=== PATIENT | female | born 1950 | race Caucasian/White ===

== ENCOUNTER 2019-06-14 06:00 | Outpatient (RCR) | payer MEDICARE, OTHER, SELFPAY | END 2019-06-29 23:00 | disposition home or self-care (01) | LOC: SPT 06:00 | PROVIDERS: Family Provider Nurse Practitioner Family; Visit Provider Orthopaedic Surgery | DX: Z47.89 Encounter for other orthopedic aftercare (principal); M75.102 Unspecified rotator cuff tear or rupture of left shoulder, not specified as traumatic; M25.612 Stiffness of left shoulder, not elsewhere classified; M25.512 Pain in left shoulder; R53.1 Weakness | CPT/HCPCS: 97110 ×4 ==

== ENCOUNTER 2019-07-21 13:37 | Outpatient (RCR) | payer MEDICARE, OTHER, SELFPAY | END 2019-08-14 23:59 | disposition home or self-care (01) | LOC: PULRHB 13:37 | PROVIDERS: Family Provider Nurse Practitioner Family; PCP Nurse Practitioner Family; Visit Provider Internal Medicine Pulmonary Disease | DX: J44.9 Chronic obstructive pulmonary disease, unspecified (principal) ==

== ENCOUNTER → 2019-08-13 08:12 | Outpatient (BNVA) | payer MEDICARE, OTHER, SELFPAY | PROVIDERS: Family Provider Nurse Practitioner Family; PCP Nurse Practitioner Family; Visit Provider Specialist | DX: G43.711 Chronic migraine without aura, intractable, with status migrainosus (principal); I67.1 Cerebral aneurysm, nonruptured | CPT/HCPCS: 64615; 99212; J0585 ==

== ENCOUNTER 2019-08-17 08:00 | Outpatient (RCR) | payer MEDICARE, OTHER, SELFPAY ==
[2019-08-17 08:40] VITALS: BMI 25.5
[2019-08-17 08:42] VITALS: BP 110/69; PULSE 94; RESP 16; TEMP 36.4; O2SAT 96
[2019-08-24 08:01] VITALS: BP 123/73; PULSE 107; RESP 16; TEMP 36.2; O2SAT 98
[2019-08-24 08:02] VITALS: BMI 24.3
== END 2019-09-12 23:59 | disposition home or self-care (01) ==
LOC: GILAB 08:00
PROVIDERS: Family Provider Nurse Practitioner Family; PCP Family Medicine; Visit Provider Nurse Practitioner Family
DX: N18.3 Chronic kidney disease, stage 3 (moderate) (principal); D50.9 Iron deficiency anemia, unspecified
CPT/HCPCS: 96365; J1439

== ENCOUNTER → 2019-11-12 09:14 | Outpatient (BNVA) | payer MEDICARE, OTHER, SELFPAY | PROVIDERS: Family Provider Nurse Practitioner Family; PCP Family Medicine; Visit Provider Specialist | DX: G43.711 Chronic migraine without aura, intractable, with status migrainosus (principal) | CPT/HCPCS: 64615; J0585 ==

== ENCOUNTER 2019-12-14 06:00 | Outpatient (RCR) | payer MEDICARE, OTHER, SELFPAY | END 2020-01-12 23:59 | disposition home or self-care (01) | LOC: PULRHB 06:00 | PROVIDERS: PCP Family Medicine; Visit Provider Internal Medicine Pulmonary Disease | DX: J44.9 Chronic obstructive pulmonary disease, unspecified (principal) | CPT/HCPCS: G0424 ==

== ENCOUNTER 2019-12-31 11:00 | Outpatient (CLI) | payer MEDICARE, OTHER, SELFPAY | END 2019-12-31 11:01 | disposition home or self-care (01) | LOC: SLEEP 01-01 10:47 | PROVIDERS: PCP Family Medicine; Visit Provider Internal Medicine Critical Care Medicine | DX: J44.9 Chronic obstructive pulmonary disease, unspecified (principal) | CPT/HCPCS: 94762 ==

== ENCOUNTER 2020-01-06 12:01 | Outpatient (CLI) | payer MEDICARE, OTHER, SELFPAY ==
[2020-01-06 13:30] VITALS: O2SAT 93
--- NOTE | 2020-01-06 13:30 | USCV_ITS ---
Sunitha Hawkins Age: 69 Gender: F : 1950 Exam Date: 01/06/2020 12:41 Ordering Phys: Bruno Hernandez MD Technologist: Julianna Anderson [place] [facility] [place]: SOB MURMUR BP: / HR: 78 Rhythm: Sinus Technical Quality: Adequate MEASUREMENTS (Male / Female) Normal Values 2D ECHO LV Diastolic Diameter PLAX 4.0 cm 4.2 - 5.9 / 3.9 - 5.3 cm LV Systolic Diameter PLAX 2.5 cm LV Chamber Size 2.6 cm IVS Diastolic Thickness 1.5 cm 0.6 - 1.0 / 0.6 - 0.9 cm IVS Systolic Thickness 1.7 cm LVPW Diastolic Thickness 1.1 cm 0.6 - 1.0 / 0.6 - 0.9 cm LVPW Systolic Thickness 1.3 cm RV Chamber Size 3.7 cm LVOT Diameter 2.0 cm LV Ejection Fraction 2D Teich 67.7 % LV Ejection Fraction MOD 2C 61.8 % LV Ejection Fraction 2C AL 61.8 % LA Diameter 2.9 cm LA Width 3.0 cm LA Height 3.5 cm RA Width 3.7 cm RA Height 4.1 cm Aorta at Sinotubular Diameter 2.8 cm M-MODE LV Diastolic Diameter MM 4.3 cm 4.2 - 5.9 / 3.9 - 5.3 cm LV Systolic Diameter MM 2.8 cm LV Ejection Fraction MM Teich 65.4 % IVS Diastolic Thickness MM 1.3 cm 0.6 - 1.0 / 0.6 - 0.9 cm IVS Systolic Thickness MM 1.5 cm LVPW Diastolic Thickness MM 1.1 cm 0.6 - 1.0 / 0.6 - 0.9 cm LVPW Systolic Thickness MM 1.3 cm RV Diastolic Diameter MM 1.2 cm Aortic Annulus Diameter 3.9 cm LA Ao Ratio MM 0.7 MV E Point Septal Separation 0.2 cm DOPPLER AV Peak Velocity 137.0 cm/s LVOT Peak Velocity 113.0 cm/s AV Area Cont Eq vti 2.7 cm squared AV Area Cont Eq pk 2.7 cm squared MV Area PHT 4.8 cm squared Mitral E to A Ratio 1.0 MV E' Velocity 14.0 cm/s Mitral E to MV E' Ratio 5.5 Mitral E to LV E' Lateral Ratio 4.5 Mitral E to LV E' Septal Ratio 7.1 TR Peak Velocity 212.7 cm/s TR Peak Gradient 18.1 mmHg TR Mean Velocity 168.7 cm/s TR Mean Gradient 12.4 mmHg TR Velocity Time Integral 46.4 cm TV Peak E Velocity 56.0 cm/s PV Peak Velocity 75.0 cm/s QpQs Shunt Ratio 1.5 RV Acceleration Time 0.2 s RV Ejection Time 0.4 s RV AcT/ET 0.4 FINDINGS Left Ventricle Normal left ventricular cavity size. Normal left ventricular systolic function.left ventricular ejection fraction is estimated at 60 %. No regional wall motion abnormalities. Grade I/IV diastolic dysfunction (abnormal relaxation filling pattern), normal to mildly elevated filling pressures. Right Ventricle The right ventricle is normal in size and function. RVSP could not be calculated due to incomplete tricuspid regurgitation velocity profile. Right Atrium The right atrium is normal in size. Left Atrium The left atrium is normal in size. Mitral Valve Structurally normal mitral valve without significant stenosis or prolapse. There is no mitral regurgitation. Aortic Valve Moderate aortic valve calcification. No aortic valve stenosis. Trace aortic valve regurgitation. Tricuspid Valve Structurally normal tricuspid valve without significant stenosis or regurgitation. Pulmonic Valve Structurally normal pulmonic valve without significant stenosis. There is no pulmonic regurgitation. Pericardium Normal pericardium without effusion. Aorta Normal ascending aorta dimension. CONCLUSIONS 1-Normal left ventricular cavity size. Normal left ventricular systolic function.left ventricular ejection fraction is estimated at 60 %. No regional wall motion abnormalities. Grade I/IV diastolic dysfunction (abnormal relaxation filling pattern), normal to mildly elevated filling pressures. 2-The right ventricle is normal in size and function. RVSP could not be calculated due to incomplete tricuspid regurgitation velocity profile. 3-Moderate aortic valve calcification. No aortic valve stenosis. Trace aortic valve regurgitation. 4-Moderate aortic valve calcification. No aortic valve stenosis. Trace aortic valve regurgitation. 5-There is no pericardial effusion. 6-Right atrial pressure is around 5 mm of mercury. 7-No significant change since the prior echocardiogram study of 04/05/2015. Erica Leija MD (Electronically Signed) Final Date: 06 January 2020 18:27 S
== END 2020-01-06 12:02 | disposition home or self-care (01) ==
LOC: RAD 12:06
PROVIDERS: PCP Family Medicine; Visit Provider Internal Medicine Critical Care Medicine
DX: J44.9 Chronic obstructive pulmonary disease, unspecified (principal); R06.02 Shortness of breath; R01.1 Cardiac murmur, unspecified; I70.0 Atherosclerosis of aorta
CPT/HCPCS: 93306

== ENCOUNTER 2020-01-13 06:00 | Outpatient (RCR) | payer MEDICARE, OTHER, SELFPAY | END 2020-02-12 23:59 | disposition home or self-care (01) | LOC: PULRHB 06:00 | PROVIDERS: PCP Family Medicine; Visit Provider Internal Medicine Pulmonary Disease | DX: J44.9 Chronic obstructive pulmonary disease, unspecified (principal) | CPT/HCPCS: 94010; G0424 ==

== ENCOUNTER 2020-03-17 14:45 | Outpatient (CLI) | payer MEDICARE, OTHER, SELFPAY ==
--- NOTE | 2020-03-17 15:15 | CT_ITS ---
WS: [id number] CT CHEST TECHNIQUE: Noncontrast CT of the chest with coronal and sagittal reformatted images. CLINICAL INFORMATION: Pulmonary nodule COMPARISON: CT and 2018 DLP: 804.[address] scans at [facility] use at least one of these dose optimization techniques: automat ed exposure control; mA and/or kV adjustment per patient size (includes targeted exams where dose is matched to clinical indication); or iterative reconstruction. FINDINGS: Stable postoperative changes left upper lobectomy. Moderate chronic emphysematous changes. No acute p ulmonary infiltrates. No focal pneumonia or pleural fluid. 3 mm noncalcified pulmonary nodule left lo wer lobe laterally is stable. Previously described hazy opacity in right lower lobe has resolved in t he interim. Thyroid gland is normal. No mediastinal or hilar lymphadenopathy. Adrenal glands are normal. Cholecys tectomy clips. Fatty atrophy of the pancreas. No axillary lymphadenopathy. Prior postoperative change s left upper lobe. CT/CT chest wo con [id number] IMPRESSION: 1. Moderate chronic emphysematous changes. No acute pulmonary infiltrates. 2. Previously described hazy opacity in the right lower lobe has resolved. 3. Stable postoperative changes left upper lobectomy. 4. No mediastinal or hilar lymphadenopathy. 5. Long-term stability 3 mm noncalcified pulmonary nodule left lower lobe late rally.
== END 2020-03-17 14:46 | disposition home or self-care (01) ==
LOC: RADWPI 14:48
PROVIDERS: PCP Family Medicine; Visit Provider Internal Medicine Critical Care Medicine
DX: R91.1 Solitary pulmonary nodule (principal)
CPT/HCPCS: 71250

== ENCOUNTER → 2020-06-30 12:24 | Outpatient (BNVA) | payer MEDICARE, OTHER, SELFPAY | PROVIDERS: PCP Family Medicine; Visit Provider Specialist | DX: G43.711 Chronic migraine without aura, intractable, with status migrainosus (principal); Z87.891 Personal history of nicotine dependence | CPT/HCPCS: 64615; J0585 ==

== ENCOUNTER 2020-09-15 08:41 | Outpatient (CLI) | payer MEDICARE, OTHER, SELFPAY ==
--- NOTE | 2020-09-15 08:52 | MM_ITS ---
WS: [id number] BILATERAL DIGITAL SCREENING MAMMOGRAPHY WITH CAD CLINICAL INFORMATION: SCREENING COMPARISON: TECHNIQUE: Bilateral CC and MLO views. FINDINGS: Scattered fibroglandular densities bilaterally. No suspicious focal mass, asymmetry, calcifications, or architectural distortion. No evidence of malignancy. Punctate and lucent centered calcifications. Calcified fibroadenoma inner quadrant left breast. MM/[place] [id number] IMPRESSION: BI-RADS: 2-Benign FOLLOW UP: 1 Year Follow-up Recommend return to annual screening mammography.
== END 2020-09-15 08:42 | disposition home or self-care (01) ==
LOC: RADSHAW 08:42
PROVIDERS: PCP Family Medicine; Visit Provider Family Medicine
DX: Z12.31 Encounter for screening mammogram for malignant neoplasm of breast (principal)
CPT/HCPCS: 77067

== ENCOUNTER → 2020-09-22 08:09 | Outpatient (BNVA) | payer MEDICARE, OTHER, SELFPAY | PROVIDERS: PCP Family Medicine; Visit Provider Specialist | DX: G43.711 Chronic migraine without aura, intractable, with status migrainosus (principal); Z87.891 Personal history of nicotine dependence | CPT/HCPCS: 64615; J0585 ==

== ENCOUNTER → 2020-10-05 15:47 | Outpatient (BNVA) | payer MEDICARE, OTHER, SELFPAY | PROVIDERS: PCP Family Medicine; Visit Provider Internal Medicine | DX: Z01.812 Encounter for preprocedural laboratory examination (principal); R19.5 Other fecal abnormalities; D50.9 Iron deficiency anemia, unspecified; Z20.822 Contact with and (suspected) exposure to COVID-19 | CPT/HCPCS: 87635 ==

== ENCOUNTER 2020-10-10 08:20 | Day surgery (SDC) | payer MEDICARE, OTHER, SELFPAY ==
[2020-10-07 12:10] VITALS: BMI 25.4
[2020-10-10 08:51] VITALS: BP 143/85; PULSE 94; RESP 16; TEMP 36.3; O2SAT 92
--- NOTE | 2020-10-10 09:14 | W.PM.OPSUD ---
Surgery/Procedure H&P Update DATE OF PROCEDURE: October 10, 2020 DATE H&P PERFORMED: 10/05/20 PREOP DIAGNOSIS: Double PLANNED PROCEDURE: Operation Date: 10/10/20 09:30 Proposed Procedures p EGD/colonoscopy [id number] 67421 19.5(Not Applicable) - Nishant Villagran MD s Colonoscopy(Not Applicable) - Nishant Villagran MD
[2020-10-10] MEDS: sodium chloride 0.9% 1,000 ML 30 ML IV (09:20)
--- NOTE | 2020-10-10 09:37 | ANES.PREANE2 ---
Pre-Anesthetic Assessment Pre-Anesthetic Assessment: Height/Weight: Height 1.78 m Weight 80.286 kg Temp Pulse Resp BP Pulse Ox 97.4 F L 94 16 143/85 92 10/10/20 08:51 10/10/20 08:51 10/10/20 08:51 10/10/20 08:51 10/10/20 08:51 Preop Diagnosis: Occult blood in stool Proposed Procedure: Operation Date: 10/10/20 09:30 Proposed Procedures p EGD/colonoscopy 39401 13365 19.5(Not Applicable) - Nishant Villagran MD s Colonoscopy(Not Applicable) - Nishant Villagran MD Was Beta Jaylen taken within 24 hours: N/A Was Clonidine taken within 24 hours: N/A Last intake: Intake Last Liquid Date 10/09/20 Last Liquid Time 12:00 Last Solid Date 10/08/20 Last Solid Time 18:00 Social: Social History: No alcohol and No tobacco Exam: Pre-Anes Outpt Exam: alert and oriented x 3 Airway: Submandibular: WNL Cervical ROM: WNL MP: 1 Dentition: Full History/ROS: No significant history except as noted Pulmonary: Pulmonary: COPD and SOB (with exercise.) Comments: pulmonary rehab patient left 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 CV/HEM: Comments: patient reports tachycardia with exercise, which does not resolve. : : None reported Hepatic: Hepatic: None reported GI: GI: GERD Metabolic: Metabolic: None reported Musc/skel: Musc/skel: None reported Neuropsych: Neuropsych: None reported Anesthetic Plan: ASA status: 3 Anesthesia: Anesthesia Evaluation and MAC Risk of > 500 ml blood loss (7ml/kg in children): No Meds/Allergies Current Medications: Current Medications Generic Name Dose Route Start Last Admin Trade Name Freq PRN Reason Stop Dose Admin Sodium Chloride 1,000 mls @ 30 ml s/hr 10/10/20 08:30 10/10/20 09:20 Sodium Chloride 0.9% IV 30 mls/hr .Q24H MESSI Administration PFSH Anesthesia PFSH: Medical History (Updated 10/05/20 @ 15:33 by Nishant Villagran MD) COPD (chronic obstructive pulmonary disease) Depression with anxiety Surgical History H/O knee surgery H/O shoulder surgery History of cholecystectomy History of hysterectomy History of lobectomy of lung History of lung surgery Social History Smoking and tobacco status: former smoker Quit status (tobacco): has quit using tobacco Year quit tobacco: 2002 - >0.5 ppd x 15 Year Alcohol intake: never Lives independently: Yes Household members: spouse Marital status: Current occupational status: retired History of recent travel: No Data Anesthesia Cardiac Studies: No Data to Display
[2020-10-10 10:09] VITALS: BP 118/87; PULSE 82; RESP 12; TEMP 36.5; O2SAT 100
[2020-10-10 10:23] VITALS: BP 129/83; PULSE 85; RESP 10; O2SAT 95
--- NOTE | 2020-10-10 10:46 | ANE.PACU2 ---
Inpatient post-anesthesia follow up: Airway intact: Yes Vital signs: Temperature 97.7 F Pulse Rate 85 Respiratory Rate 10 Blood Pressure 129/83 Pulse Oximetry 95 Oxygen Delivery Me thod Room Air Oxygen Flow Rate 2 Fraction of Inspir ed Oxygen Hydration adequate: Yes Mental status: Baseline
[2020-10-11 14:14] LABS: H. Pylori / CLO Test Negative
== END 2020-10-10 11:03 | disposition home or self-care (01) ==
PROVIDERS: PCP Family Medicine; Visit Provider Internal Medicine
PROC: 0DJ08ZZ Inspection of Upper Intestinal Tract, Via Natural or Artificial Opening Endoscopic (ICD-10-PCS; CPT 43235; principal; 2020-10-10 09:30)
PROC: 0DJD8ZZ Inspection of Lower Intestinal Tract, Via Natural or Artificial Opening Endoscopic (ICD-10-PCS; CPT 45378; 2020-10-10 09:30)
DX: D50.9 Iron deficiency anemia, unspecified (principal); K29.71 Gastritis, unspecified, with bleeding; R19.5 Other fecal abnormalities; J44.9 Chronic obstructive pulmonary disease, unspecified; Z87.891 Personal history of nicotine dependence
CPT/HCPCS: 43239; 45378; 87077; 88305; J7030

== ENCOUNTER → 2020-10-26 13:05 | Day surgery (SDC) | payer MEDICARE, OTHER, SELFPAY ==
[2020-10-26] MEDS: ferric carboxy (IVPB) 750 MG in sodium chloride 0.9% (100 ml) 100 ML 345 MG IV (13:30)
[2020-10-26 14:04] VITALS: BP 127/67; PULSE 89; RESP 18; TEMP 36.1; O2SAT 97; BMI 24.5
== END ==
PROVIDERS: PCP Family Medicine; Visit Provider Internal Medicine
DX: D50.9 Iron deficiency anemia, unspecified (principal)
CPT/HCPCS: 96365; J1439

== ENCOUNTER → 2020-11-01 12:33 | Day surgery (SDC) | payer MEDICARE, OTHER, SELFPAY ==
[2020-11-01 12:55] VITALS: BP 127/75; PULSE 98; RESP 18; TEMP 36.5; O2SAT 98; BMI 24.5
[2020-11-01] MEDS: ferric carboxy (IVPB) 750 MG in sodium chloride 0.9% (100 ml) 100 ML 300 MG IV (13:28)
== END ==
PROVIDERS: PCP Family Medicine; Visit Provider Internal Medicine
DX: D50.9 Iron deficiency anemia, unspecified (principal)
CPT/HCPCS: 96365; J1439

== ENCOUNTER → 2020-11-23 13:00 | Outpatient (BNVA) | payer MEDICARE, OTHER, SELFPAY | PROVIDERS: PCP Family Medicine; Visit Provider Internal Medicine | DX: K90.9 Intestinal malabsorption, unspecified (principal); K29.71 Gastritis, unspecified, with bleeding; R19.5 Other fecal abnormalities; D50.9 Iron deficiency anemia, unspecified | CPT/HCPCS: 83550; 85025 ==

== ENCOUNTER 2021-01-04 16:59 | Outpatient (CLI) | payer MEDICARE, OTHER, SELFPAY ==
--- NOTE | 2021-01-04 17:30 | MR_ITS ---
WS: [id number] MRI LUMBAR SPINE NONCONTRAST HISTORY: Lumbar pain with failed medical therapy. COMPARISON: None available. TECHNIQUE: Sagittal and axial multisequence imaging is submitted. Compression fracture at T7 by 20%. Slight increase in the lumbar lordosis. L4 anterolisthesis by 3 mm. No acute fracture. There is mild marrow edema involving the superior endplate of L5. Mild disc space desiccation throughout. Conus terminates normally at L1. L1-L2: Mild facet joint arthritis. No stenosis. L2-L3: Mild annular disc bulging with ligamentum flavum hypertrophy and facet arthritis. Small amount of fluid in the facet joints. There is very slight encroachment upon the L3 nerve roots in the later al recesses. L3-L4: Diffuse annular disc bulging. Mild ligamentum flavum hypertrophy and a small amount of fluid i n the facet joints. Mild disc encroachment into the lateral recesses contacting the L4 nerve roots. L4-L5: Mild annular disc bulge with a central small disc protrusion. Moderate ligamentum flavum hyper trophy and facet arthritis. Ligamentum flavum hypertrophy encroaches into the thecal sac causing a mo derate central, bilateral subarticular recess and mild foraminal stenosis. L5-S1: Mild disc bulging. No significant stenosis. Small cortical LEFT renal cyst. Abdominal aortic aneurysm measures 3.1 cm in diameter. MR/MR lumbar spine wo con* [id number] IMPRESSION: 1. No acute lumbar spine fracture. 2. Moderate central and bilateral subarticular recess stenosis at L4-5 due to disc disease with a small central protrusion and ligamentum flavum hypertrophy. Only mild foraminal narrowing. 3. Mild encroachment into the lateral recesses at L2-3 and L3-4 with encroachm ent upon the L3 and L4 nerve roots respectively. 4. Age-indeterminate 20% T7 compression fracture.
== END 2021-01-04 17:00 | disposition home or self-care (01) ==
LOC: RADSHAW 17:03
PROVIDERS: PCP Family Medicine; Visit Provider Internal Medicine
DX: M54.5 Low back pain (principal); M48.061 Spinal stenosis, lumbar region without neurogenic claudication; I71.4 Abdominal aortic aneurysm, without rupture; N28.1 Cyst of kidney, acquired; S22.069A Unspecified fracture of T7-T8 vertebra, initial encounter for closed fracture; X58.XXXA Exposure to other specified factors, initial encounter
CPT/HCPCS: 72148

== ENCOUNTER → 2021-01-26 15:46 | Outpatient (BNVA) | payer MEDICARE, OTHER, SELFPAY | PROVIDERS: PCP Family Medicine; Visit Provider Orthopaedic Surgery | DX: M54.5 Low back pain (principal); M81.0 Age-related osteoporosis without current pathological fracture; M47.816 Spondylosis without myelopathy or radiculopathy, lumbar region | CPT/HCPCS: 72110 ==

== ENCOUNTER → 2021-01-30 14:00 | Outpatient (BNVA) | payer MEDICARE, OTHER, SELFPAY | PROVIDERS: PCP Family Medicine; Referring Provider Orthopaedic Surgery; Visit Provider Anesthesiology Pain Medicine | DX: M43.16 Spondylolisthesis, lumbar region (principal); M47.816 Spondylosis without myelopathy or radiculopathy, lumbar region; Z79.891 Long term (current) use of opiate analgesic | CPT/HCPCS: 99205 ==

== ENCOUNTER → 2021-02-23 10:39 | Outpatient (BNVA) | payer MEDICARE, OTHER, SELFPAY | PROVIDERS: PCP Family Medicine; Referring Provider Internal Medicine; Visit Provider Specialist | DX: M75.02 Adhesive capsulitis of left shoulder (principal) | CPT/HCPCS: 73030 ==

== ENCOUNTER 2021-03-07 16:31 | Outpatient (CLI) | payer MEDICARE, OTHER, SELFPAY ==
--- NOTE | 2021-03-07 16:45 | MR_ITS ---
WS: [id number] MRI LEFT SHOULDER NONCONTRAST TECHNIQUE: Sagittal T2, coronal T1, T2 and proton density imaging. Axial gradient PDE imaging. CLINICAL INFORMATION: M75.40 - Impingement syndrome of unspecified shoulder FINDINGS: Moderate degenerative arthritis of the AC joint with mild downsloping acromion. Mild edema. Small shabnam unt of subacromial/subdeltoid fluid. Chronic thinning of the distal supraspinatus with tendinopathy. Tiny intrasubstance tear in the distal supraspinatus. Mild narrowing of the subacromial space. No ful l-thickness rotator cuff tears. Normal infraspinatus. Normal teres minor. Normal subscapularis. Small joint effusion. Degenerative arthritis glenohumeral joint. Normal biceps tendon in the bicipital groove. Glenoid labrum appears grossly normal. Normal bone jocelyn ow signal in the glenoid and humerus. Evidence of presumed interval acromioplasty compared to previou s. MR/MR shoulder LT wo con* [id number] IMPRESSION: 1. Evidence of prior acromioplasty compared to 2019. 2. Tendinopathy with small intrasubstance tear involving the distal supraspina tus near the insertion. No full-thickness rotator cuff tears. 3. Mild chronic thinning of the distal supraspinatus and infraspinatus. 4. Normal biceps tendon in the bicipital groove. 5. Glenoid labrum appears grossly normal.
== END 2021-03-07 16:32 | disposition home or self-care (01) ==
LOC: RADSHAW 16:35
PROVIDERS: PCP Family Medicine; Visit Provider Specialist
DX: M75.42 Impingement syndrome of left shoulder (principal)
CPT/HCPCS: 73221

== ENCOUNTER 2021-03-15 06:00 | Outpatient (RCR) | payer MEDICARE, OTHER, SELFPAY | END 2021-04-13 23:59 | disposition home or self-care (01) | LOC: PULRHB 06:00 | PROVIDERS: PCP Internal Medicine; Visit Provider Internal Medicine Pulmonary Disease | DX: J44.9 Chronic obstructive pulmonary disease, unspecified (principal); M47.816 Spondylosis without myelopathy or radiculopathy, lumbar region; Z79.891 Long term (current) use of opiate analgesic | CPT/HCPCS: 64493; 64494; 64495; J3490 ==

== ENCOUNTER → 2021-03-30 10:27 | Outpatient (BNVA) | payer MEDICARE, OTHER, SELFPAY | PROVIDERS: PCP Internal Medicine; Visit Provider Anesthesiology Pain Medicine | DX: M43.16 Spondylolisthesis, lumbar region (principal); M47.816 Spondylosis without myelopathy or radiculopathy, lumbar region; Z79.891 Long term (current) use of opiate analgesic | CPT/HCPCS: 99214 ==

== ENCOUNTER → 2021-04-11 13:00 | Outpatient (BNVA) | payer MEDICARE, OTHER, SELFPAY | PROVIDERS: PCP Internal Medicine; Visit Provider Anesthesiology Pain Medicine | DX: M47.816 Spondylosis without myelopathy or radiculopathy, lumbar region (principal); Z79.891 Long term (current) use of opiate analgesic | CPT/HCPCS: 64635; 64636 ==

== ENCOUNTER → 2021-04-25 12:48 | Outpatient (BNVA) | payer MEDICARE, OTHER, SELFPAY | PROVIDERS: PCP Internal Medicine; Visit Provider Anesthesiology Pain Medicine | DX: M47.816 Spondylosis without myelopathy or radiculopathy, lumbar region (principal); Z79.891 Long term (current) use of opiate analgesic; Z87.891 Personal history of nicotine dependence | CPT/HCPCS: 64635; 64636; J1030 ==

== ENCOUNTER → 2021-05-01 09:48 | Outpatient (BNVA) | payer MEDICARE, OTHER, SELFPAY | PROVIDERS: PCP Internal Medicine; Visit Provider Nurse Practitioner Family | DX: R30.9 Painful micturition, unspecified (principal); R41.0 Disorientation, unspecified; R46.89 Other symptoms and signs involving appearance and behavior; R53.83 Other fatigue; R41.89 Other symptoms and signs involving cognitive functions and awareness; D50.9 Iron deficiency anemia, unspecified; N30.01 Acute cystitis with hematuria; R41.3 Other amnesia; E78.5 Hyperlipidemia, unspecified; R30.0 Dysuria | CPT/HCPCS: 80053; 81003; 82607; 82728; 83550; 84443; 87077; 87086; 87184 ==

== ENCOUNTER → 2021-05-09 08:59 | Outpatient (BNVA) | payer MEDICARE, OTHER, SELFPAY | PROVIDERS: PCP Internal Medicine; Visit Provider Anesthesiology Pain Medicine | DX: M79.18 Myalgia, other site (principal); M43.16 Spondylolisthesis, lumbar region; M47.816 Spondylosis without myelopathy or radiculopathy, lumbar region; Z87.891 Personal history of nicotine dependence | CPT/HCPCS: 20553; 99213; 99214; J1030; J3490 ==

== ENCOUNTER 2021-05-15 12:58 | Outpatient (CLI) | payer MEDICARE, OTHER, SELFPAY ==
--- NOTE | 2021-05-15 13:15 | CT_ITS ---
WS: [id number] CT HEAD NONCONTRAST HISTORY: Memory loss, Behaviors/Confusion TECHNIQUE: Contiguous axial imaging performed through the brain in 2.5 mm imaging. Bone and soft tiss ue windows. All CT scans at [facility] use at least one of these dose optimization techniques: automated exposure control; mA and/or kV adjustment per patient size (includes targeted exams where dose is matched to clinical indication); or iterative reconstruction. DLP: 992.04 mGycm COMPARISON: 08/27/2016 No acute intracranial hemorrhage, midline shift or mass effect. Very mild atrophy and mild chronic microvascular ischemic type changes. Similar to the prior examinat ion. No prior infarcts. Ventricles: Normal size with no hydrocephalus. Paranasal sinuses: As visualized are clear. Mastoid air cells: Well pneumatized. Calvarium and scalp: Skull is intact with no soft tissue edema or swelling. CT/CT head wo con* [id number] IMPRESSION: 1. No acute intracranial hemorrhage or mass effect. 2. Mild atrophy and chronic ischemic type changes. Very similar to the prior s tudy of 08/27/2016.
== END 2021-05-15 12:59 | disposition home or self-care (01) ==
PROVIDERS: PCP Internal Medicine; Visit Provider Nurse Practitioner Family
DX: R46.89 Other symptoms and signs involving appearance and behavior (principal); G31.9 Degenerative disease of nervous system, unspecified
CPT/HCPCS: 70450

== ENCOUNTER 2021-06-14 06:00 | Outpatient (RCR) | payer MEDICARE, OTHER, SELFPAY | END 2021-07-14 23:59 | disposition home or self-care (01) | LOC: SPT 06:00 | PROVIDERS: PCP Internal Medicine; Referring Provider Orthopaedic Surgery; Visit Provider Orthopaedic Surgery | DX: M43.16 Spondylolisthesis, lumbar region (principal) | CPT/HCPCS: 97110; 97161 ==

== ENCOUNTER → 2021-08-02 09:09 | Outpatient (BNVA) | payer MEDICARE, OTHER, SELFPAY | PROVIDERS: PCP Family Medicine; Visit Provider Anesthesiology Pain Medicine | DX: M43.16 Spondylolisthesis, lumbar region (principal); M47.816 Spondylosis without myelopathy or radiculopathy, lumbar region | CPT/HCPCS: 99214 ==

== ENCOUNTER 2021-10-12 14:04 | Outpatient (CLI) | payer MEDICARE, OTHER, SELFPAY ==
--- NOTE | 2021-10-12 14:18 | MM_ITS ---
WS: [id number] BILATERAL 3D TOMOSYNTHESIS DIGITAL SCREENING MAMMOGRAPHY WITH CAD CLINICAL INFORMATION: SCREENING HISTORY: Screening mammogram. No current complaints. COMPARISON: September 15, 2020 TECHNIQUE: Bilateral CC and MLO views. FINDINGS: Scattered fibroglandular densities bilaterally. Dystrophic calcification LEFT breast. Incidental punc amado calcifications are stable. No suspicious focal mass, asymmetry, calcifications, or architectural distortion. No evidence of malignancy. MM/[place] [id number] IMPRESSION: BI-RADS: 2-Benign FOLLOW UP: 1 Year Follow-up Recommend return to annual screening mammography.
== END 2021-10-12 14:05 | disposition home or self-care (01) ==
LOC: RAD 14:07
PROVIDERS: PCP Family Medicine; Visit Provider Family Medicine
DX: Z12.31 Encounter for screening mammogram for malignant neoplasm of breast (principal)
CPT/HCPCS: 77063; 77067

== ENCOUNTER → 2021-11-23 08:52 | Outpatient (BNVA) | payer MEDICARE, OTHER, SELFPAY | PROVIDERS: PCP Family Medicine; Visit Provider Internal Medicine Critical Care Medicine | DX: J44.9 Chronic obstructive pulmonary disease, unspecified (principal); J96.11 Chronic respiratory failure with hypoxia; R91.1 Solitary pulmonary nodule; A31.0 Pulmonary mycobacterial infection; Z87.891 Personal history of nicotine dependence | CPT/HCPCS: 71046; 99214 ==

== ENCOUNTER 2021-11-26 08:27 | Inpatient (IN) | payer MEDICARE, OTHER, SELFPAY ==
[2021-11-26] VITALS (14 sets, daily range): BP systolic 84–127; BP diastolic 52–61; PULSE 78–110; RESP 12–20; TEMP 36.6–37.3; O2SAT 90–100; BMI 21.6
--- NOTE | 2021-11-26 08:30 | XRR_ITS ---
PROCEDURE INFORMATION: Exam: XR Chest Exam date and time: 11/26/2021 8:46 AM Age: 70 years old Clinical indication: Shortness of breath; Prior surgery; Surgery date: 6+ months; Surgery type: Lt upper lobectomy; Additional info: SOB TECHNIQUE: Imaging protocol: XR of the chest. Views: 1 view. COMPARISON: CR XR chest 2V* [id number] 11/23/2021 9:45 AM FINDINGS: Lungs: Postsurgical changes in the left lung noted. Confluent ground-glass densities along the periphery of the right lung not present on prior exam. Pleural spaces: No pneumothorax. No pleural effusion. Heart/Mediastinum: The cardiomediastinal silhouette is within normal limits. Bones/joints: Unremarkable. XR/XR chest 1V portable [id number] IMPRESSION: Interval development of airspace opacities in the right lung concerning for pneumonia.
--- NOTE | 2021-11-26 08:31 | ECG_ITS ---
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 Measurements Intervals [facility] Rate: 107 P: 69 IL: 139 QRS: 75 QRSD: 90 T: 68 QT: 258 QTc: 345 Interpretive Statements SINUS TACHYCARDIA NONSPECIFIC T-WAVE ABNORMALITY ABNORMAL RHYTHM ECG Compared to ECG 03/31/2018 14:20:07 No significant changes Electronically Signed On 11-26-2021 13:24:19 CDT by Gricelda Winters M.D. [email or web address]
--- NOTE | 2021-11-26 08:43 | W.ED.SOB ---
HPI - SOB/Dyspnea General: Chief Complaint: Shortness of Breath/Dyspnea Stated Complaint: low oxygen/rattle in chest/shakiness/nausea Time Seen by Provider: 11/26/21 08:30 History of Present Illness: HPI Narrative: 70-year-old with history of COPD presents shortness of breath. States this started last night. Denies any fevers or chills. Does report rattling when she breathes and nausea but denies any abdominal pain chest pain vomiting diarrhea or constipation. Denies any lower extremity pain or swelling. She is normally on 2 L of oxygen with activity but now requires 4 L at rest. She was saturating at 86% at home on 2 L at rest. Review of Systems Narrative: - CONSTITUTIONAL: Denies weight loss, fever and chills. - HEENT: Denies changes in vision and hearing. - RESPIRATORY: As above - CV: Denies palpitations and CP. - GI: Denies abdominal pain, nausea, vomiting and diarrhea. - : Denies dysuria and urinary frequency. - MSK: Denies myalgia and joint pain. - SKIN: Denies rash and pruritus. - NEUROLOGICAL: Denies headache, weakness, numbness and syncope. - PSYCHIATRIC: Denies suicidal ideation PFSH ED PFSH: Medical History COPD (chronic obstructive pulmonary disease) Depression with anxiety Surgical History H/O knee surgery H/O shoulder surgery History of cholecystectomy History of hysterectomy History of lobectomy of lung History of lung surgery Family History Mother Stroke Denies family history of Anesthesia complication Bleeding disorder Social History Smoking and tobacco status: former smoker Quit status (tobacco): has quit using tobacco Year quit tobacco: 2002 - >0.5 ppd x 15 Year Alcohol intake: never Lives independently: Yes Household members: spouse Marital status: Current occupational status: retired History of recent travel: No Physical Exam Narrative: EXAM NARRATIVE: - GENERAL: Alert and oriented x 3. No acute distress. Well-nourished. - EYES: EOMI. Anicteric. - HENT: Atraumatic, no C-spine tenderness. Moist mucous membranes. No scleral icterus. No cervical lymphadenopathy. - LUNGS: On nasal cannula, bilateral wheezing, equal lung sounds bilaterally. No respiratory distress. - CARDIOVASCULAR: Regular rate and rhythm. No murmur. No JVD. - ABDOMEN: Soft, non-tender and non-distended. Negative CVA tenderness bilaterally, no rebound or guarding, negative Cabrera sign. No palpable masses. - EXTREMITIES: No edema. Non-tender. - SKIN: No rashes or lesions. Warm. - NEUROLOGIC: No meningismus or focal neurological deficits. CN II-XII grossly intact. - PSYCHIATRIC: Cooperative. Appropriate mood and affect. Course Vital Signs: Vital signs: Vital Signs Temperature 99.1 F 11/26/21 08:33 Pulse Rate 105 H 11/26/21 09:19 Respiratory Rate 18 11/26/21 09:07 Blood Pressure 89/61 11/26/21 09:07 Pulse Oximetry 99 11/26/21 09:07 MDM - SOB/Dyspnea Medical Decision Making 70-year-old presents shortness of breath. Does have increased oxygen need to 4 L by nasal cannula from baseline of 2. Physical exam also reveals wheezing concerning for COPD exacerbation. Improved albuterol and steroids. However x-ray concerning for pneumonia. Does have white count elevation. Sepsis order set initiated. Patient is hemodynamically stable afebrile nontoxic-appearing. D-dimer is elevated but CT scan does not reveal any sign of PE. EKG and troponin do not reveal any sign of acute ischemia or acute abnormality. Remainder of lab work and imaging reviewed. Discussed with hospitalist and they agreed patient would benefit from admission. Patient admitted in stable condition. Further evaluation management per hospitalist team. Lab Data : 11/26/21 09:03 11/26/21 09:03 Labs/Radiology: Radiology Impressions Chest X-Ray 11/26/21 08:30 IMPRESSION: Interval development of airspace opacities in the right lung concerning for pneumonia. Chest CTA 11/26/21 09:36 IMPRESSION: 1. No pulmonary embolism identified. No signs of right heart strain. 2. Airspace opacities in the lungs concerning for pneumonia most predominant in the right lower lobe. 3. Mild enlargement of the main pulmonary artery which may be seen in patients with pulmonary hypertension. 4. Emphysematous disease. Laboratory Results WBC 13.2 10^3/uL (4.0-10.0) H 11/26/21 09:03 RBC 4.11 10^6/uL (4.1-5.3) 11/26/21 09:03 Hgb 10.6 g/dL (11.5-15.3) L 11/26/21 09:03 Hct 36.1 % (37.0-47.0) L 11/26/21 09:03 MCV 87.8 fl (81-99) 11/26/21 09:03 MCH 25.8 pg (28.0-34.0) L 11/26/21 09:03 MCHC 29.4 g/dL (30.0-36.0) L 11/26/21 09:03 RDW 14.8 % (12.1-15.1) 11/26/21 09:03 Plt Count 369 10^3/cmm (130-400) 11/26/21 09:03 MPV 9.1 fL (7.4-10.4) 11/26/21 09:03 Neut % (Auto) 86.2 % 11/26/21 09:03 Lymph % (Auto) 7.8 % 11/26/21 09:03 [place] % (Auto) 4.9 % 11/26/21 09:03 Eos % (Auto) 0.6 % 11/26/21 09:03 Baso % (Auto) 0.2 % 11/26/21 09:03 Neut # (Auto) 11.37 10^3/uL (1.8-7.7) H 11/26/21 09:03 Lymph # (Auto) 1.0 10^3/uL (0.8-4.8) 11/26/21 09:03 [place] # (Auto) 0.7 10^3/uL (0.2-0.9) 11/26/21 09:03 Eos # (Auto) 0.1 10^3/uL (0.0-0.8) 11/26/21 09:03 Baso # (Auto) 0.0 10^3/uL (0.0-0.1) 11/26/21 09:03 Nucleated RBC % (auto) 0 % 11/26/21 09:03 Nucleated RBCs # 0.0 /100WBC 11/26/21 09:03 D-Dimer 1.13 ug/mIFEU (0-0.59) H 11/26/21 09:03 Specimen Type Arterial 11/26/21 09: Sample Site Brachial, right 11/26/21 09:01 ABG pH 7.27 (7.35-7.45) L 11/26/21 09:01 ABG pCO2 48.5 mmHg (35-45) H 11/26/21 09:01 ABG pO2 82.9 mmHg (80.0-100.0) 11/26/21 09: ABG HCO3 22.2 mmol/L (22-26) 11/26/21 09: ABG O2 Saturation 95.8 11/26/21 09: ABG Base Excess -4.7 mmol/L (-2.0-2.0) L 11/26/21 09: Bhaskar Test Pos 11/26/21 09: A-a O2 Gradient 16.6 mmHg (5-10) H 11/26/21 09: Hematocrit 31.4 % (37-47) L 11/26/21 09:01 Hgb O2 Saturation 94.6 % (95-100) L 11/26/21 09:01 Carboxyhemoglobin 0.9 %THgb (0.4-20.1) 11/26/21 09: Methemoglobin 0.5 % (0.4-1.5) 11/26/21 09: Total Hemoglobin 10.2 g/dL (12-16) L 11/26/21 09:01 Sodium 144.0 mmol/L (131-143) H 11/26/21 09:01 Potassium 3.7 mmol/L (3.5-5.0) 11/26/21 09:01 Glucose 156.0 mg/dL (70-115) H 11/26/21 09:01 Ionized Calcium 1.2 mmol/L (1.1-1.4) 11/26/21 09: O2 Delivery Device Nc 11/26/21 09: O2 Liters/Min 4.5 % 11/26/21 09:01 FiO2 38.0 % 11/26/21 09:01 Telesales Specialist ID [place]ro 11/26/21 09: Sodium 142 mmol/L (136-145) 11/26/21 09:03 Potassium 3.7 mmol/L (3.5-5.1) 11/26/21 09:03 Chloride 106 mmol/L (98-107) 11/26/21 09:03 Carbon Dioxide 22 mmol/L (22-29) 11/26/21 09:03 Anion Gap 17.7 (5-19) 11/26/21 09:03 BUN 14 mg/dL (8-23) 11/26/21 09:03 Creatinine 1.2 mg/dL (0.5-0.9) H 11/26/21 09:03 GFR Calculation 44.7 mL/min (90-130) L 11/26/21 09:03 Glucose 157 mg/dL (65-115) H 11/26/21 09:03 Calculated Osmolality 298 mOsm/kg (285-295) H 11/26/21 09:03 Lactate 1.6 mmol/L (0.5-2.2) 11/26/21 09:30 Calcium 9.1 mg/dL (8.5-10.5) 11/26/21 09:03 Total Bilirubin 0.2 mg/dL (0.15-1.2) 11/26/21 09:03 AST 28 U/L (0-32) 11/26/21 09:03 ALT 16 U/L (0-33) 11/26/21 09:03 Alkaline Phosphatase 106 IU/L (35-105) H 11/26/21 09:03 Troponin T Baseline 11 ng/L (0-10) H 11/26/21 09:03 NT-Pro-B Natriuret Pep 46 pg/mL (0-125) 11/26/21 09:03 Total Protein 6.6 g/dL (6.6-8.7) 11/26/21 09:03 Albumin 4.4 g/dL (3.5-5.2) 11/26/21 09:03 Globulin 2.2 g/dL (1.3-4.6) 11/26/21 09:03 SARS-CoV-2 Ag (Rapid) Negative (Negative) 11/26/21 09:30 EKG Data EKG 1: Other EKG Comments: Sinus tachycardia, rate of 107, no sign of acute ischemia or other acute abnormality. Discharge Plan Discharge Condition: Stable Prescriptions: No Action magnesium 250 mg tablet 250 mg PO QDAY 0RF (DME) oxygen-air delivery systems Device See Rx Instructions .ROUTE .MEDSUPPLY Qty: 1 0RF Rx Instructions: As directed omeprazole 40 mg capsule,delayed release(DR/EC) 40 mg PO DAILY 0RF Anoro Ellipta 62.5-25 mcg/actuation blister with device 1 inh inhalation DAILY 0RF diltiazem HCl [Cardizem] 60 mg tablet 60 mg PO BID 0RF ynlzewchws-znswxnbqzkaax-jjcc 50-325-40 mg tablet 1 tab PO Q6H PRN (Reason: pain) Qty: 30 0RF topiramate 50 mg tablet 50 mg PO BEDTIME Qty: 90 1RF trazodone 50 mg Tablet 50 mg PO DAILY 0RF nortriptyline 50 mg capsule 10 mg PO DAILY 0RF Referrals: Nilson Bradshaw MD [Primary Care Provider] - Coding Level of Care Code ED Sack Sorter for Martha Dickerson
[2021-11-26] MEDS: ondansetron 2 mg/ML SDV 2 mL 4 MG IVP (08:56)
[2021-11-26] MEDS: ipratropium-albuterol 3 mL Neb INHALATION ×2 (09:00→14:59)
[2021-11-26 09:13] LABS: ABG PCO2 48.5 mmHg (35-45); ABG PH Result 7.27 (7.35-7.45); Alveolar-Arterial Oxygen Gradi 16.6 mmHg (5-10); Arterial Blood Gas Hematocrit 31.4 % (37-47); Base Excess ABG -4.7 mmol/L (-2.0-2.0); Blood Gas Allen Test Pos; Blood Gas LPM 4.5 %; Blood Gas Operator Identificat MONRO; Blood Gas Sample Site Brachial, right; Blood Gas Sample Type Arterial; Carboxyhemoglobin 0.9 %THgb (0.4-20.1); HCO3 ABG 22.2 mmol/L (22-26); HGB O2 Sat 94.6 % (95-100); Ionized Calcium Level - ABG 1.2 mmol/L (1.1-1.4); Methemoglobin 0.5 % (0.4-1.5); Oxygen Device NC; Oxygen Saturation ABG 95.8; PO2 ABG 82.9 mmHg (80.0-100.0); Potassium Level - ABG 3.7 mmol/L (3.5-5.0); Total Hemoglobin 10.2 g/dL (12-16)
[2021-11-26 09:23] LABS: Basophils % 0.2 %; Eosinophils # 0.1 10^3/uL (0.0-0.8); Eosinophils % 0.6 %; Hematocrit 36.1 % (37.0-47.0); Hemoglobin 10.6 g/dL (11.5-15.3); Lymphocytes % 7.8 %; Mean Corpuscular HGB Conc 29.4 g/dL (30.0-36.0); Mean Corpuscular Hemoglobin 25.8 pg (28.0-34.0); Mean Corpuscular Volume 87.8 fl (81-99); Mean Platelet Volume 9.1 fL (7.4-10.4); Monocytes # 0.7 10^3/uL (0.2-0.9); Monocytes % 4.9 %; Neutrophils # 11.37 10^3/uL (1.8-7.7); Neutrophils % 86.2 %; Nucleated Red Blood Cells % 0 %; Platelet Count 369 10^3/cmm (130-400); Red Blood Count 4.11 10^6/uL (4.1-5.3); Red Cell Distribution Width 14.8 % (12.1-15.1); White Blood Count 13.2 10^3/uL (4.0-10.0)
[2021-11-26 09:35] LABS: D Dimer 1.13 ug/mIFEU (0-0.59)
--- NOTE | 2021-11-26 09:36 | CTR_ITS ---
PROCEDURE INFORMATION: Exam: CTA Chest With Contrast Exam date and time: 11/26/2021 10:39 AM Age: 70 years old Clinical indication: Shortness of breath; Prior surgery; Surgery date: 6+ months; Surgery type: Alexandr lobectoby; Additional info: Pe TECHNIQUE: Imaging protocol: Computed tomographic angiography of the chest with contrast. 3D rendering (Not supervised by radiologist): MIP and/or 3D reconstructed images were created by the technologist. Radiation optimization: All CT scans at this facility use at least one of these dose optimization techniques: automated exposure control; mA and/or kV adjustment per patient size (includes targeted exams where dose is matched to clinical indication); or iterative reconstruction. Contrast material: VISIPAQUE 320; Contrast volume: 65 ml; Contrast route: INTRAVENOUS (IV); COMPARISON: CTA Chest-Pulmonary Emb [id number] 04/05/2015 8:50 AM RADIATION DOSE METRICS: Total DLP (mGy-cm): 600.03 FINDINGS: Pulmonary arteries: Pulmonary artery is mildly enlarged measuring up to 3.3 cm in diameter. Aorta: Partially visualized abdominal aorta measures up to approximately 2.7 cm in diameter and demonstrates mild prominent atherosclerotic disease. Lungs: Postsurgical changes in the left upper lung. Emphysematous disease. Dense opacities in the right upper, middle, and lower lobes, most predominant in the posterior and lateral basal segments of the right lower lobe. Pleural spaces: No pneumothorax. No pleural effusion. Heart: The heart is within normal limits for size. No pericardial effusion is seen. No signs of right heart strain. Lymph nodes: The visualized supraclavicular region appears normal. No mediastinal or hilar adenopathy is identified. Gallbladder and bile ducts: The gallbladder is surgically absent. Spleen: Stable rim calcification in the spleen again noted unchanged from prior exam in 2014. Bones/joints: Mildly exaggerated kyphotic curvature in the thoracic spine. Mild multilevel degenerative changes in the thoracic spine. Soft tissues: Unremarkable. CT/CT angio chest PE protcl [id number] IMPRESSION: 1. No pulmonary embolism identified. No signs of right heart strain. 2. Airspace opacities in the lungs concerning for pneumonia most predominant in the right lower lobe. 3. Mild enlargement of the main pulmonary artery which may be seen in patients with pulmonary hypertension. 4. Emphysematous disease.
[2021-11-26 09:38] LABS: Troponin(5th) Baseline 11 ng/L (0-10)
[2021-11-26 09:45] LABS: Alanine Aminotransferase 16 U/L (0-33); Albumin Level 4.4 g/dL (3.5-5.2); Alkaline Phosphatase 106 IU/L (35-105); Anion Gap 17.7 (5-19); Aspartate Amino Transferase 28 U/L (0-32); Blood Urea Nitrogen 14 mg/dL (8-23); Calcium 9.1 mg/dL (8.5-10.5); Carbon Dioxide 22 mmol/L (22-29); Chloride 106 mmol/L (98-107); Globulin 2.2 g/dL (1.3-4.6); Glomerular Filtration Rate 44.7 mL/min (90-130); Glucose 157 mg/dL (65-115); NT Pro B Type Natriuretic Pept 46 pg/mL (0-125); Osmolality Calculated 298 mOsm/kg (285-295); Potassium 3.7 mmol/L (3.5-5.1); Sodium 142 mmol/L (136-145); Total Bilirubin 0.2 mg/dL (0.15-1.2); Total Protein 6.6 g/dL (6.6-8.7)
[2021-11-26] MEDS: levofloxacin-dextrose 5 % 750 MG/150 ML PREMIX 100 MG IV (09:55)
[2021-11-26 10:09] LABS: Lactate (Lactic Acid level) 1.6 mmol/L (0.5-2.2)
[2021-11-26 10:27] LABS: SARS Covid-2 Antigen Negative (Negative)
--- NOTE | 2021-11-26 10:31 | ECG_ITS ---
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 Measurements Intervals [place] Rate: 86 P: 9 MS: 154 QRS: -14 QRSD: 92 T: -18 QT: 319 QTc: 384 Interpretive Statements SINUS RHYTHM NONSPECIFIC T-WAVE ABNORMALITY Compared to ECG 11/26/2021 09:27:48 Sinus tachycardia no longer present T-wave abnormality still present Electronically Signed On 11-26-2021 13:27:32 CDT by Gricelda Winters M.D. [id number]
[2021-11-26] MEDS: iodixanol 320 mg/mL 100mL Btl IV (10:50)
[2021-11-26] MEDS: sodium chloride 0.9% 1,000 ML 999 ML IV (11:30)
--- NOTE | 2021-11-26 11:39 | PC.NURSE ---
PT placed on continuous NIBP, SpO2, and CM
[2021-11-26 12:00] LABS: Troponin 5 2HR 9.28 ng/L (0-10)
[2021-11-26 12:15] LABS: Troponin 5 2HR Delta -1.72 ABS# (0-10)
--- NOTE | 2021-11-26 13:33 | PM.HP ---
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 Denies significant cough. No phlegm production. No chest pain or pressure. No orthopnea/LE edema. In ER requiring 4 L nasal cannula supplementation initially saturating 86% on usual oxygen rate. Afebrile, but temp 99.1, with leukocytosis 13.2, with sinus tachycardia in low 100s, ABG 7.27/48.5/82.9 on 4.5 L nasal cannula. On chemistry creatinine noted 1.2, previously 1 in April 2021. Minimal alk phos elevation 106. Troponin so far unremarkable, 11-9.28. NT proBNP 46. Rapid COVID-19 negative, PCR pending. EKG w S tach. D-dimer abnormal 1.13. Chest x-ray interval development of airspace opacities in right lung concerning for pneumonia. CTA chest no PE, airspace opacities in the lungs concerning for pneumonia most predominant in right lower lobe. Mild enlargement of main pulmonary artery which may be seen in patients with pulmonary hypertension. Emphysematous disease. Received breathing treatment, steroid IV, Levaquin, fluid bolus. Review of Systems Const: Denies: fever(s), chills, body aches or malaise Eyes: Denies: change in vision, eye discomfort or eye redness ENMT: Denies: throat pain, oral sores or ear or mastoid pain Card: Denies: chest pain, edema, pre-syncope or dyspnea on exertion Resp: Reports: dyspnea; Denies: productive cough, change in phlegm color or hemoptysis GI: Reports: diarrhea (chronic); Denies: abdominal pain, nausea, vomiting, constipation, hematochezia or melena : Denies: flank pain, urinary frequency or hematuria Musc: Denies: back pain, joint swelling or joint redness Skin/Breast: Denies: rash or new lesions Neuro: Denies: headache(s), numbness in extremities, weakness in extremities, dizziness, confusion or seizure-like activity Endo: Denies: polyuria or polydipsia Mk/Lymph: Denies: easy bleeding or tender lymph nodes All/Imm: Denies: urticaria or tongue swelling Medications/Allergies Home Medications Medication Instructions Recorded Confirmed Last Taken Type magnesium 250 mg tablet 250 mg PO DAILY 08/13/19 11/26/21 11/25/21 History oxygen-air delivery systems #1 08/13/19 11/26/21 Unknown History diltiazem HCl 60 mg tablet 60 mg PO BID 11/12/19 11/26/21 11/25/21 History (Cardizem) trazodone 50 mg tablet 50 mg PO BEDTIME 10/07/20 11/26/21 11/25/21 History omeprazole 40 mg capsule,delayed 40 mg PO DAILY 05/26/21 11/26/21 11/26/21 History release umeclidinium 62.5 mcg-vilanterol 1 inh INHALATION DAILY 05/26/21 11/26/21 11/25/21 History 25 mcg/actuation powdr for inhalation (Anoro Ellipta) ovsnppczyi-leaytrjeavkos-jyzcyvqw 1 tab PO Q6H PRN #30 tab 06/22/21 11/26/21 Unknown Rx 50 mg-325 mg-40 mg tablet topiramate 50 mg tablet 50 mg PO BEDTIME #90 tab 08/04/21 11/26/21 11/25/21 Rx nortriptyline 50 mg capsule 10 mg PO BEDTIME cap 11/23/21 11/26/21 11/25/21 History hydrocodone 5 mg-acetaminophen 325 1 tab PO QID PRN 11/26/21 11/26/21 Unknown History mg tablet Allergies Allergy/AdvReac Type Severity Reaction Status Date / Time Penicillins Allergy Severe ALGY-Hives Verified 11/26/21 08:33 iron [From Venofer] AdvReac Severe ADR-Faintin Verified 11/26/21 08:33 g meperidine [From Demerol] AdvReac Severe ADR-Vomitin Verified 11/26/21 08:33 g PFSH Acute PFSH: Medical History Chronic migraine without aura, intractable, with status migrainosus COPD (chronic obstructive pulmonary disease) Depression with anxiety GERD (gastroesophageal reflux disease) Hemorrhagic gastritis Nontuberculous mycobacterial disease of lung Pulmonary nodule Spondylolisthesis at L4-L5 level Surgical History H/O knee surgery H/O shoulder surgery History of cholecystectomy History of hysterectomy History of lobectomy of lung History of lung surgery Family History Mother Stroke Denies family history of Anesthesia complication Bleeding disorder Social History Smoking and tobacco status: former smoker Quit status (tobacco): has quit using tobacco Year quit tobacco: 2002 - >0.5 ppd x 15 Year Alcohol intake: never Lives independently: Yes Household members: spouse Marital status: Current occupational status: retired History of recent travel: No Vitals/I&O/Wt Last Vital Signs Temp 99.1 F 11/26/21 08:33 Pulse 92 11/26/21 12:00 Resp 16 11/26/21 12:00 BP 127/60 11/26/21 12:00 Pulse Ox 100 11/26/21 12:00 Weight last 48 hrs Weight 70.307 kg Physical Exam Const: COMMON NORMALS: alert GENERAL APPEARANCE: cooperative ORIENTATION/CONSCIOUSNESS: Yes awake HENMT: COMMON NORMALS: normocephalic, EAC's normal, Normal external nose present and moist oral mucous membranes HEAD & SCALP: normocephalic NOSE: Normal external nose present EXTERNAL AUDITORY CANAL: EAC's normal Neck/C-Spine: COMMON NORMALS: no meningeal signs Chest: CHEST: Yes Symmetrical chest wall rise Resp: AUSCULTATION: clear to auscultation bilaterally and diminished lung sounds Cardio: COMMON NORMALS: regular rate, regular rhythm and No murmurs present (Cardio) RATE: regular rate RHYTHM: regular rhythm GI: COMMON NORMALS: Normal to inspection, nondistended, normoactive bowel sounds present, Soft to palpation and non-tender PALPATION: Yes Soft to palpation Extremity: COMMON NORMALS: no pedal edema Neuro: COMMON NORMALS: moves all extremities SENSORIUM/ORIENTATION: Yes alert MENINGEAL SIGNS: Yes no meningeal signs Psych: COMMON NORMALS: mental status grossly normal Skin: COMMON NORMALS: no wounds RASHES: no rashes Data : 11/26/21 09:03 11/26/21 09:03 Micro: Microbiology 11/26/21 10:28 Blood Culture - Preliminary Blood SPECIMEN COLLECTED 11/26/21 09:30 Blood Culture - Preliminary Blood SPECIMEN COLLECTED A&P Assessment and plan (1) CAP (community acquired pneumonia): Community-acquired pneumonia, with worse than usual hypoxia requiring 4 L of oxygen by nasal cannula. Possible sepsis with leukocytosis, sinus tachycardia, pulmonary source. Rapid COVID-negative. PCR requested. Blood cultures collected. Received Levaquin. Continue to antibiotic. Collect sputum cultures, urine bacterial antigens. MRSA PCR. With underlying abnormal pulmonary function with COPD, history of lung resection due to MAC NT proBNP is not elevated. Denies any symptoms of aspiration. History of severe/recurrent GERD with hemorrhage gastritis, but denies any reflux symptoms. Continues on PPI. Status: Acute (2) Hypoxia: As above Status: Acute (3) Sepsis: Possible sepsis with endorgan injury, with KAREN creatinine 1.2, secondary to pulmonary source, with leukocytosis 13,000, sinus tachycardia in 100s. Blood cultures collected, additional cultures and antibiotic as above. Status: Acute (4) KAREN (acute kidney injury): Secondary to sepsis. Creatinine 1.2, previously creatinine 1. Will request urine studies, kidney ultrasound. Status: Acute (5) Elevated d-dimer: No PE on CTA. Will assess with lower extremity duplex. COVID PCR. Status: Acute Plan GERD, history of hemorrhagic ascites Pulmonary nodules Spondylolisthesis Chronic migraine Attestations Medical Necessity Statement*: Admission of over 2 midnights is anticipated versus management of pneumonia in a lady with underlying COPD, history of lung resection, with possible sepsis, KAREN. 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
--- NOTE | 2021-11-26 13:45 | USR_ITS ---
PROCEDURE INFORMATION: Exam: US Duplex Lower Extremity Veins, Bilateral Exam date and time: 11/26/2021 3:51 PM Age: 70 years old Clinical indication: Other: Elevated d dimer; Additional info: Elev ddimr, assess for dvt TECHNIQUE: Imaging protocol: Real-time Duplex ultrasound of the bilateral extremities with 2-D reeves scale, color Doppler flow and spectral waveform analysis with image documentation. Complete exam focused on the bilateral lower extremity veins. COMPARISON: No relevant prior studies available. FINDINGS: Right deep veins: Unremarkable. The common femoral, femoral, proximal profunda femoral, popliteal, posterior tibial and peroneal veins are patent without thrombus. Normal Doppler waveforms. Normal compressibility and/or augmentation response. Right superficial veins: Saphenofemoral junction is patent without thrombus. Left deep veins: Unremarkable. The common femoral, femoral, proximal profunda femoral, popliteal, posterior tibial and peroneal veins are patent without thrombus. Normal Doppler waveforms. Normal compressibility and/or augmentation response. Left superficial veins: Saphenofemoral junction is patent without thrombus. Soft tissues: Unremarkable. US/CV venous duplex [facility] [id number] IMPRESSION: No sonographic evidence of deep vein thrombosis.
--- NOTE | 2021-11-26 13:45 | USR_ITS ---
PROCEDURE INFORMATION: Exam: US Retroperitoneal; Complete; Kidneys and Bladder Exam date and time: 11/26/2021 4:13 PM Age: 70 years old Clinical indication: Other: Abnormal lab values; Patient HX: Known stage 3 renal disease; Additional info: Willi TECHNIQUE: Imaging protocol: Real-time ultrasound of the retroperitoneum with image documentation. Complete exam focused on the kidneys and bladder. COMPARISON: [place] [id number] 11/26/2021 3:51 PM FINDINGS: Right kidney: 8.4 cm in length. No stones. No hydronephrosis. Left kidney: 10.7 cm in length. No stones. No hydronephrosis. Urinary bladder: Unremarkable. US/US renal BI with PV bladder IMPRESSION: No acute pathology.
--- NOTE | 2021-11-26 14:31 | ECG_ITS ---
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 Measurements Intervals [place] Rate: 84 P: 57 NV: 155 QRS: 80 QRSD: 88 T: 77 QT: 384 QTc: 455 Interpretive Statements SINUS RHYTHM Compared to ECG 11/26/2021 12:15:16 T-wave abnormality no longer present Electronically Signed On 11-27-2021 17:43:58 CDT by Gricelda Winters M.D. [id number]
[2021-11-26 15:27] LABS: Troponin 5 6HR 9.27 ng/L (0-10)
[2021-11-26 15:40] LABS: Adenovirus Not Detected (NOT DETECT); Chlamydia Pneumoniae Not Detected (NOT DETECT); Coronavirus 229E,HKU1,NL63,OC4 Not Detected (NOT DETECT); Human Metapneumovirus Not Detected (NOT DETECT); Human Rhinovirus/Enterovirus Not Detected (NOT DETECT); Influenza A Not Detected (NOT DETECT); Influenza A H1 Not Detected (NOT DETECT); Influenza A H1-2009 Not Detected (NOT DETECT); Influenza A H3 Not Detected (NOT DETECT); Influenza B Not Detected (NOT DETECT); Mycoplasma Pneumoniae Not Detected (NOT DETECT); Parainfluenza Virus Type 1 Not Detected (NOT DETECT); Parainfluenza Virus Type 2 Not Detected (NOT DETECT); Parainfluenza Virus Type 3 Not Detected (NOT DETECT); Parainfluenza Virus Type 4 Not Detected (NOT DETECT); Respiratory Syncytial Virus A Not Detected (NOT DETECT); Respiratory Syncytial Virus B Not Detected (NOT DETECT); SARS-COV-2 Not Detected (NOT DETECT)
[2021-11-26] MEDS: heparin 5,000 unit/mL INJ 1 mL 5000 UNIT SUBCUT ×2 (15:52→21:30)
[2021-11-26 16:08] LABS: Troponin 5 6HR Delta -1.73 ng/L (0-12)
[2021-11-26 16:17] LABS: Urine Creatinine 85 mg/dL (28-217); Urine Random Sodium 35 mmol/L
[2021-11-26] MEDS: topiramate 25 mg Tablet 50 MG PO (20:24)
[2021-11-26] MEDS: nortriptyline 10 mg Capsule PO (20:24)
[2021-11-26] MEDS: trazodone 50 mg Tablet PO (20:25)
[2021-11-27] VITALS (11 sets, daily range): BP systolic 91–118; BP diastolic 53–69; PULSE 66–98; RESP 16–18; TEMP 36.6–37; O2SAT 90–99
[2021-11-27 04:49] LABS: Basophils % 0.1 %; Hematocrit 29.6 % (37.0-47.0); Hemoglobin 8.7 g/dL (11.5-15.3); Lymphocytes # 0.8 10^3/uL (0.8-4.8); Lymphocytes % 4.9 %; Mean Corpuscular HGB Conc 29.4 g/dL (30.0-36.0); Mean Corpuscular Hemoglobin 25.6 pg (28.0-34.0); Mean Corpuscular Volume 87.1 fl (81-99); Mean Platelet Volume 9.6 fL (7.4-10.4); Monocytes # 0.7 10^3/uL (0.2-0.9); Monocytes % 3.8 %; Neutrophils # 15.37 10^3/uL (1.8-7.7); Neutrophils % 90.6 %; Nucleated Red Blood Cells % 0 %; Platelet Count 314 10^3/cmm (130-400); Red Cell Distribution Width 14.7 % (12.1-15.1)
--- NOTE | 2021-11-27 04:57 | PC.NURSE ---
Pt notified another RN stating I know it is cutting off the circulation. That nurse told me it wasn't but I know it is . DANA Mcdonald assessed pt right ankle and confirmed findings of toes pink and warm with good cap refill. Tamara re-educated pt and assisted with repositioning of leg.
[2021-11-27 05:09] LABS: Alanine Aminotransferase 25 U/L (0-33); Albumin Level 3.6 g/dL (3.5-5.2); Alkaline Phosphatase 82 IU/L (35-105); Anion Gap 13.3 (5-19); Aspartate Amino Transferase 30 U/L (0-32); Blood Urea Nitrogen 14 mg/dL (8-23); Calcium 9.1 mg/dL (8.5-10.5); Carbon Dioxide 24 mmol/L (22-29); Chloride 108 mmol/L (98-107); Globulin 2.6 g/dL (1.3-4.6); Glomerular Filtration Rate 55.1 mL/min (90-130); Glucose 152 mg/dL (65-115); Osmolality Calculated 295 mOsm/kg (285-295); Potassium 4.3 mmol/L (3.5-5.1); Sodium 141 mmol/L (136-145); Total Bilirubin 0.2 mg/dL (0.15-1.2); Total Protein 6.2 g/dL (6.6-8.7)
[2021-11-27] MEDS: heparin 5,000 unit/mL INJ 1 mL 5000 UNIT SUBCUT (05:28)
[2021-11-27] MEDS: ipratropium-albuterol 3 mL Neb INHALATION ×4 (07:37→19:18)
[2021-11-27] MEDS: pantoprazole DR 40 mg Tablet PO (08:00)
[2021-11-27] MEDS: magnesium oxide 400 mg tablet 200 MG PO (08:00)
[2021-11-27] MEDS: cefepime 2,000 MG in sodium chloride 0.9% (plus) 50 ML 100 MG IV ×2 (09:25→21:31)
[2021-11-27 09:56] LABS: Procalcitonin 0.85 ng/mL (0-0.5)
[2021-11-27 10:07] LABS: C Reactive Protein 68.7 mg/L (0.0-4.9); Ferritin 13 ng/mL (15-150); Iron 15 ug/dL (37-145); Percent Saturation 4.5 % (20-50); Total Iron Binding Capacity 328 mcg/dl; Unsaturated Iron Binding 313 ug/dL (112-347)
[2021-11-27] MEDS: acetaminophen 325 mg Tablet 650 MG PO (10:15)
--- NOTE | 2021-11-27 10:40 | PC.CHAP ---
Pastoral Care Encounter/Spiritual Assessment Type of Contact [] Declined store specialist visit [] Patient/Family/Request visit [] Outpatient visit [] Follow-up visit [] Physician referral [] Code/Alert [x] Routine visit [] Staff referral [] Actively dying [] Patient sleeping [] Family support [] [] Out of room [] Palliative care [] [] Receiving care in room [] Pre-surgical visit [] Trauma [] Long length of stay [] ICU visit [] Other: Relational/Emotional Strength [x] Patient feels connected with others/family/visitors/staff [] Distress [] Loneliness/isolation [] Abandonment Spirituality of Patient [x] Person of Kathryn [] Attends Confucianist of their Kathryn [x] Believes in Prayer [] Reads Bible or Alevism materials [] There are Spiritual issues to be addressed Supervisor Sewing Department Interventions []x Prayer [x] Active listening [x] Non-anxious presence [x] Spiritual/emotional support [] Crisis/trauma care [] Spiritual counseling [] Bereavement support [] Provided bereavement packet [] Provided Bible/devotional materials [] Provided toy/stuffed animal, coloring book to patient or family member [] Provided Communion [] Anointing/[place] [] Salvation [x] Completed spiritual assessment [] Other: Impact on Illness or Injury [] Angry [] Fearful [] Anxious [] Often cries [] Exhaustion [] Unable to work [] Unable to attend scientologist [] Unable to walk/stand [] Unable to read [] Unable to drive [] Unable to eat/drink [] Unable to sleep [] Unable to be with family [] Patient intubated [] Other: Summary Time spent with patient 10 min
--- NOTE | 2021-11-27 12:12 | USCV_ITS ---
Ross Sunitha Age: 70 Gender: F : 1950 Exam Date: 11/27/2021 14:39 Ordering Phys: John Ram MD Technologist: Julianna Anderson Exam Location: [facility] [place] Indication: Syncope BP: / HR: 72 Rhythm: Sinus Technical Quality: Adequate MEASUREMENTS (Male / Female) Normal Values 2D ECHO LV Diastolic Diameter PLAX 4.8 cm 4.2 - 5.9 / 3.9 - 5.3 cm LV Systolic Diameter PLAX 3.4 cm LV Chamber Size 3.8 cm IVS Diastolic Thickness 1.1 cm 0.6 - 1.0 / 0.6 - 0.9 cm IVS Systolic Thickness 1.8 cm LVPW Diastolic Thickness 1.3 cm 0.6 - 1.0 / 0.6 - 0.9 cm LVPW Systolic Thickness 1.9 cm RV Chamber Size 3.4 cm LVOT Diameter 2.1 cm LV Ejection Fraction 2D Teich 56.5 % LV Ejection Fraction MOD 2C 62.4 % LV Ejection Fraction 2C AL 63.5 % LA Diameter 3.6 cm LA Width 2.0 cm LA Height 3.8 cm RA Width 3.0 cm RA Height 4.4 cm Aorta at Sinotubular Diameter 2.8 cm IVC Diameter 2.0 cm M-MODE Aortic Annulus Diameter 4.0 cm LA Ao Ratio MM 1.0 MV E Point Septal Separation 0.2 cm DOPPLER AV Peak Velocity 146.0 cm/s LVOT Peak Velocity 98.0 cm/s AV Area Cont Eq vti 2.6 cm squared AV Area Cont Eq pk 2.2 cm squared MV Area PHT 3.1 cm squared Mitral E to A Ratio 1.9 MV E' Velocity 62.0 cm/s Mitral E to MV E' Ratio 7.3 Mitral E to LV E' Lateral Ratio 6.6 Mitral E to LV E' Septal Ratio 8.3 TR Peak Velocity 303.9 cm/s TR Peak Gradient 36.9 mmHg TR Mean Velocity 224.3 cm/s TR Mean Gradient 22.6 mmHg TR Velocity Time Integral 81.2 cm TV Peak E Velocity 66.0 cm/s Right Atrial Pressure 3.0 mmHg Pulmonary Artery Systolic Pressu 39.9 mmHg PV Peak Velocity 81.0 cm/s RV Acceleration Time 0.1 s RV Ejection Time 0.4 s RV AcT/ET 0.3 FINDINGS Left Ventricle Normal left ventricular size. LV systolic function is normal with EF of 55-60%. No regional wall motion abnormalities. Right Ventricle The right ventricle is normal in size and function. Right Atrium The right atrium is normal in size. Left Atrium The left atrium is normal in size. Mitral Valve Structurally normal mitral valve without significant stenosis or prolapse. There is trace mitral regurgitation. Aortic Valve Structurally normal aortic valve without significant sclerosis or stenosis. There is no aortic regurgitation. Tricuspid Valve Structurally normal tricuspid valve without significant stenosis. Trace tricuspid regurgitation. Insufficient TR jet to calculate RVSP Pulmonic Valve Structurally normal pulmonic valve without significant stenosis. There is mild pulmonic regurgitation. Pericardium Small pericardial effusion Aorta Normal ascending aorta dimension. IVC CONCLUSIONS LV systolic function is normal with EF of 55 to 60%. Trace mitral regurgitation Small pericardial effusion. Trace tricuspid regurgitation. Mild pulmonic regurgitation. Compared to prior echocardiogram from 01/06/2020, patient has a small pericardial effusion Damien Goldberg MD (Electronically Signed) Final Date: 27 Nov 2021 22:17 S
--- NOTE | 2021-11-27 12:12 | USCV_ITS ---
Sunitha Hawkins Age: 70 Gender: F : 1950 Exam Date: 11/27/2021 15:14 Ordering Phys: John Ram MD Technologist: Julianna Anderson Exam Location: [facility] [place] Indication: Syncope episode Risk Factors: Unknown Previous Vascular Surgery: None Right Brachial BP: / Left Brachial BP: / Right Left Velocity (cm/s) Spectral Plaque Velocity (cm/s) Spectral Plaque Syst/Diast Broadening Syst/Diast Broadening 102.50/18.70 Prox CCA 15.80 / 65.70 71.70/ 27.60 Mid CCA 72.30 / 18.40 66.20/ 18.70 Distal CCA 67.00 / 14.50 87.10/ 28.70 Prox ICA 82.80 / 32.90 87.10/ 28.70 Mid ICA 97.30 / 19.70 188.90/46.80 Distal ICA 96.00 / 3.90 102.50 ECA 98.60 2.64 ICA/CCA 1.35 Antegrade Vertebral Antegrade 41.90/ 16.20 cm/s 57.80/ 18.40 cm/s Tri Subclavian Bi 199.7 142.0 0 0 CONCLUSIONS Right ICA stenosis <50%. Mild atheromatous plaque right carotid bulb/ICA. Left ICA stenosis <50%. Mild atheromatous plaque left carotid bulb/ICA. Normal antegrade Doppler flow noted in the right vertebral artery. Normal antegrade Doppler flow noted in the left vertebral artery. Reid Simeon MD (Electronically Signed) Final Date: 27 Nov 2021 16:26 S
--- NOTE | 2021-11-27 13:53 | P.PN_ITS ---
Subjective Subjective: Patient was seen this morning, at bedside, she tells me that she feels a lot better on 2 L, she tells me that she has had 2 syncopal episodes in the last few weeks, she tells me that one of the reason that brought her in was a syncopal episode, she was just sitting at a tractor pole, when she just passed out, she does have a history of sleep apnea Vitals/I&O/Wt Last Vital Signs Temp 98.6 F 11/27/21 11:11 Pulse 98 11/27/21 11:26 Resp 16 11/27/21 11:21 BP 91/57 11/27/21 11:11 Pulse Ox 99 11/27/21 11:21 11/26/21 11/27/21 11/27/21 22:59 06:59 14:59 Intake Total 1740 / 1740 50 / 50 Balance 1740 / 1740 50 / 50 Weight last 48 hrs Weight 70.307 kg Weight 70.307 kg Physical Exam Const: COMMON NORMALS: no acute distress and patient oriented x3 Resp: COMMON NORMALS: normal respiratory effort, No retractions, No use of accessory muscles and clear to auscultation bilaterally AUSCULTATION: clear to auscultation bilaterally Cardio: COMMON NORMALS: regular rate, regular rhythm, S1 normal heart sound present and S2 normal heart sound present RATE: regular rate RHYTHM: regular rhythm HEART SOUNDS: S1 normal heart sound present and S2 normal heart sound present GI: COMMON NORMALS: Normal to inspection, nondistended, normoactive bowel sounds present, Soft to palpation and non-tender PALPATION: Yes Soft to palpation Extremity: COMMON NORMALS: no pedal edema Neuro: COMMON NORMALS: patient oriented x3 Psych: COMMON NORMALS: mental status grossly normal Data : 11/27/21 04:15 11/27/21 04:15 Micro: Microbiology 11/26/21 10:28 Blood Culture - Preliminary Blood NEGATIVE TO DATE 11/26/21 19:10 MRSA Culture - Final Nose 11/26/21 09:30 Blood Culture - Preliminary Blood NEGATIVE TO DATE 11/26/21 15:23 Legionella Urinary Antigen - Final Urine,Voided 11/26/21 15:23 Bacterial Antigens - Final Urine,Voided A&P Assessment and plan (1) CAP (community acquired pneumonia): Community-acquired pneumonia, with worse than usual hypoxia requiring 4 L of oxygen by nasal cannula, now on 2 L Possible sepsis with leukocytosis, sinus tachycardia, CT angiogram of the chest showing right lower lobe infiltrates Rapid COVID-negative. PCR requested. Blood cultures collected. Received Levaquin. Broaden antibiotic coverage to cefepime 2 g every 12 hours. Collect sputum cultures, urine bacterial antigens. MRSA PCR. With underlying abnormal pulmonary function with COPD, history of lung resection due to MAC NT proBNP is not elevated. Denies any symptoms of aspiration. History of severe/recurrent GERD with hemorrhage gastritis, but denies any reflux symptoms. Continues on PPI. Blood pressures are soft, start normal saline at 75 cc an hour Status: Acute (2) Hypoxia: As above Status: Acute (3) Sepsis: Possible sepsis with endorgan injury, with KAREN creatinine 1.0, secondary to pulmonary source, with leukocytosis, sinus tachycardia in 100s. Blood cultures collected, additional cultures and antibiotic as above. Status: Acute (4) KAREN (acute kidney injury): Secondary to sepsis. Creatinine 1.2, previously creatinine 1. Will request urine studies, kidney ultrasound. Status: Acute (5) Elevated d-dimer: No PE on CTA. Lower extremity duplex negative for DVT. COVID PCR. 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
[2021-11-27 14:58] LABS: Basophils % 0.1 %; Hematocrit 28.6 % (37.0-47.0); Hemoglobin 8.6 g/dL (11.5-15.3); Lymphocytes % 5.6 %; Mean Corpuscular HGB Conc 30.1 g/dL (30.0-36.0); Mean Corpuscular Hemoglobin 26.1 pg (28.0-34.0); Mean Corpuscular Volume 86.9 fl (81-99); Mean Platelet Volume 9.5 fL (7.4-10.4); Monocytes # 1.4 10^3/uL (0.2-0.9); Monocytes % 7.7 %; Neutrophils # 15.61 10^3/uL (1.8-7.7); Nucleated Red Blood Cells % 0 %; Platelet Count 328 10^3/cmm (130-400); Red Blood Count 3.29 10^6/uL (4.1-5.3); Red Cell Distribution Width 15.1 % (12.1-15.1); White Blood Count 18.1 10^3/uL (4.0-10.0)
[2021-11-27] MEDS: sodium chloride 0.9% 1,000 ML 75 ML IV (15:07)
[2021-11-27] MEDS: pantoprazole 40 mg SDV IVP (15:10)
[2021-11-27 15:50] LABS: ABG PCO2 37.5 mmHg (35-45); Arterial Blood Gas Hematocrit 26.3 % (37-47); Base Excess ABG -1.7 mmol/L (-2.0-2.0); Blood Gas Sample Site Brachial, right; Blood Gas Sample Type Arterial; Oxygen Device NC; PO2 ABG 72.8 mmHg (80.0-100.0)
[2021-11-27] MEDS: sucralfate 1 gm Tablet PO ×2 (18:55→20:53)
[2021-11-27] MEDS: HYDROcodone-acetaminophen 5-325 mg Tablet 1 TAB PO (19:31)
[2021-11-27] MEDS: trazodone 50 mg Tablet PO (20:53)
[2021-11-27] MEDS: topiramate 25 mg Tablet 50 MG PO (20:53)
[2021-11-27] MEDS: nortriptyline 10 mg Capsule PO (20:53)
[2021-11-28] VITALS (10 sets, daily range): BP systolic 119–137; BP diastolic 65–78; PULSE 71–89; RESP 18; TEMP 36.8–37; O2SAT 88–97
[2021-11-28] MEDS: pantoprazole 40 mg SDV IVP (01:33)
[2021-11-28] MEDS: sodium chloride 0.9% 1,000 ML 75 ML IV (04:11)
[2021-11-28 05:19] LABS: Basophils % 0.2 %; Eosinophils % 0.3 %; Hematocrit 28.8 % (37.0-47.0); Hemoglobin 8.3 g/dL (11.5-15.3); Lymphocytes # 1.3 10^3/uL (0.8-4.8); Mean Corpuscular HGB Conc 28.8 g/dL (30.0-36.0); Mean Corpuscular Hemoglobin 25.3 pg (28.0-34.0); Mean Corpuscular Volume 87.8 fl (81-99); Mean Platelet Volume 9.5 fL (7.4-10.4); Monocytes # 0.7 10^3/uL (0.2-0.9); Neutrophils # 8.38 10^3/uL (1.8-7.7); Neutrophils % 80.1 %; Nucleated Red Blood Cells % 0 %; Platelet Count 317 10^3/cmm (130-400); Red Blood Count 3.28 10^6/uL (4.1-5.3); Red Cell Distribution Width 15.5 % (12.1-15.1); White Blood Count 10.5 10^3/uL (4.0-10.0)
[2021-11-28 05:50] LABS: NT Pro B Type Natriuretic Pept 1247 pg/mL (0-125); Procalcitonin 0.44 ng/mL (0-0.5)
[2021-11-28 06:01] LABS: C Reactive Protein 34.5 mg/L (0.0-4.9); Phosphorus 2.6 mg/dL (2.5-4.5)
[2021-11-28] MEDS: sucralfate 1 gm Tablet PO ×2 (06:05→10:58)
[2021-11-28 06:07] LABS: Alanine Aminotransferase 21 U/L (0-33); Albumin Level 3.7 g/dL (3.5-5.2); Alkaline Phosphatase 71 IU/L (35-105); Anion Gap 14.3 (5-19); Aspartate Amino Transferase 18 U/L (0-32); Blood Urea Nitrogen 14 mg/dL (8-23); Calcium 7.8 mg/dL (8.5-10.5); Carbon Dioxide 23 mmol/L (22-29); Chloride 110 mmol/L (98-107); Globulin 1.6 g/dL (1.3-4.6); Glomerular Filtration Rate 62.3 mL/min (90-130); Glucose 102 mg/dL (65-115); Osmolality Calculated 297 mOsm/kg (285-295); Potassium 4.3 mmol/L (3.5-5.1); Sodium 143 mmol/L (136-145); Total Bilirubin 0.2 mg/dL (0.15-1.2); Total Protein 5.3 g/dL (6.6-8.7)
[2021-11-28] MEDS: ipratropium-albuterol 3 mL Neb INHALATION ×2 (07:55→12:49)
[2021-11-28] MEDS: magnesium oxide 400 mg tablet 200 MG PO (09:34)
[2021-11-28] MEDS: cefepime 2,000 MG in sodium chloride 0.9% (plus) 50 ML 100 MG IV (09:35)
--- NOTE | 2021-11-28 11:45 | PC.NURSE ---
THIS NURSE CALLED INHALER INTO [facility].
--- NOTE | 2021-11-28 12:14 | PC.NURSE ---
The rest of the patient's prescriptions were called into [facility].
--- NOTE | 2021-11-28 12:30 | PM.DCS ---
Discharge Providers Date of Admission: 11/26/21 11:14 Date of Discharge: November 28, 2021 Attending Provider at Admission: Sanjeev Ferguson Attending Provider at Discharge: John Ram MD Primary Care Provider: Nilson Bradshaw MD Diagnoses at Discharge Discharge Diagnosis (1) CAP (community acquired pneumonia): Status: Acute (2) Hypoxia: Status: Acute (3) Sepsis: Status: Acute (4) KAREN (acute kidney injury): Status: Acute (5) Elevated d-dimer: Status: Acute (6) Syncope: Status: Acute Reason for Visit Reason for Visit: low oxygen/rattle in chest/shakiness/nausea Hospital Course Hospital Course this is a 70-year-old lady with 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 Patient was admitted to [facility] for community-acquired pneumonia, received broad-spectrum antibiotic therapy, oxygen therapy, CT angiogram showed right lower lobe infiltrates, patient clinically improved, down to 2 L. Discharged on 5 remaining days of cefdinir, oxygen therapy, inhaler therapy, follow-up with pulmonary as outpatient Patient also had complaints of lightheadedness and dizziness during her hospitalization, history of syncope, cardiac echocardiogram Right ICA stenosis <50%. Mild atheromatous plaque right carotid ?bulb/ICA. ?Left ICA stenosis <50%. Mild atheromatous plaque left carotid ?bulb/ICA. ?Normal antegrade Doppler flow noted in the right vertebral ?artery. ?Normal antegrade Doppler flow noted in the left vertebral carotid artery ultrasound Cardiac echocardiogram ?LV systolic function is normal with EF of 55 to 60%. ?Trace mitral regurgitation ?Small pericardial effusion. ?Trace tricuspid regurgitation. ?Mild pulmonic regurgitation. ?Compared to prior echocardiogram from 01/06/2020, patient has a ?small pericardial effusion -Patient's blood work revealed anemia, as low as 8.3, has a history of iron deficiency anemia, receives Injectafer as outpatient -She has had EGDs and colonoscopies she tells me, and they found a micro bleeding, she had one roughly a year ago -I will have her follow-up with general surgery oncology as outpatient -Discharge her on Protonix and Carafate -If she were to have bloody or black stools go to emergency room -We do not carry Injectafer here in the hospital, she has a allergy to Venofer here, will have her get Injectafer as outpatient Physical Exam Const: COMMON NORMALS: no acute distress and patient oriented x3 Resp: COMMON NORMALS: normal respiratory effort, No retractions, No use of accessory muscles and clear to auscultation bilaterally AUSCULTATION: clear to auscultation bilaterally Cardio: COMMON NORMALS: regular rate, regular rhythm, S1 normal heart sound present and S2 normal heart sound present RATE: regular rate RHYTHM: regular rhythm HEART SOUNDS: S1 normal heart sound present and S2 normal heart sound present GI: COMMON NORMALS: Normal to inspection, nondistended, normoactive bowel sounds present, Soft to palpation and non-tender PALPATION: Yes Soft to palpation Extremity: COMMON NORMALS: no pedal edema Neuro: COMMON NORMALS: patient oriented x3 Psych: COMMON NORMALS: mental status grossly normal Discharge Data Studies Completed and Pending Completed Studies During Hospitalization Category Date Time Status CT angio chest PE protcl [id number] Stat Cat Scan 11/26/21 09:36 Completed XR chest 1V portable [id number] Stat Exams 11/26/21 08:30 Completed CV carotid duplex BI* [id number] Routine Ultrasound 11/27/21 12:12 [place] [id number] Routine Ultrasound 11/26/21 13:45 Completed CV. echo complete* [id number] Routine Ultrasound 11/27/21 12:12 Completed US renal BI* [id number] Routine Ultrasound 11/26/21 13:45 Completed Pending at discharge Category Date Time Status Blood Culture Stat Lab 11/26/21 10:28 Results C Reactive Protein AM LABS Lab 11/29/21 04:00 Ordered C Reactive Protein AM LABS Lab 11/30/21 04:00 Ordered Complete Blood Count w/Auto AM LABS Lab 11/29/21 04:00 Ordered Comprehensive Metabolic Panel AM LABS Lab 11/29/21 04:00 Ordered Magnesium AM LABS Lab 11/29/21 04:00 Ordered Magnesium AM LABS Lab 11/30/21 04:00 Ordered NT Pro B Type Natriuretic Pept QAM Lab 11/29/21 06:00 Ordered NT Pro B Type Natriuretic Pept QAM Lab 11/30/21 06:00 Ordered Occult Blood Stool [Immunochemical Fecal OCB] Routine Lab 11/27/21 09:05 Uncollected Phosphorus AM LABS Lab 11/29/21 04:00 Ordered Phosphorus AM LABS Lab 11/30/21 04:00 Ordered Procalcitonin AM LABS Lab 11/29/21 04:00 Ordered Procalcitonin AM LABS Lab 11/30/21 04:00 Ordered Sputum Culture and Gram Stain Routine Lab 11/26/21 13:40 Uncollected Radiology Impressions Chest X-Ray 11/26/21 08:30 IMPRESSION: Interval development of airspace opacities in the right lung concerning for pneumonia. Chest CTA 11/26/21 09:36 IMPRESSION: 1. No pulmonary embolism identified. No signs of right heart strain. 2. Airspace opacities in the lungs concerning for pneumonia most predominant in the right lower lobe. 3. Mild enlargement of the main pulmonary artery which may be seen in patients with pulmonary hypertension. 4. Emphysematous disease. Renal Ultrasound 11/26/21 13:45 IMPRESSION: No acute pathology. Venous Duplex 11/26/21 13:45 IMPRESSION: No sonographic evidence of deep vein thrombosis. Laboratory Results WBC 10.5 10^3/uL (4.0-10.0) H 11/28/21 04:45 RBC 3.28 10^6/uL (4.1-5.3) L 11/28/21 04:45 Hgb 8.3 g/dL (11.5-15.3) L 11/28/21 04:45 Hct 28.8 % (37.0-47.0) L 11/28/21 04:45 MCV 87.8 fl (81-99) 11/28/21 04:45 MCH 25.3 pg (28.0-34.0) L 11/28/21 04:45 MCHC 28.8 g/dL (30.0-36.0) L 11/28/21 04:45 RDW 15.5 % (12.1-15.1) H 11/28/21 04:45 Plt Count 317 10^3/cmm (130-400) 11/28/21 04:45 MPV 9.5 fL (7.4-10.4) 11/28/21 04:45 Neut % (Auto) 80.1 % 11/28/21 04:45 Lymph % (Auto) 12.0 % 11/28/21 04:45 Jones % (Auto) 7.0 % 11/28/21 04:45 Eos % (Auto) 0.3 % 11/28/21 04:45 Baso % (Auto) 0.2 % 11/28/21 04:45 Neut # (Auto) 8.38 10^3/uL (1.8-7.7) H 11/28/21 04:45 Lymph # (Auto) 1.3 10^3/uL (0.8-4.8) 11/28/21 04:45 Jones # (Auto) 0.7 10^3/uL (0.2-0.9) 11/28/21 04:45 Eos # (Auto) 0.0 10^3/uL (0.0-0.8) 11/28/21 04:45 Baso # (Auto) 0.0 10^3/uL (0.0-0.1) 11/28/21 04:45 Nucleated RBC % (auto) 0 % 11/28/21 04:45 Nucleated RBCs # 0.0 /100WBC 11/28/21 04:45 D-Dimer 1.13 ug/mIFEU (0-0.59) H 11/26/21 09:03 Specimen Type Arterial 11/27/21 15:45 Sample Site Brachial, right 11/27/21 15:45 ABG pH 7.40 (7.35-7.45) 11/27/21 15:45 ABG pCO2 37.5 mmHg (35-45) 11/27/21 15:45 ABG pO2 72.8 mmHg (80.0-100.0) L 11/27/21 15:45 ABG HCO3 23.0 mmol/L (22-26) 11/27/21 15:45 ABG O2 Saturation 95.8 11/26/21 09:01 ABG Base Excess -1.7 mmol/L (-2.0-2.0) 11/27/21 15:45 Bhaskar Test N/a 11/27/21 15:45 A-a O2 Gradient 16.6 mmHg (5-10) H 11/26/21 09:01 Hematocrit 26.3 % (37-47) L 11/27/21 15:45 Hgb O2 Saturation 94.6 % (95-100) L 11/26/21 09:01 Carboxyhemoglobin 0.9 %THgb (0.4-20.1) 11/26/21 09:01 Methemoglobin 0.5 % (0.4-1.5) 11/26/21 09:01 Total Hemoglobin 10.2 g/dL (12-16) L 11/26/21 09:01 Sodium 144.0 mmol/L (131-143) H 11/26/21 09:01 Potassium 3.7 mmol/L (3.5-5.0) 11/26/21 09:01 Glucose 156.0 mg/dL (70-115) H 11/26/21 09:01 Ionized Calcium 1.2 mmol/L (1.1-1.4) 11/26/21 09:01 O2 Delivery Device Nc 11/27/21 15:45 O2 Liters/Min 1.0 % 11/27/21 15:45 FiO2 38.0 % 11/26/21 09:01 Optical Store Manager ID Hinja 11/27/21 15:45 Sodium 143 mmol/L (136-145) 11/28/21 04:45 Potassium 4.3 mmol/L (3.5-5.1) 11/28/21 04:45 Chloride 110 mmol/L (98-107) H 11/28/21 04:45 Carbon Dioxide 23 mmol/L (22-29) 11/28/21 04:45 Anion Gap 14.3 (5-19) 11/28/21 04:45 BUN 14 mg/dL (8-23) 11/28/21 04:45 Creatinine 0.9 mg/dL (0.5-0.9) 11/28/21 04:45 GFR Calculation 62.3 mL/min (90-130) L 11/28/21 04:45 Glucose 102 mg/dL (65-115) 11/28/21 04:45 Calculated Osmolality 297 mOsm/kg (285-295) H 11/28/21 04:45 Lactate 1.6 mmol/L (0.5-2.2) 11/26/21 09:30 Calcium 7.8 mg/dL (8.5-10.5) L 11/28/21 04:45 Phosphorus 2.6 mg/dL (2.5-4.5) 11/28/21 04:45 Magnesium 2.0 mg/dL (1.7-2.3) 11/28/21 04:45 Iron 15 ug/dL (37-145) L 11/27/21 04:15 TIBC 328 mcg/dl 11/27/21 04:15 % Saturation 4.5 % (20-50) L 11/27/21 04:15 Unsat Iron Binding 313 ug/dL (112-347) 11/27/21 04:15 Ferritin 13 ng/mL (15-150) L 11/27/21 04:15 Total Bilirubin 0.2 mg/dL (0.15-1.2) 11/28/21 04:45 AST 18 U/L (0-32) 11/28/21 04:45 ALT 21 U/L (0-33) 11/28/21 04:45 Alkaline Phosphatase 71 IU/L (35-105) 11/28/21 04:45 Troponin T Baseline 11 ng/L (0-10) H 11/26/21 09:03 Troponin T 120 Minute 9.28 ng/L (0-10) 11/26/21 11:30 Delta Troponin T -1.72 ABS# (0-10) L 11/26/21 11:30 Troponin T Hi Sens 6Hr 9.27 ng/L (0-10) 11/26/21 14:57 Troponin T Hi Sens 6Hr Delta -1.73 ng/L (0-12) L 11/26/21 14:57 C-Reactive Protein 34.5 mg/L (0.0-4.9) H 11/28/21 04:45 NT-Pro-B Natriuret Pep 1247 pg/mL (0-125) H 11/28/21 04:45 Total Protein 5.3 g/dL (6.6-8.7) L 11/28/21 04:45 Albumin 3.7 g/dL (3.5-5.2) 11/28/21 04:45 Globulin 1.6 g/dL (1.3-4.6) 11/28/21 04:45 Procalcitonin 0.44 ng/mL (0-0.5) 11/28/21 04:45 Ur Random Sodium 35 mmol/L 11/26/21 15:23 Urine Creatinine 85 mg/dL (28-217) 11/26/21 15:23 Coronavirus 229E (PCR) Not detected (NOT DETECT) 11/26/21 11:30 SARS-CoV-2 (PCR) Not detected (NOT DETECT) 11/26/21 11:30 SARS-CoV-2 Ag (Rapid) Negative (Negative) 11/26/21 09:30 Vitals Last Vital Signs Temp 98.6 F 11/28/21 11:48 Pulse 71 11/28/21 11:48 Resp 18 11/28/21 11:48 BP 137/69 11/28/21 11:48 Pulse Ox 97 11/28/21 11:48 Discharge Plan Discharge Patient Disposition: Home Condition: Stable Prescriptions: New cefdinir 300 mg capsule 300 mg PO BID 7 Days Qty: 14 0RF albuterol sulfate 90 mcg/actuation HFA aerosol inhaler 1 inh inhalation Q6H PRN (Reason: shortness of breath or wheezing) Qty: 8.5 0RF Protonix 40 mg tablet,delayed release (DR/EC) 40 mg PO BID 30 Days Qty: 60 0RF Carafate 1 gram tablet 1 g PO BID 28 Days Qty: 56 0RF Continued magnesium 250 mg tablet 250 mg PO DAILY 0RF (DME) oxygen-air delivery systems Device See Rx Instructions .ROUTE .MEDSUPPLY Qty: 1 0RF Rx Instructions: As directed Anoro Ellipta 62.5-25 mcg/actuation blister with device 1 inh inhalation DAILY 0RF diltiazem HCl [Cardizem] 60 mg tablet 60 mg PO BID 0RF tdbublzuus-rmejyigbbhzhr-nlbo 50-325-40 mg tablet 1 tab PO Q6H PRN (Reason: pain) Qty: 30 0RF topiramate 50 mg tablet 50 mg PO BEDTIME Qty: 90 1RF trazodone 50 mg Tablet 50 mg PO BEDTIME 0RF nortriptyline 50 mg capsule 10 mg PO BEDTIME 0RF hydrocodone-acetaminophen 5-325 mg tablet 1 tab PO QID PRN (Reason: Pain) 0RF Discontinued omeprazole 40 mg capsule,delayed release(DR/EC) See Rx Instructions .ROUTE .COMPLEX Qty: 90 3RF Dose Instruction: TAKE 1 CAPSULE DAILY Rx Instructions: TAKE 1 CAPSULE DAILY Discharge Orders: Discharge Order (Routine); Ordered 11/28/21 Ordered By: John Leanna Referrals: [facility] [place] Drew Cody MD [Physician] - 1 week ([facility] will call you with an appointment. If you don't hear from them by , please call and ask to be seen by Dr. Cody next week.) Mirza Orr MD [Hospitalist] - 1 month ([facility] will call you to schedule an appointment to be seen for iron defeciency anemia) Nilson Bradshaw MD [Primary Care Provider] - 12/21/21 8:15 am Discharge Diet: Regular Discharge Activity: Resume usual activity Patient Instructions: Sucralfate (By mouth), Albuterol (By breathing), Cefdinir (By mouth), Pantoprazole (By mouth), Syncope (GEN), Opioid Safety Activity Restrictions/Additional Instructions: -follow up with primary care in one week -If you develop bloody or black stools please go to the emergency room -For your anemia please follow-up with primary care, Dr. Orr Discharge Attestations Time Spent in Discharge Care*: less than 30 min Quality Metrics Clinical Quality Measures [ No reported AMI, CVA or VTE this stay] Coding Level of Care Code Acute Chg FW DC note Diagnoses CAP (community acquired pneumonia) J18.9 Hypoxia R09.02 Sepsis A41.9 KAREN (acute kidney injury) N17.9 Elevated d-dimer R79.89 Syncope R55
--- NOTE | 2021-11-28 12:42 | PC.PHAR ---
placed injectafer on hold as patient is to be discharged today. Artem Rayo to follow up with Dr. Sommers to confirm dose can be given as an outpatient.
== END 2021-11-28 14:26 | disposition home or self-care (01) | DRG 871 ==
LOC: ER 08:57 → MEDSURG 12:03
PROVIDERS: Admitting Provider Internal Medicine; Emergency Provider Emergency Medicine; PCP Family Medicine; Visit Provider Family Medicine
DX: A41.9 Sepsis, unspecified organism (principal); J18.9 Pneumonia, unspecified organism; J44.0 Chronic obstructive pulmonary disease with (acute) lower respiratory infection; N17.9 Acute kidney failure, unspecified; Z90.2 Acquired absence of lung [part of]; Z99.81 Dependence on supplemental oxygen; F41.8 Other specified anxiety disorders; K21.9 Gastro-esophageal reflux disease without esophagitis; M43.16 Spondylolisthesis, lumbar region; Z87.891 Personal history of nicotine dependence; G43.711 Chronic migraine without aura, intractable, with status migrainosus; D50.9 Iron deficiency anemia, unspecified; G47.30 Sleep apnea, unspecified; R55 Syncope and collapse; Z79.891 Long term (current) use of opiate analgesic
CPT/HCPCS: 36415; 36600; 71045; 71046; 71275; 76770; 76857; 80051; 80053; 82330; 82570; 82728; 82803; 82805; 83540; 83550; 83605; 83735; 83880; 84100; 84145; 84300; 84484; 85025; 85378; 86140; 86403; 87040; 87426; 87449; 87635; 87641; 93005; 93306; 93880; 93970; 94640; 96365; 96372; 96375; 99214; 99285; C9113; J0692; J1644; J1956; J2405; J2930; J7030; Q9967

== ENCOUNTER → 2021-11-30 10:05 | Day surgery (SDC) | payer MEDICARE, OTHER, SELFPAY ==
[2021-11-30 10:00] VITALS: BP 121/73; PULSE 61; RESP 18; TEMP 36.6; O2SAT 98
[2021-11-30] MEDS: ferric carboxy (IVPB) 750 MG in sodium chloride 0.9% (100 ml) 100 ML 345 MG IV (10:30)
== END ==
PROVIDERS: PCP Family Medicine; Visit Provider Family Medicine
DX: D50.9 Iron deficiency anemia, unspecified (principal)
CPT/HCPCS: 96365; J1439

== ENCOUNTER → 2021-12-07 10:01 | Day surgery (SDC) | payer MEDICARE, OTHER, SELFPAY ==
[2021-12-07] MEDS: ferric carboxy (IVPB) 750 MG in sodium chloride 0.9% (100 ml) 100 ML 345 MG IV (10:21)
[2021-12-07 10:58] VITALS: BP 124/78; PULSE 86; RESP 18; TEMP 36.3; O2SAT 98; BMI 24.7
== END ==
PROVIDERS: PCP Family Medicine; Visit Provider Family Medicine
DX: D64.9 Anemia, unspecified (principal); K29.71 Gastritis, unspecified, with bleeding
CPT/HCPCS: 96365; 99203; J0330; J1100; J1439; J2250; J2405; J2704; J2710; J3010; J3490

== ENCOUNTER → 2021-12-12 09:31 | Outpatient (BNVA) | payer MEDICARE, OTHER, SELFPAY | PROVIDERS: PCP Family Medicine; Visit Provider Orthopaedic Surgery | DX: M43.16 Spondylolisthesis, lumbar region (principal) | CPT/HCPCS: 99214 ==

== ENCOUNTER 2021-12-14 11:59 | Outpatient (CLI) | payer MEDICARE, OTHER, SELFPAY ==
--- NOTE | 2021-12-14 12:09 | CTR_ITS ---
PROCEDURE INFORMATION: Exam: CT Abdomen And Pelvis Without And With Contrast Exam date and time: 12/14/2021 2:32 PM Age: 71 years old Clinical indication: Other: Weight loss, unintentional; Prior surgery; Surgery type: --pyloric stenosis, gb TECHNIQUE: Imaging protocol: Computed tomography of the abdomen and pelvis without and with contrast. The patient was administered oral contrast. Sagittal and coronal reformatted images were created and reviewed. Radiation optimization: All CT scans at this facility use at least one of these dose optimization techniques: automated exposure control; mA and/or kV adjustment per patient size (includes targeted exams where dose is matched to clinical indication); or iterative reconstruction. Contrast material: VISI 320; Contrast volume: 50 ml; Contrast route: INTRAVENOUS (IV); COMPARISON: US renal BI with PV bladder 11/26/2021 4:13 PM RADIATION DOSE METRICS: Total DLP (mGy-cm): 1889.58 FINDINGS: Lungs: Visualized lungs are clear. Pleural spaces: No pleural effusion. Heart: Visualized portions of the heart are mildly enlarged. Liver: The liver is unremarkable. Gallbladder and bile ducts: Patient has had a previous cholecystectomy. Dilatation of the biliary ducts, not unexpected in a patient who has had a prior cholecystectomy. Pancreas: The pancreas is unremarkable. No pancreatic ductal dilatation. Spleen: Irregular contour of the spleen. Amorphous calcification along the superior surface of the spleen, findings likely represent sequela of remote trauma. Adrenal glands: The right and left adrenal glands are unremarkable. Kidneys and ureters: Focal cortical scarring in the right and left kidneys. Nonobstructing stone in the right kidney measuring 4.0 mm. Simple cyst in the left kidney measuring 1.2 cm. The right and left ureters are unremarkable. Stomach and bowel: No acute abnormality in the stomach. No acute abnormality in the small bowel. Scattered diverticula in the sigmoid colon. No evidence for diverticulitis. Appendix: The appendix is visualized and is unremarkable. No findings to suggest acute appendicitis. Intraperitoneal space: No free intraperitoneal air. No ascites. No loculated fluid collections to suggest an abscess. Vasculature: Moderate atherosclerotic changes in the visualized arteries. Aneurysm of the infrarenal abdominal aorta, measuring up to 3.0 x 3.2 cm (series 5, image 32. The aneurysm does not involve the iliac arteries. No evidence for aneurysm rupture. No evidence for aortic dissection. Hepatic veins, portal veins, splenic vein, and SMV are patent. Lymph nodes: No lymphadenopathy. Urinary bladder: Unremarkable as visualized. Reproductive: Patient has had a previous hysterectomy. Calcification in the right ovary, possibly due to sequela from a prior involuting cyst. Dominant follicle in the right ovary measuring 1.3 x 1.7 cm (series 5, image 62). The left ovary is unremarkable. Bones/joints: Multilevel degenerative changes of varying severity in the visualized spine. Mild degenerative changes at both the right and left hips. Soft tissues: The extra-abdominal soft tissues are unremarkable. CT/CT abdomen wo/w con [id number] IMPRESSION: 1. No acute abnormality in the abdomen or pelvis. 2. Nonobstructing right renal stone. 3. Dominant follicle in the right ovary. 4. Scattered diverticula in the sigmoid colon. No evidence for diverticulitis. 5. Small infrarenal abdominal aortic aneurysm. 6. No lymphadenopathy or intra-abdominal mass. 7. Incidental/nonacute findings are listed in the report. COMMENTS: Consistent with the [employer]'s Incidental Findings Committee white paper (J Am Rzo Radiol 2018): Any incidental renal lesion less than 1 cm or classified as too small to characterize, or any incidental cystic renal lesion characterized as simple-appearing, is likely benign. No follow-up imaging is recommended for these lesions per consensus recommendations based on imaging criteria.
[2021-12-14] MEDS: iodixanol 320 mg/mL 100mL Btl IV (14:50)
== END 2021-12-14 12:00 | disposition home or self-care (01) ==
PROVIDERS: PCP Family Medicine; Visit Provider Family Medicine
DX: R63.4 Abnormal weight loss (principal); K57.30 Diverticulosis of large intestine without perforation or abscess without bleeding; I71.4 Abdominal aortic aneurysm, without rupture
CPT/HCPCS: 74170

== ENCOUNTER 2021-12-29 09:37 | Day surgery (SDC) | payer MEDICARE, OTHER, SELFPAY ==
[2021-12-28 10:34] VITALS: BMI 21.3
--- NOTE | 2021-12-28 10:54 | ANES.PREANE2 ---
Pre-Anesthetic Assessment Height/Weight: Height 1.8 m Weight 69.4 kg Preop Diagnosis: Occult blood in stool Operation Date: 12/29/21 11:15 Proposed Procedures p L4/5 decompression 98922,M43.16 will stand on the left(Bilateral) - Vicente Tello DO Familial anesthetic complications: None Social No alcohol and No tobacco Exam alert, oriented x 3, clear to auscultation bilaterally and regular rate & rhythm Airway Mallampati: Class II Dentition: false Pulmonary Chronic Obstructive Pulmonary Disease L upper lobe resected d/t MAC, oxygen 2 L NC prn w/ activity CV/HEM None reported UTI - finished her antibiotics told her to inform her surgeon Hepatic None reported GI None reported Metabolic None reported Musc/skel None reported Neuropsych None reported Anesthetic Plan ASA status: 2 Anesthesia: General Risk of > 500 ml blood loss (7ml/kg in children): No Medications/Allergies Home Medications Medication Instructions Recorded Confirmed Last Taken Type magnesium 250 mg tablet 250 mg PO DAILY 08/13/19 12/28/21 11/30/21 History oxygen-air delivery systems #1 08/13/19 12/12/21 11/30/21 History diltiazem HCl 60 mg tablet 60 mg PO BID 11/12/19 12/28/21 11/30/21 History (Cardizem) trazodone 50 mg tablet 50 mg PO BEDTIME 10/07/20 12/28/21 11/30/21 History vjtskrdtpq-ryxjmkxvzmdzh-nsxerjea 1 tab PO Q6H PRN #30 tab 06/22/21 12/28/21 11/30/21 Rx 50 mg-325 mg-40 mg tablet hydrocodone 5 mg-acetaminophen 325 1 tab PO QID PRN 11/26/21 12/28/21 11/30/21 History mg tablet albuterol sulfate 90 mcg/actuation 1 inh INHALATION Q6H PRN #8.5 g 11/28/21 12/28/21 11/30/21 Rx aerosol inhaler ferric carboxymaltose (Injectafer) 750 mg (15 mL) IV Q7D #15 ml 11/28/21 12/28/21 11/30/21 Rx umeclidinium 62.5 mcg-vilanterol 1 inh INHALATION DAILY #60 ea 12/15/21 12/28/21 Unknown Rx 25 mcg/actuation powdr for inhalation (Anoro Ellipta) venlafaxine 75 mg tablet 75 mg PO DAILY 12/28/21 12/28/21 Unknown History Allergies Allergy/AdvReac Type Severity Reaction Status Date / Time Penicillins Allergy Severe ALGY-Hives Verified 12/12/21 10:07 iron [From Venofer] Allergy ADR-Hyperte Verified 12/12/21 10:07 nsion meperidine [From Demerol] AdvReac Severe ADR-Vomitin Verified 12/12/21 10:07 g PFSH Anesthesia Medical History Anemia Chronic migraine without aura, intractable, with status migrainosus COPD (chronic obstructive pulmonary disease) Depression with anxiety GERD (gastroesophageal reflux disease) Hemorrhagic gastritis Nontuberculous mycobacterial disease of lung Pulmonary nodule Spondylolisthesis at L4-L5 level Surgical History H/O knee surgery H/O shoulder surgery History of cholecystectomy History of hysterectomy History of lobectomy of lung History of lung surgery Family History Mother Stroke Denies family history of Anesthesia complication Bleeding disorder Social History Smoking and tobacco status: former smoker Quit status (tobacco): has quit using tobacco Year quit tobacco: 2002 - >0.5 ppd x 15 Year Alcohol intake: never Lives independently: Yes Household members: spouse Marital status: Current occupational status: retired History of recent travel: No Data Anesthesia Cardiac Studies: Echocardiogram 11/27/21 Echocardiogram Ultrasound 01/06/20
[2021-12-29] VITALS (8 sets, daily range): BP systolic 106–132; BP diastolic 58–84; PULSE 72–105; RESP 18; TEMP 36.3–36.6; O2SAT 95–100
--- NOTE | 2021-12-29 | SCC_ITS ---
Procedure done: 1. Bilateral L4/5 laminectomy with partial facetectomies 13.2 seconds of fluoroscopic guidance, for a cumulative dose of 3.56 mGy, was provided to Dr. Tello by the radiology department. C-arm images of the lumbar spine were saved for the patient's permanent record. [facility]
[2021-12-29] MEDS: sodium chloride 0.9% 1,000 ML 30 ML IV (10:20)
--- NOTE | 2021-12-29 11:52 | P.ANESUD_ITS ---
Pre-Anesthetic Update Pre-Anesthetic Assessment: Date of Surgery/Procedure: 12/29/21 Preop Elma gnosis: Lumbar stenosis w Neurogenic Claudication Proposed Procedure: Operation Date: 12/29/21 11:15 Proposed Procedures p L4/5 decompression 08382,M43.16 will stand on the left(Bilateral) - Vicente Tello, DO Any changes to Pre-Anesthetic Assessment?: No Last Intake: Intake Last Liquid Date 12/28/21 Last Liquid Time 21:00 Last Solid Date 12/28/21 Last Solid Time 19:00 Vitals: Temperature 97.8 F 12/29/21 09:56 Temperature Source Temporal Artery S can 12/29/21 09:56 Pulse Rate 74 12/29/21 09:56 Respiratory Rate 18 12/29/21 09:56 Blood Pressure 114/69 12/29/21 09:56 Blood Pressure Marielle n 84 12/29/21 09:56 Pulse Oximetry 96 12/29/21 09:56 Oxygen Delivery Me thod 12/29/21 10:08 Exam: Pre-Anes Outpt Exam: alert, oriented x 3, clear to auscultation bilaterally and regular rate & rhythm Cardiac Studies: Echocardiogram 11/27/21 Echocardiogram Ultrasound 01/06/20
--- NOTE | 2021-12-29 12:43 | W.PM.OPSUD ---
Surgery/Procedure H&P Update DATE OF PROCEDURE: December 29, 2021 DATE H&P PERFORMED: 12/12/21 H&P UPDATE INFORMATION: I have reviewed H&P completed within last 30 days, I have examined patient prior to procedure and No changes to prior documentation PREOP DIAGNOSIS: Lumbar stenosis w Neurogenic Claudication PLANNED PROCEDURE: Operation Date: 12/29/21 11:15 Proposed Procedures p L4/5 decompression 28606,M43.16 will stand on the left(Bilateral) - Vicente Tello DO
[2021-12-29] MEDS: clindamycin 900 MG/50 ML PREMIX 100 MG IV (12:50)
--- NOTE | 2021-12-29 13:31 | XR_ITS ---
WS: [id number] Lumbar spine, C-arm fluoroscopy, 12/29/2021 Clinical Data: OR PICS Comparison: None. Findings: Dr. Tello performed a lumbar decompression. XR/XR lumbar spine 1V port [id number] Impression: Lumbar decompression.
--- NOTE | 2021-12-29 13:57 | PM.OP ---
Operative Report Date of procedure: December 29, 2021 Pre-op diagnosis: Preop Diagnosis Lumbar stenosis w Neurogenic Claudication Post-op diagnosis: same Procedure done: 1. Bilateral L4/5 laminectomy with partial facetectomies Surgeon: Vicente Tello Estimated blood loss (mL): 5 Procedure: 1. Bilateral L4/5 laminectomy with partial facetectomies Patient is brought to the operative suite. After undergoing anesthesia they are placed in the prone position. All areas of impingement are well padded. Patient is then prepped and draped in the normal sterile fashion. A skin incision is made over the L4-5 level. This is confirmed under c-arm guidance. A series of dilators are passed and the tubular retractor is docked on the L4 lamina. A bovie is used to clear the soft tissue off the lamina and the L 4/5 facet joint. A high speed valdemar is then used to perform the laminectomy and take down the medial aspect of the L 4/5 facet joint. A kerrison rongeure was then used to take down the remaining lamina and smooth the edged of the laminectomy up to the point where the ligamentum flavum attaches. Attention was then brought to the medial aspect of the facet joint. The remaining medial aspect of the superior and inferior aspect of the facet joint were taken down with the kerrison from the pedicle of L4 to L 5. The facet joint had significant hypertrophy. Attention was then brought to the Ligamentum Flavum. The ligament was taken down from the lamina of L4 to L5 and out medially to the remaining facet joint. The ligament was thick. The dura was then exposed. The dura was in good repair. The L4 nerve was then traced with a curette out the L4/5 foramen and found to be adequately decompressed. The L5 nerve was traced with a curette around the L5 pedicle. The lateral recess was opened with a kerrison helping to further decompress the L5 nerve. The tubular retractor was then tilted to the contralateral side. The bovie was used to take down the soft tissue on the spinous process. The high speed valdemar was used to take down the spinous process and then the contralateral lamina of L4. The kerrison rongeur was used to take down the remaining lamina to the point where the ligamentum flavum attached and the ligamentum flavum was taken down from L4 to L5. The kerrison rongeur was then used to reach across and take down the medial aspect of the contralateral L4/5 facet joint.The currete was used to trace the contralateral L4 nerve out the L4/5 foramen to make sure it was decompressed adequatesly and the L5 was traced around the L5 pedicle. The lateral recess was opened further with the kerrison to ensure the L5 is adequately decompressed. Wound is then irrigated copiously with saline and surgiflo is used to stop any bleeding. The tubular retractor is removed and the wound is closed with vicryl and monocryl suture. Glue is then used to protect the wound. A sterile dressing is then placed. Patient was then placed in the supine position and transferred to the PACU in stable condition.
--- NOTE | 2021-12-29 14:21 | ANE.PACU2 ---
Inpatient post-anesthesia follow up: Airway intact: Yes Vital signs: Temperature 97.3 F Pulse Rate 82 Respiratory Rate 18 Blood Pressure 121/63 Pulse Oximetry 95 Oxygen Delivery Me thod Room Air Oxygen Flow Rate 5 Fraction of Inspir ed Oxygen Hydration adequate: Yes Nausea and vomiting: No Pain level: 2 Mental status: Baseline
[2021-12-29] MEDS: HYDROcodone-acetaminophen 10-325 mg Tablet 1 TAB PO (14:27)
== END 2021-12-29 15:00 | disposition home or self-care (01) ==
PROVIDERS: PCP Family Medicine; Visit Provider Orthopaedic Surgery
PROC: (CPT 63005; principal; 2021-12-29 11:15)
DX: M48.062 Spinal stenosis, lumbar region with neurogenic claudication (principal); J44.9 Chronic obstructive pulmonary disease, unspecified; F32.9 Major depressive disorder, single episode, unspecified; F41.9 Anxiety disorder, unspecified; Z87.891 Personal history of nicotine dependence
CPT/HCPCS: 63047; 72020; 76000; J3490; J7030

== ENCOUNTER → 2022-01-11 10:14 | Outpatient (BNVA) | payer MEDICARE, OTHER, SELFPAY | PROVIDERS: PCP Family Medicine; Visit Provider Orthopaedic Surgery | DX: Z47.89 Encounter for other orthopedic aftercare (principal); Z98.890 Other specified postprocedural states | CPT/HCPCS: 99024 ==

== ENCOUNTER 2022-01-16 09:50 | Oncology outpatient (recurring) (ONCR) | payer MEDICARE, OTHER, SELFPAY ==
[2022-01-16 12:07] LABS: Basophils % 0.2 %; Eosinophils # 0.1 10^3/uL (0.0-0.8); Eosinophils % 0.8 %; Hematocrit 41.5 % (37.0-47.0); Lymphocytes % 15.5 %; Mean Corpuscular HGB Conc 31.3 g/dL (30.0-36.0); Mean Corpuscular Hemoglobin 28.7 pg (28.0-34.0); Mean Corpuscular Volume 91.6 fl (81-99); Mean Platelet Volume 9.1 fL (7.4-10.4); Monocytes # 0.5 10^3/uL (0.2-0.9); Monocytes % 7.2 %; Neutrophils # 4.97 10^3/uL (1.8-7.7); Nucleated Red Blood Cells % 0 %; Platelet Count 253 10^3/cmm (130-400); Red Blood Count 4.53 10^6/uL (4.1-5.3); Red Cell Distribution Width 20.6 % (12.1-15.1); White Blood Count 6.5 10^3/uL (4.0-10.0)
[2022-01-16 12:31] LABS: Alanine Aminotransferase 15 U/L (0-33); Albumin Level 4.3 g/dL (3.5-5.2); Alkaline Phosphatase 116 IU/L (35-105); Anion Gap 13.3 (5-19); Aspartate Amino Transferase 17 U/L (0-32); Blood Urea Nitrogen 14 mg/dL (8-23); Calcium 9.1 mg/dL (8.5-10.5); Carbon Dioxide 27 mmol/L (22-29); Chloride 106 mmol/L (98-107); Ferritin 264 ng/mL (15-150); Globulin 2.4 g/dL (1.3-4.6); Glomerular Filtration Rate 62.1 mL/min (90-130); Glucose 95 mg/dL (65-115); Iron 75 ug/dL (37-145); Osmolality Calculated 294 mOsm/kg (285-295); Percent Saturation 30.6 % (20-50); Potassium 4.3 mmol/L (3.5-5.1); Sodium 142 mmol/L (136-145); Total Bilirubin 0.2 mg/dL (0.15-1.2); Total Iron Binding Capacity 245 mcg/dl; Total Protein 6.7 g/dL (6.6-8.7); Unsaturated Iron Binding 170 ug/dL (112-347)
== END 2022-01-16 23:59 | disposition home or self-care (01) ==
PROVIDERS: PCP Family Medicine; Visit Provider Internal Medicine Medical Oncology
DX: K90.9 Intestinal malabsorption, unspecified (principal); D50.8 Other iron deficiency anemias
CPT/HCPCS: 36415; 80053; 82728; 83540; 83550; 85025; 99204

== ENCOUNTER 2022-01-18 14:39 | Outpatient (CLI) | payer MEDICARE, OTHER, SELFPAY ==
--- NOTE | 2022-01-18 14:55 | US_ITS ---
WS: [id number] RENAL ULTRASOUND HISTORY: URINARY SYMPTOM COMPARISON: 11/26/2021 TECHNIQUE: 2-D and color Doppler imaging of the kidney submitted. Right kidney: 9.3 cm x 3.4 cm x 4.1 cm. Low normal size kidney. No hydronephrosis or mass. Left kidney: 10.5 cm x 5.3 cm x 3.2 cm. Normal echogenicity with no hydronephrosis or mass. Aorta: Mild ectasia and atherosclerosis aorta. Maximum transverse diameter 3.1 cm. Urinary Bladder: Normal distention. US/US renal BI* [id number] IMPRESSION: 1. Low normal size RIGHT kidney. 2. No hydronephrosis or solid mass. 3. Mild atherosclerosis aorta and ectasia with a 3.1 cm aneurysm.
== END 2022-01-18 14:40 | disposition home or self-care (01) ==
LOC: RAD 14:41
PROVIDERS: PCP Family Medicine; Visit Provider Family Medicine
DX: R39.9 Unspecified symptoms and signs involving the genitourinary system (principal); I70.0 Atherosclerosis of aorta; I71.9 Aortic aneurysm of unspecified site, without rupture
CPT/HCPCS: 76770

== ENCOUNTER 2022-01-25 09:06 | Outpatient (RCR) | payer MEDICARE, OTHER, SELFPAY | END 2022-02-11 23:59 | disposition home or self-care (01) | LOC: PULRHB 09:06 | PROVIDERS: PCP Family Medicine; Visit Provider Internal Medicine Critical Care Medicine | DX: J44.9 Chronic obstructive pulmonary disease, unspecified (principal) | CPT/HCPCS: G0237; G0238 ==

== ENCOUNTER 2022-01-26 06:30 | Day surgery (SDC) | payer MEDICARE, OTHER, SELFPAY ==
[2022-01-26 07:03] VITALS: BP 111/63; PULSE 70; RESP 18; TEMP 36.2; O2SAT 95
[2022-01-26] MEDS: sodium chloride 0.9% 1,000 ML 30 ML IV (07:10)
--- NOTE | 2022-01-26 07:34 | P.HP_ITS ---
Providers/Chief Complaint Primary Care Provider: Svetlana Yeung APRN Chief Complaint: Anemia History of Present Illness Sunitha Hawkins is a 71 year old female who presents for EGD to evaluate anemia. Review of Systems General: Reports: 10 or more systems reviewed and unremarkable except in HPI and below Medications/Allergies Home Medications Medication Instructions Recorded Confirmed Last Taken Type oxygen-air delivery systems #1 08/13/19 01/25/22 01/25/22 History diltiazem HCl 60 mg tablet 60 mg PO BID 11/12/19 01/25/22 01/26/22 05:45 History (Cardizem) albuterol sulfate 90 mcg/actuation 1 inh INHALATION Q6H PRN #8.5 g 11/28/21 01/25/22 01/25/22 Rx aerosol inhaler umeclidinium 62.5 mcg-vilanterol 1 inh INHALATION DAILY #60 ea 12/15/21 01/25/22 01/25/22 Rx 25 mcg/actuation powdr for inhalation (Anoro Ellipta) venlafaxine 75 mg tablet 75 mg PO DAILY 12/28/21 01/25/22 01/25/22 History ascorbic acid (vitamin C) 1,000 mg 1 g PO DAILY tab 01/16/22 01/25/22 01/25/22 History tablet cholecalciferol (vitamin D3) 25 25 mcg PO DAILY 01/16/22 01/25/22 01/25/22 History mcg (1,000 unit) chewable tablet (Vitamin D3) magnesium 200 mg tablet 400 mg PO DAILY tab 01/16/22 01/25/22 01/25/22 History rizatriptan 5 mg tablet 5 mg PO Q2H PRN 01/16/22 01/25/22 01/25/22 History trazodone 50 mg tablet 150 mg PO BEDTIME tab 01/16/22 01/25/22 01/25/22 History Allergies Allergy/AdvReac Type Severity Reaction Status Date / Time Penicillins Allergy Severe ALGY-Hives Verified 01/25/22 10:33 iron [From Venofer] Allergy ADR-Hyperte Verified 01/25/22 10:33 nsion milk Allergy ADR-Vomitin Verified 01/25/22 10:33 g meperidine [From Demerol] AdvReac Severe ADR-Vomitin Verified 01/25/22 10:33 g PFSH Acute PFSH: Medical History Chronic insomnia Chronic migraine without aura, intractable, with status migrainosus COPD (chronic obstructive pulmonary disease) Depression with anxiety GERD (gastroesophageal reflux disease) Hemorrhagic gastritis Iron deficiency anemia Nontuberculous mycobacterial disease of lung Spondylolisthesis at L4-L5 level Surgical History H/O hysterectomy with unilateral oophorectomy (1988) H/O shoulder surgery History of back surgery (12/29/21) Bilateral L4/5 laminectomy with partial facetectomies History of cataract surgery (12/2021) Bilateral cataract excisions History of cholecystectomy (1982) History of esophagogastroduodenoscopy (10/10/20) History of lobectomy of lung (2003) Left upper lobectomy for MAC History of pyloric stenosis as a child Surgery at age 3 months Hx of colonoscopy (10/10/20) S/P arthroscopic surgery of right knee (2014) Family History Mother Stroke Dementia Father CAD (coronary artery disease) Hypertension Denies family history of Diabetes Clotting disorder Hyperlipidemia Psychiatric illness Chronic kidney disease (CKD) Suicide Anesthesia complication Bleeding disorder Lung disease Cancer Social History Smoking and tobacco status: former smoker Quit status (tobacco): has quit using tobacco Year quit tobacco: 2002 - >0.5 ppd x 15 Year Alcohol intake: never Lives independently: Yes Household members: spouse Marital status: Current occupational status: retired History of recent travel: No Vitals/I&O/Wt Last Vital Signs Temp 97.1 F L 01/26/22 07:03 Pulse 70 01/26/22 07:03 Resp 18 01/26/22 07:03 BP 111/63 01/26/22 07:03 Pulse Ox 95 01/26/22 07:03 Weight last 48 hrs Weight 154 lb Physical Exam Narrative: General : Patient is well developed , no acute distress, oriented x3 Head : Normal cephalic, a-traumatic. Ears : Pinnae and external canal are normal. Hearing is normal. Eyes : PERRLA, Sclera and injection are normal. No conjunctival discharge. Nose : Mucous membranes are without erythema. Throat : buccal mucosa is normal, gums are without significant recession or hypertrophy. Lungs : Equal chest rise bilaterally, no use of accessory muscles, trachea is midline. Cor : Rate and rhythm are normal. Abdomen : Soft, ND, NT, no g/r/m Extremities : No edema, no cyanosis or clubbing, dorsalis pedis pulses are present bilaterally, non-tender to palpation of calves. Upper extremities are normal bilaterally. Back : non-tender to palpation, no CVA tenderness. Neuro : CN II - XII intact, Upper and lower extremities have equal and full [facility] A&P Assessment and plan (1) Anemia: Status: Acute Plan EGD The risks and benefits of the procedure, including bleeding, infection, intestinal perforation requiring surgery, missed lesion, or explained to the patient. He is understanding of the risks and wishes to proceed. Attestations Medical Necessity Statement*: Patient will be discharged home Coding Level of Care Code Acute Diversional Therapist for [facility] Fwd Diagnoses Anemia D64.9
--- NOTE | 2022-01-26 08:07 | ANES.PREANE2 ---
Pre-Anesthetic Assessment Height/Weight: Height 1.8 m Weight 69.853 kg Temp Pulse Resp BP Pulse Ox 97.1 F L 70 18 111/63 95 01/26/22 07:03 01/26/22 07:03 01/26/22 07:03 01/26/22 07:03 01/26/22 07:03 Preop Diagnosis: anemia Operation Date: 01/26/22 08:00 Proposed Procedures p EGD 31815,K29.71(Not Applicable) - Aayush Hoffman DO Familial anesthetic complications: none Was Beta Jaylen taken within 24 hours: N/A Was Clonidine taken within 24 hours: N/A Last intake: Intake Last Liquid Date 01/25/22 Last Liquid Time 22:00 Last Solid Date 01/25/22 Last Solid Time 18:00 Social No alcohol and No tobacco Exam alert, oriented x 3, clear to auscultation bilaterally and regular rate & rhythm Airway Submandibular: within normal limits Cervical ROM: within normal limits Mallampati: Class I Dentition: false Pulmonary Chronic Obstructive Pulmonary Disease Only on O2 when doing s/p lung resection left upper lobe for MAC CV/HEM Anemia GI Gastroesophageal Reflux Disease Neuropsych Anxiety, Depression and Headache Cerebral artery aneurysm Anesthetic Plan ASA status: 3 Anesthesia: Anesthesia Evaluation, General and MAC Other: I discussed with the patient risks, goals, and benefits of MAC and general anesthesia. We discussed spectrum of MAC anesthesia including conversion to general as well as possibility of recall of intraoperative stimuli including discomfort/pain. Patient agrees to proceed with MAC. Risk of > 500 ml blood loss (7ml/kg in children): No Medications/Allergies Home Medications Medication Instructions Recorded Confirmed Last Taken Type oxygen-air delivery systems #1 08/13/19 01/25/22 01/25/22 History diltiazem HCl 60 mg tablet 60 mg PO BID 11/12/19 01/25/22 01/26/22 05:45 History (Cardizem) albuterol sulfate 90 mcg/actuation 1 inh INHALATION Q6H PRN #8.5 g 11/28/21 01/25/22 01/25/22 Rx aerosol inhaler umeclidinium 62.5 mcg-vilanterol 1 inh INHALATION DAILY #60 ea 12/15/21 01/25/22 01/25/22 Rx 25 mcg/actuation powdr for inhalation (Anoro Ellipta) venlafaxine 75 mg tablet 75 mg PO DAILY 12/28/21 01/25/22 01/25/22 History ascorbic acid (vitamin C) 1,000 mg 1 g PO DAILY tab 01/16/22 01/25/22 01/25/22 History tablet cholecalciferol (vitamin D3) 25 25 mcg PO DAILY 01/16/22 01/25/22 01/25/22 History mcg (1,000 unit) chewable tablet (Vitamin D3) magnesium 200 mg tablet 400 mg PO DAILY tab 01/16/22 01/25/22 01/25/22 History rizatriptan 5 mg tablet 5 mg PO Q2H PRN 01/16/22 01/25/22 01/25/22 History trazodone 50 mg tablet 150 mg PO BEDTIME tab 01/16/22 01/25/22 01/25/22 History Allergies Allergy/AdvReac Type Severity Reaction Status Date / Time Penicillins Allergy Severe ALGY-Hives Verified 01/25/22 10:33 iron [From Venofer] Allergy ADR-Hyperte Verified 01/25/22 10:33 nsion milk Allergy ADR-Vomitin Verified 01/25/22 10:33 g meperidine [From Demerol] AdvReac Severe ADR-Vomitin Verified 01/25/22 10:33 g Current Medications Generic Name Dose Route Start Last Admin Trade Name Freq PRN Reason Stop Dose Admin Sodium Chloride 1,000 mls @ 30 mls/hr 01/26/22 07:00 01/26/22 07:10 Sodium Chloride 0.9% IV 01/27/22 06:59 30 mls/hr .Q24H MESSI Administration PFSH Anesthesia Medical History Chronic insomnia Chronic migraine without aura, intractable, with status migrainosus COPD (chronic obstructive pulmonary disease) Depression with anxiety GERD (gastroesophageal reflux disease) Hemorrhagic gastritis Iron deficiency anemia Nontuberculous mycobacterial disease of lung Spondylolisthesis at L4-L5 level Surgical History H/O hysterectomy with unilateral oophorectomy (1988) H/O shoulder surgery History of back surgery (12/29/21) Bilateral L4/5 laminectomy with partial facetectomies History of cataract surgery (12/2021) Bilateral cataract excisions History of cholecystectomy (1982) History of esophagogastroduodenoscopy (10/10/20) History of lobectomy of lung (2003) Left upper lobectomy for MAC History of pyloric stenosis as a child Surgery at age 3 months Hx of colonoscopy (10/10/20) S/P arthroscopic surgery of right knee (2014) Family History Mother Stroke Dementia Father CAD (coronary artery disease) Hypertension Denies family history of Diabetes Clotting disorder Hyperlipidemia Psychiatric illness Chronic kidney disease (CKD) Suicide Anesthesia complication Bleeding disorder Lung disease Cancer Social History Smoking and tobacco status: former smoker Quit status (tobacco): has quit using tobacco Year quit tobacco: 2002 - >0.5 ppd x 15 Year Alcohol intake: never Lives independently: Yes Household members: spouse Marital status: Current occupational status: retired History of recent travel: No Data Anesthesia Cardiac Studies: Echocardiogram 11/27/21 Echocardiogram Ultrasound 01/06/20
[2022-01-26 08:36] VITALS: BP 111/56; PULSE 57; RESP 18; TEMP 36.1; O2SAT 99
[2022-01-26 08:46] VITALS: BP 118/79; PULSE 56; RESP 18; O2SAT 96
--- NOTE | 2022-01-26 14:02 | ANE.PACU2 ---
Inpatient post-anesthesia follow up: Airway intact: Yes Vital signs: Temperature 97.0 F Pulse Rate 56 Respiratory Rate 18 Blood Pressure 118/79 Pulse Oximetry 96 Oxygen Delivery Me thod Room Air Oxygen Flow Rate 3 Fraction of Inspir ed Oxygen Hydration adequate: Yes Nausea and vomiting: No Pain level: 1 Mental status: Baseline
== END 2022-01-26 09:00 | disposition home or self-care (01) ==
PROVIDERS: PCP Nurse Practitioner Adult Health; Visit Provider Surgery
PROC: 0DJ08ZZ Inspection of Upper Intestinal Tract, Via Natural or Artificial Opening Endoscopic (ICD-10-PCS; CPT 43235; principal; 2022-01-26 08:00)
DX: D64.9 Anemia, unspecified (principal); J44.9 Chronic obstructive pulmonary disease, unspecified; Z99.81 Dependence on supplemental oxygen; Z90.2 Acquired absence of lung [part of]; K21.9 Gastro-esophageal reflux disease without esophagitis; Z87.891 Personal history of nicotine dependence
CPT/HCPCS: 43239; 88305; J7030

== ENCOUNTER → 2022-02-08 09:08 | Outpatient (BNVA) | payer MEDICARE, OTHER, SELFPAY | PROVIDERS: PCP Nurse Practitioner Adult Health; Visit Provider Orthopaedic Surgery | DX: Z98.890 Other specified postprocedural states (principal); Z47.89 Encounter for other orthopedic aftercare | CPT/HCPCS: 99024 ==

== ENCOUNTER 2022-02-12 06:00 | Outpatient (RCR) | payer MEDICARE, OTHER, SELFPAY | END 2022-03-14 23:59 | disposition home or self-care (01) | LOC: PULRHB 06:00 | PROVIDERS: PCP Nurse Practitioner Adult Health; Visit Provider Internal Medicine Critical Care Medicine | DX: J44.9 Chronic obstructive pulmonary disease, unspecified (principal) | CPT/HCPCS: G0237; G0238; G0239 ==

== ENCOUNTER → 2022-02-13 14:35 | Outpatient (BNVA) | payer MEDICARE, OTHER, SELFPAY | PROVIDERS: PCP Nurse Practitioner Adult Health; Visit Provider Surgery | DX: Z09 Encounter for follow-up examination after completed treatment for conditions other than malignant neoplasm (principal) | CPT/HCPCS: 99212 ==

== ENCOUNTER 2022-03-15 06:00 | Outpatient (RCR) | payer MEDICARE, OTHER, SELFPAY | END 2022-04-13 23:59 | disposition home or self-care (01) | LOC: PULRHB 06:00 | PROVIDERS: PCP Family Medicine; Visit Provider Internal Medicine Critical Care Medicine | DX: J44.9 Chronic obstructive pulmonary disease, unspecified (principal) | CPT/HCPCS: G0239 ==

== ENCOUNTER → 2022-03-22 07:56 | Outpatient (BNVA) | payer MEDICARE, OTHER, SELFPAY | PROVIDERS: PCP Family Medicine; Visit Provider Orthopaedic Surgery | DX: Z98.890 Other specified postprocedural states (principal) | CPT/HCPCS: 99024 ==

== ENCOUNTER 2022-04-16 06:00 | Outpatient (RCR) | payer MEDICARE, OTHER, SELFPAY | END 2022-05-14 23:59 | disposition home or self-care (01) | LOC: SPT 06:00 | PROVIDERS: PCP Family Medicine; Visit Provider Orthopaedic Surgery | DX: J96.11 Chronic respiratory failure with hypoxia (principal) | CPT/HCPCS: 97110; 97161 ==

== ENCOUNTER 2022-04-23 12:11 | Emergency (ER) | payer MEDICARE, OTHER, SELFPAY ==
[2022-04-23 12:19] VITALS: BP 126/86; PULSE 105; RESP 16; TEMP 36.9; O2SAT 96; BMI 22.6
--- NOTE | 2022-04-23 12:48 | CT_ITS ---
WS: [id number] CT HEAD NONCONTRAST HISTORY: headache TECHNIQUE: Contiguous axial imaging performed through the brain in 2.5 mm imaging. Bone and soft tiss ue windows. Sagittal and coronal reformats reviewed. All CT scans at [facility] use at least one of these dose optimization techniques: automated exposure control; mA and/or kV adjustment per pa tient size (includes targeted exams where dose is matched to clinical indication); or iterative recon struction. DLP: 1153.68 mGy.cm COMPARISON: 05/15/2021 No acute intracranial hemorrhage, midline shift or mass effect. Mild atrophy with moderate small vessel ischemic changes which is mildly progressed. No new area of s ulcal effacement. Ventricles: Ventricles are mildly prominent due to atrophy. No inferior displacement of cerebellar tonsils. Paranasal sinuses: As visualized are clear. Mastoid air cells: Well pneumatized. Calvarium and scalp: Skull is intact with no soft tissue edema or swelling. CT/CT head wo con* [id number] IMPRESSION: 1. No acute intracranial hemorrhage or edema. 2. Mild cerebral atrophy with moderate small vessel ischemic disease. Mild pro gression of microvascular disease since 05/15/2021.
--- NOTE | 2022-04-23 12:49 | ED_ITS ---
HPI - Headache General: Chief Complaint: Headache Stated Complaint: Sent by baylee Dickey Time Seen by Provider: 04/23/22 12:41 History of Present Illness: 71-year-old female presents with headache. She reports that its been going on for a couple days. That is the worst headache of her life patient has a history of migraines but reports that this pain is different and worse than normal. She reports that on Saturday she went to the urgent care where they gave her a shot of some Toradol Benadryl and Zofran with minimal relief. That she went Dr. Dickey today who noticed that looks like she may have a left lobe pneumonia and started on doxycycline. However sent her to the ER for further evaluation due to a history of a aneurysm. Patient reports that in December she had an MRI and her aneurysm is unchanged from a longstanding aneurysm. However with the difference in the headache and having some vomiting throughout the last couple days they were concerned and wanted it further evaluated. Patient is not vomiting at this time has not vomited since this morning. Associated symptoms: Reports nausea and vomiting; Deny chest pain, fever(s) or rash Review of Systems Const: Reports: body aches and fatigue; Denies: fever(s) or chills Eyes: Reports: photophobia ENMT: Denies: throat pain or ear or mastoid pain Card: Denies: chest pain or palpitations Resp: Denies: dyspnea or wheezing GI: Reports: nausea and vomiting; Denies: abdominal pain or diarrhea : Denies: flank pain or difficulty voiding Musc: Denies: neck pain or back pain Skin/Breast: Denies: rash or erythema Psych: Denies: anxiety or depression PFS ED PFSH: Medical History Chronic insomnia Chronic migraine without aura, intractable, with status migrainosus COPD (chronic obstructive pulmonary disease) Depression with anxiety GERD (gastroesophageal reflux disease) Hemorrhagic gastritis Iron deficiency anemia Nontuberculous mycobacterial disease of lung Spondylolisthesis at L4-L5 level Surgical History H/O hysterectomy with unilateral oophorectomy (1988) H/O shoulder surgery History of back surgery (12/29/21) Bilateral L4/5 laminectomy with partial facetectomies History of cataract surgery (12/2021) Bilateral cataract excisions History of cholecystectomy (1982) History of esophagogastroduodenoscopy (10/10/20) History of lobectomy of lung (2003) Left upper lobectomy for MAC History of pyloric stenosis as a child Surgery at age 3 months Hx of colonoscopy (10/10/20) S/P arthroscopic surgery of right knee (2014) Family History Mother Stroke Dementia Father CAD (coronary artery disease) Hypertension Denies family history of Diabetes Clotting disorder Hyperlipidemia Psychiatric illness Chronic kidney disease (CKD) Suicide Anesthesia complication Bleeding disorder Lung disease Cancer Social History Smoking and tobacco status: never smoked Quit status (tobacco): has quit using tobacco Year quit tobacco: 2002 - >0.5 ppd x 15 Year Alcohol intake: never Lives independently: Yes Household members: spouse Marital status: Current occupational status: retired History of recent travel: No Female Reproductive History: Spontaneous abortions: No Physical Exam Const: COMMON NORMALS: no acute distress, patient oriented x3, no limitations and alert HENMT: COMMON NORMALS: normocephalic, hearing grossly normal bilaterally and moist oral mucous membranes HEAD & SCALP: normocephalic Resp: COMMON NORMALS: normal respiratory effort, No retractions, No use of accessory muscles and clear to auscultation bilaterally EFFORT & INSPECTION: Yes able to speak in complete sentences AUSCULTATION: clear to auscultation bilaterally Cardio: COMMON NORMALS: regular rate and regular rhythm RATE: regular rate RHYTHM: regular rhythm GI: COMMON NORMALS: Soft to palpation and non-tender PALPATION: Yes Soft to palpation Extremity: COMMON NORMALS: full ROM and capillary refill normal Neuro: COMMON NORMALS: patient oriented x3, CN's II-XII intact bilaterally, moves all extremities and no focal motor deficits SENSORIUM/ORIENTATION: Yes alert Psych: COMMON NORMALS: mental status grossly normal, Normal thought process present and normal affect THOUGHT PROCESS: Normal thought process present Skin: COMMON NORMALS: no rashes or lesions noted GENERAL SKIN EXAM: no rashes or lesions noted Course Vital Signs: Vital signs: Vital Signs Temperature 98.4 F 04/23/22 12:19 Pulse Rate 105 H 04/23/22 12:19 Respiratory Rate 16 04/23/22 12:19 Blood Pressure 126/86 04/23/22 12:19 Pulse Oximetry 96 04/23/22 12:19 Oxygen Delivery Me thod 04/23/22 12:19 Oxygen Flow Rate 1 04/23/22 12:19 MDM - Headache Medical Decision Making Patient CT shows no acute intracranial findings. Patient's symptoms likely her migraine with a infection causing worsening exacerbation. She feels s ignificantly better following treatment here in the ER. Patient reports that she is ready to be discharged home. Patient was stable upon discharge. Lab Data Radiology Impressions Head CT 04/23/22 12:48 IMPRESSION: 1. No acute intracranial hemorrhage or edema. 2. Mild cerebral atrophy with moderate small vessel ischemic disease. Mild progression of microvascular disease since 05/15/2021. Discharge Plan Discharge Condition: Stable Prescriptions: No Action (DME) oxygen-air delivery systems Device See Rx Instructions .ROUTE .MEDSUPPLY Qty: 1 Rx Instructions: As directed diltiazem HCl [Cardizem] 60 mg tablet 60 mg PO BID ascorbic acid (vitamin C) 1,000 mg tablet 1 g PO QAM cholecalciferol (vitamin D3) [Vitamin D3] 25 mcg (1,000 unit) tablet,chewable 25 mcg PO QAM magnesium 200 mg tablet 400 mg PO QAM diphenoxylate-atropine 2.5-0.025 mg tablet 1 tab PO QID PRN (Reason: Diarrhea) doxycycline calcium 50 mg/5 mL syrup 10 ml PO BID 10 Days Qty: 200 0RF Anoro Ellipta 62.5-25 mcg/actuation blister with device 1 inh inhalation DAILY Qty: 60 3RF ondansetron 8 mg tablet,disintegrating 8 mg PO TID PRN (Reason: Nausea And Vomiting) trazodone 150 mg tablet 150 mg PO BEDTIME hydrocodone-acetaminophen 5-325 mg tablet 1 tab PO Q6H PRN (Reason: Pain) venlafaxine 150 mg capsule,extended release 24hr 150 mg PO QAM ketoconazole 2 % cream 1 applic topical DAILY PRN (Reason: unknown) albuterol sulfate 90 mcg/actuation HFA aerosol inhaler 1 inh inhalation Q6H PRN (Reason: shortness of breath or wheezing) Qty: 8.5 0RF Referrals: Escobar Rodriguez DO [Primary Care Provider] - Coding Level of Care Code 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
[2022-04-23] MEDS: sodium chloride 0.9% 1,000 ML 999 ML IV (13:04)
[2022-04-23] MEDS: metoclopramide 5 mg/mL SDV 2 mL 10 MG IVP (13:04)
[2022-04-23] MEDS: diphenhydrAMINE 50 mg/mL SDV 1mL IVP (13:04)
[2022-04-23] MEDS: acetaminophen 325 mg Tablet 650 MG PO (13:04)
[2022-04-23 14:27] VITALS: BP 111/64; PULSE 94; RESP 16; O2SAT 100
== END 2022-04-23 14:30 | disposition home or self-care (01) ==
PROVIDERS: Emergency Provider Student in an Organized Health Care Education/Training Program; PCP Family Medicine
DX: G43.909 Migraine, unspecified, not intractable, without status migrainosus (principal)
CPT/HCPCS: 70450; 96361; 96374; 96375; 99285; J1200; J2765; J7030

== ENCOUNTER 2022-05-03 12:04 | Oncology outpatient (recurring) (ONCR) | payer MEDICARE, OTHER, SELFPAY ==
[2022-05-03 12:44] LABS: Basophils % 0.3 %; Eosinophils # 0.1 10^3/uL (0.0-0.8); Hematocrit 41.1 % (37.0-47.0); Lymphocytes # 1.3 10^3/uL (0.8-4.8); Lymphocytes % 21.9 %; Mean Corpuscular HGB Conc 31.6 g/dL (30.0-36.0); Mean Corpuscular Hemoglobin 31.3 pg (28.0-34.0); Mean Platelet Volume 8.4 fL (7.4-10.4); Monocytes # 0.5 10^3/uL (0.2-0.9); Monocytes % 8.5 %; Neutrophils # 4.14 10^3/uL (1.8-7.7); Neutrophils % 67.8 %; Nucleated Red Blood Cells % 0 %; Platelet Count 440 10^3/cmm (130-400); Red Blood Count 4.15 10^6/uL (4.1-5.3); Red Cell Distribution Width 13.1 % (12.1-15.1); White Blood Count 6.1 10^3/uL (4.0-10.0)
[2022-05-03 13:06] LABS: Ferritin 58 ng/mL (15-150); Iron 45 ug/dL (37-145); Percent Saturation 15.7 % (20-50); Total Iron Binding Capacity 285 mcg/dl; Unsaturated Iron Binding 240 ug/dL (112-347)
--- NOTE | 2022-05-03 15:33 | XRR_ITS ---
PROCEDURE INFORMATION: Exam: XR Chest Exam date and time: 05/03/2022 3:37 PM Age: 71 years old Clinical indication: Prior surgery; Surgery type: Left upper lobe; Patient HX: Cough 3 weeks; Additional info: Persistent cough TECHNIQUE: Imaging protocol: Radiologic exam of the chest. Views: 2 views. COMPARISON: CR (CHEST, ) 11/26/2021 8:46 AM FINDINGS: Lungs: No consolidation. Pleural spaces: No pleural effusion. No pneumothorax. Heart/Mediastinum: No cardiomegaly. Bones/joints: Visualized osseous structures are intact. XR/XR chest 2V* [id number] IMPRESSION: No acute findings.
== END 2022-05-14 23:59 | disposition home or self-care (01) ==
PROVIDERS: PCP Family Medicine; Visit Provider Internal Medicine Medical Oncology
DX: D50.8 Other iron deficiency anemias (principal); R05.8 Other specified cough
CPT/HCPCS: 36415; 71046; 82728; 83540; 83550; 85025; 99214

== ENCOUNTER → 2022-05-10 09:12 | Outpatient (BNVA) | payer MEDICARE, OTHER, SELFPAY | PROVIDERS: PCP Family Medicine; Visit Provider Orthopaedic Surgery | DX: Z47.89 Encounter for other orthopedic aftercare (principal) | CPT/HCPCS: 99213 ==

== ENCOUNTER → 2022-05-28 09:26 | Outpatient (BNVA) | payer MEDICARE, OTHER, SELFPAY | PROVIDERS: PCP Family Medicine; Visit Provider Internal Medicine Pulmonary Disease | DX: R91.1 Solitary pulmonary nodule (principal); J44.9 Chronic obstructive pulmonary disease, unspecified; J96.11 Chronic respiratory failure with hypoxia; A31.0 Pulmonary mycobacterial infection; Z87.891 Personal history of nicotine dependence; Z99.81 Dependence on supplemental oxygen; Z90.2 Acquired absence of lung [part of] | CPT/HCPCS: 99214 ==

== ENCOUNTER → 2022-06-28 09:25 | Outpatient (BNVA) | payer MEDICARE, OTHER, SELFPAY | PROVIDERS: PCP Family Medicine; Visit Provider Family Medicine | DX: D50.8 Other iron deficiency anemias (principal); R51.9 Headache, unspecified; G89.29 Other chronic pain | CPT/HCPCS: 85025; 85651; 86140 ==

== ENCOUNTER 2022-07-21 10:40 | Emergency (ER) | payer MEDICARE, OTHER, SELFPAY ==
[2022-07-21 10:43] VITALS: BP 117/75; PULSE 116; RESP 20; TEMP 38.2; O2SAT 93; BMI 22.9
--- NOTE | 2022-07-21 11:02 | XRR_ITS ---
PROCEDURE INFORMATION: Exam: XR Chest Exam date and time: 07/21/2022 11:10 AM Age: 71 years old Clinical indication: Fever TECHNIQUE: Imaging protocol: Radiologic exam of the chest. Views: 1 view. COMPARISON: CR XR chest 2V* [id number] 05/03/2022 3:37 PM FINDINGS: Lungs: There is new hazy airspace opacities about the lateral aspect of the left mid to lower lung, concerning for pneumonia. Unchanged chronic blunting of the left costophrenic angle and elevation of the left hemidiaphragm. Surgical clips are again seen along the medial aspect of the left lung. Pleural spaces: See Lungs finding. Heart/Mediastinum: Stable cardiomediastinal silhouette. Bones/joints: Degenerative changes of the spine seen. XR/XR chest 1V portable [id number] IMPRESSION: Chronic volume loss in the left lung, with new airspace opacities, concerning for pneumonia. Clinical correlation is recommended.
--- NOTE | 2022-07-21 11:03 | ECG_ITS ---
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 Measurements Intervals [place] Rate: 107 P: 90 [place]: 134 QRS: 93 QRSD: 96 T: 81 QT: 300 QTc: 401 Interpretive Statements SINUS TACHYCARDIA POSSIBLE LEFT ATRIAL ENLARGEMENT [-0.1mV P-WAVE IN V1/V2] BORDERLINE RIGHT AXIS DEVIATION [QRS AXIS > 90] ABNORMAL RHYTHM ECG INTERPRETATION BASED ON A DEFAULT AGE OF 40 YEARS Compared to ECG 11/26/2021 15:07:18 Sinus rhythm no longer present Electronically Signed On 07-22-2022 19:51:25 SNOW REMOVAL/PLOWING by Mildred John M.D. [email or web address]
--- NOTE | 2022-07-21 11:37 | ED_ITS ---
HPI - General Adult General: Chief complaint: General Medical Stated complaint: fall, back injury Time Seen by Provider: 07/21/22 10:42 Source: patient Mode of arrival: ambulatory History of Present Illness: 71-year-old female presents emergency room complaining of back pain. She fell at home yesterday. She stumbled backwards l anded on a scale and said glass type scale evidently she reports it broke. She has some pain in the posterior left ribs where she landed. She had been coughing and short of breath she chronically is on 2 L of oxygen. She is reporting coughing up green mucus generally not feeling well has a low-grade fever on presentation here. Denies any hemoptysis. No chest pain prior to the fall Onset (ago): hour(s) Location: chest Radiation: other (Posterior chest wall laterally) Severity: moderate Quality: sharp Pain Consistency: constant Relieving factors: none Exacerbating factors: none Associated symptoms: Reports chest pain, cough, decreased appetite, dyspnea, fevers/chills, malaise, nausea, short of breath and weakness; Deny confusion, diaphoresis, headache(s), rash, palpitations, seizures, syncope or vomiting Review of Systems Const: Reports: malaise; Denies: fever(s), chills or diaphoresis ENMT: Denies: throat pain, ear or mastoid pain, nasal discharge or nasal congestion Card: Reports: chest pain; Denies: palpitations or syncope Resp: Reports: dyspnea GI: Reports: nausea; Denies: abdominal pain or vomiting : Denies: flank pain, difficulty voiding, dysuria, urinary frequency or urinary urgency Skin/Breast: Denies: rash Neuro: Denies: headache(s) or confusion PFSH ED PFSH: Medical History Chronic insomnia Chronic migraine without aura, intractable, with status migrainosus COPD (chronic obstructive pulmonary disease) Depression with anxiety GERD (gastroesophageal reflux disease) Hemorrhagic gastritis Iron deficiency anemia Nontuberculous mycobacterial disease of lung Spondylolisthesis at L4-L5 level Surgical History H/O hysterectomy with unilateral oophorectomy (1988) H/O shoulder surgery History of back surgery (12/29/21) Bilateral L4/5 laminectomy with partial facetectomies History of cataract surgery (12/2021) Bilateral cataract excisions History of cholecystectomy (1982) History of esophagogastroduodenoscopy (10/10/20) History of lobectomy of lung (2003) Left upper lobectomy for MAC History of pyloric stenosis as a child Surgery at age 3 months Hx of colonoscopy (10/10/20) S/P arthroscopic surgery of right knee (2014) Family History Mother Stroke Dementia Father CAD (coronary artery disease) Hypertension Denies family history of Diabetes Clotting disorder Hyperlipidemia Psychiatric illness Chronic kidney disease (CKD) Suicide Anesthesia complication Bleeding disorder Lung disease Cancer Social History Smoking and tobacco status: former smoker Quit status (tobacco): has quit using tobacco Year quit tobacco: 2002 - >0.5 ppd x 15 Year Alcohol intake: never Lives independently: Yes Household members: spouse Marital status: Current occupational status: retired History of recent travel: No Female Reproductive History: Spontaneous abortions: No Physical Exam Const: GENERAL APPEARANCE: cooperative and comfortable ORIENT ATION/CONSCIOUSNESS: Yes awake, Yes oriented to person, Yes oriented to place and Yes oriented to time HENMT: COMMON NORMALS: normocephalic, atraumatic and hearing grossly normal bilaterally HEAD & SCALP: normocephalic and atraumatic Eye: COMMON NORMALS: Equal, round and reactive pupils present, EOMs intact bilaterally, conjunctivae normal and no scleral icterus CONJUNCTIVA: Yes conjunctivae normal PUPIL: Yes Equal, round and reactive pupils present Neck/C-Spine: COMMON NORMALS: full ROM, no lymphadenopathy, supple and no JVD Lymph: LYMPHATIC: no lymphadenopathy noted and no lymphedema noted Resp: COMMON NORMALS: normal respiratory effort, No retractions and No use of accessory muscles AUSCULTATION: rhonchi and wheezes Cardio: COMMON NORMALS: no JVD, regular rate, regular rhythm and No murmurs present (Cardio) RATE: regular rate RHYTHM: regular rhythm GI: COMMON NORMALS: No hepatosplenomegaly present AUSCULTATION: Yes normoactive bowel sounds PALPATION: No Tenderness to palpation present (GI), No Guarding due to palpation present (GI) and Yes No hepatosplenomegaly present Extremity: COMMON NORMALS: normal to inspection, capillary refill normal, no clubbing, cyanosis or edema, no calf tenderness and no pedal edema Neuro: SENSORIUM/ORIENTATION: Yes oriented to person, Yes oriented to place and Yes oriented to time Skin: COMMON NORMALS: no rashes or lesions noted GENERAL SKIN EXAM: no rashes or lesions noted Course Vital Signs: Vital signs: Vital Signs Temperature 100.7 F H 07/21/22 10:43 Pulse Rate 101 H 07/21/22 15:00 Respiratory Rate 16 07/21/22 15:00 Blood Pressure 124/82 07/21/22 15:00 Pulse Oximetry 94 07/21/22 15:00 Oxygen Delivery Me thod 07/21/22 15:00 Oxygen Flow Rate 2 07/21/22 10:43 [facility] - General Adult Medical Decision Making Findings of mild pneumonia on chest x-ray. She also has mild exacerbation of COPD we will start her on oral steroids and oral antibiotics she would prefer to go home at this time aggressive use of nebulizers. Medical Records I reviewed the patient's medical records. Lab Data I reviewed the patient's lab results. 07/21/22 12:00 07/21/22 12:00 Radiology Impressions Chest X-Ray 07/21/22 11:02 IMPRESSION: Chronic volume loss in the left lung, with new airspace opacities, concerning for pneumonia. Clinical correlation is recommended. Laboratory Results WBC 11.7 10^3/uL (4.0-10.0) H 07/21/22 12:00 RBC 3.96 10^6/uL (4.1-5.3) L 07/21/22 12:00 Hgb 11.6 g/dL (11.5-15.3) 07/21/22 12:00 Hct 36.8 % (37.0-47.0) L 07/21/22 12:00 MCV 92.9 fl (81-99) 07/21/22 12:00 MCH 29.3 pg (28.0-34.0) 07/21/22 12:00 MCHC 31.5 g/dL (30.0-36.0) 07/21/22 12:00 RDW 12.9 % (12.1-15.1) 07/21/22 12:00 Plt Count 354 10^3/cmm (130-400) 07/21/22 12:00 MPV 9.1 fL (7.4-10.4) 07/21/22 12:00 Neut % (Auto) 79.7 % 07/21/22 12:00 Lymph % (Auto) 6.1 % 07/21/22 12:00 [place] % (Auto) 13.1 % 07/21/22 12:00 Eos % (Auto) 0.3 % 07/21/22 12:00 Baso % (Auto) 0.3 % 07/21/22 12:00 Neut # (Auto) 9.34 10^3/uL (1.8-7.7) H 07/21/22 12:00 Lymph # (Auto) 0.7 10^3/uL (0.8-4.8) L 07/21/22 12:00 [place] # (Auto) 1.5 10^3/uL (0.2-0.9) H 07/21/22 12:00 Eos # (Auto) 0.0 10^3/uL (0.0-0.8) 07/21/22 12:00 Baso # (Auto) 0.0 10^3/uL (0.0-0.1) 07/21/22 12:00 Nucleated RBC % (auto) 0 % 07/21/22 12:00 Nucleated RBCs # 0.0 /100WBC 07/21/22 12:00 Sodium 132 mmol/L (136-145) L 07/21/22 12:00 Potassium 4.4 mmol/L (3.5-5.1) 07/21/22 12:00 Chloride 94 mmol/L (98-107) L 07/21/22 12:00 Carbon Dioxide 27 mmol/L (22-29) 07/21/22 12:00 Anion Gap 15.4 (5-19) 07/21/22 12:00 BUN 11 mg/dL (8-23) 07/21/22 12:00 Creatinine 0.9 mg/dL (0.5-0.9) 07/21/22 12:00 GFR Calculation 62.1 mL/min (90-130) L 07/21/22 12:00 Glucose 120 mg/dL (65-115) H 07/21/22 12:00 Calculated Osmolality 275 mOsm/kg (285-295) L 07/21/22 12:00 Lactate 0.8 mmol/L (0.5-2.2) 07/21/22 12:00 Calcium 9.1 mg/dL (8.5-10.5) 07/21/22 12:00 Total Bilirubin 0.4 mg/dL (0.15-1.2) 07/21/22 12:00 AST 27 U/L (0-32) 07/21/22 12:00 ALT 23 U/L (0-33) 07/21/22 12:00 Alkaline Phosphatase 212 U/L (35-105) H 07/21/22 12:00 Total Protein 7.4 g/dL (6.6-8.7) 07/21/22 12:00 Albumin 4.1 g/dL (3.5-5.2) 07/21/22 12:00 Globulin 3.3 g/dL (1.3-4.6) 07/21/22 12:00 Urine Color Yellow (Yellow) 07/21/22 13:15 Urine Appearance Clear (CLEAR) 07/21/22 13:15 Urine pH 5 (5-7) 07/21/22 13:15 Ur Specific [place] 1.010 (1.005-1.030) 07/21/22 13:15 Urine Protein Neg (Negative) 07/21/22 13:15 Urine Glucose (UA) Norm (Normal) 07/21/22 13:15 Urine Ketones Negative (Negative) 07/21/22 13:15 Urine Blood 2+ (Negative) H 07/21/22 13:15 Urine Nitrate Negative (Negative) 07/21/22 13:15 Urine Bilirubin Neg (Negative) 07/21/22 13:15 Urine Urobilinogen Norm mg/dL (Negative) 07/21/22 13:15 Ur Leukocyte Esterase Negative (Negative) 07/21/22 13:15 Urine RBC Rare /hpf (0-2) 07/21/22 13:15 Urine WBC Rare /hpf (0-5) 07/21/22 13:15 Ur Squamous Epith Cells None /hpf (0-5) 07/21/22 13:15 Amorphous Sediment Not Reportable 07/21/22 13:15 Urine Bacteria Trace /hpf (NONE) 07/21/22 13:15 Coronavirus 229E (PCR) Not detected (NOT DETECT) 07/21/22 12:00 Influenza Type A Ag negative (Negative) 07/21/22 12:00 Influenza Type B Ag negative (Negative) 07/21/22 12:00 SARS-CoV-2 (PCR) Not detected (NOT DETECT) 07/21/22 12:00 Discharge Plan Discharge Patient Disposition: Home Clinical Impression: Pneumonia, COPD (chronic obstructive pulmonary disease) Condition: Stable Prescriptions: New levofloxacin 750 mg tablet 750 mg PO DAILY 7 Days Qty: 7 0RF prednisone 20 mg tablet 20 mg PO TID Qty: 15 0RF Rx Instructions: 1 p.o. 3 times daily x3 days, 1 p.o. twice daily x2 days, 1 p.o. daily x2 days No Action (DME) oxygen-air delivery systems Device See Rx Instructions .ROUTE .MEDSUPPLY Qty: 1 Rx Instructions: As directed ascorbic acid (vitamin C) 1,000 mg tablet 1 g PO QAM cholecalciferol (vitamin D3) [Vitamin D3] 25 mcg (1,000 unit) tablet,chewable 25 mcg PO QAM magnesium 200 mg tablet 400 mg PO QAM albuterol sulfate 90 mcg/actuation HFA aerosol inhaler 1 inh inhalation Q6H PRN (Reason: shortness of breath or wheezing) Qty: 8.5 0RF Anoro Ellipta 62.5-25 mcg/actuation blister with device 1 inh inhalation DAILY Qty: 60 3RF benzonatate 200 mg capsule 200 mg PO TID PRN (Reason: cough) Qty: 90 2RF ketoconazole 2 % cream See Rx Instructions .ROUTE .COMPLEX Qty: 30 0RF Dose Instruction: apply topically EVERY DAY Rx Instructions: apply topically EVERY DAY diltiazem HCl [Cardizem] 60 mg tablet 60 mg PO BID Qty: 180 2RF hydrocodone-acetaminophen 5-325 mg tablet 1 tab PO Q6H PRN (Reason: Pain) 30 Days Qty: 90 0RF Rx Instructions: Covering for Dr. Rodriguez clonazepam 1 mg tablet 1 mg PO DAILY Qty: 30 5RF ondansetron 8 mg tablet,disintegrating 8 mg PO TID PRN (Reason: Nausea And Vomiting) trazodone 150 mg tablet 150 mg PO BEDTIME venlafaxine 150 mg capsule,extended release 24hr 150 mg PO QAM Discharge Orders: Discharge ED (Routine); Ordered 07/21/22 Ordered By: Gordo Gaitan Referrals: Escobar Rodriguez, [Primary Care Provider] - Discharge Diet: Usual diet Discharge Activity: Limit activity as instructed Patient Instructions: Opioid Safety, Pain Management Activity Restrictions/Additional Instructions: You were seen today for shortness of breath and cough. You have a mild exacerbation of your COPD and evidence of pneumonia. Recommend you start prednisone taper and oral antibiotics use albuterol every 4 hours while awake. Wear your oxygen continuously at at least 3 L/min for the next week if not improving follow-up with your primary care doctor. Coding Level of Care Code ED Blood Donor Unit Assistant for Chg Fwd Exam Comprehensive
[2022-07-21 12:43] LABS: Basophils % 0.3 %; Eosinophils % 0.3 %; Hematocrit 36.8 % (37.0-47.0); Hemoglobin 11.6 g/dL (11.5-15.3); Lymphocytes # 0.7 10^3/uL (0.8-4.8); Lymphocytes % 6.1 %; Mean Corpuscular HGB Conc 31.5 g/dL (30.0-36.0); Mean Corpuscular Hemoglobin 29.3 pg (28.0-34.0); Mean Corpuscular Volume 92.9 fl (81-99); Mean Platelet Volume 9.1 fL (7.4-10.4); Monocytes # 1.5 10^3/uL (0.2-0.9); Monocytes % 13.1 %; Neutrophils # 9.34 10^3/uL (1.8-7.7); Neutrophils % 79.7 %; Nucleated Red Blood Cells % 0 %; Platelet Count 354 10^3/cmm (130-400); Red Blood Count 3.96 10^6/uL (4.1-5.3); Red Cell Distribution Width 12.9 % (12.1-15.1); White Blood Count 11.7 10^3/uL (4.0-10.0)
[2022-07-21 13:05] LABS: Lactate (Lactic Acid level) 0.8 mmol/L (0.5-2.2)
[2022-07-21 13:11] LABS: Influenza A by IFA negative (Negative); Influenza B by IFA negative (Negative)
[2022-07-21 13:22] LABS: Alanine Aminotransferase 23 U/L (0-33); Albumin Level 4.1 g/dL (3.5-5.2); Alkaline Phosphatase 212 U/L (35-105); Anion Gap 15.4 (5-19); Aspartate Amino Transferase 27 U/L (0-32); Blood Urea Nitrogen 11 mg/dL (8-23); Calcium 9.1 mg/dL (8.5-10.5); Carbon Dioxide 27 mmol/L (22-29); Chloride 94 mmol/L (98-107); Globulin 3.3 g/dL (1.3-4.6); Glomerular Filtration Rate 62.1 mL/min (90-130); Glucose 120 mg/dL (65-115); Osmolality Calculated 275 mOsm/kg (285-295); Potassium 4.4 mmol/L (3.5-5.1); Sodium 132 mmol/L (136-145); Total Bilirubin 0.4 mg/dL (0.15-1.2); Total Protein 7.4 g/dL (6.6-8.7)
[2022-07-21 14:04] LABS: Add Urine Microscopic? YES; Bilirubin Urine Neg (Negative); Blood Urine 2+ (Negative); Glucose Urine UA Norm (Normal); Ketones Urine Negative (Negative); Leukocyte Esterase Urine Negative (Negative); Nitrate Urine Negative (Negative); Protein Urine Neg (Negative); Urine Appearance Clear (CLEAR); Urine Color Yellow (Yellow); Urobilinogen Urine Norm (Negative); pH Urine 5 (5-7)
[2022-07-21 14:05] LABS: Add Urine Culture? No; Bacteria Urine TRACE /hpf; RBC Urine RARE /hpf (0-2); WBC Urine RARE /hpf (0-5)
[2022-07-21] MEDS: acetaminophen 325 mg Tablet 650 MG PO (14:18)
[2022-07-21 14:43] LABS: Adenovirus Not Detected (NOT DETECT); Chlamydia Pneumoniae Not Detected (NOT DETECT); Coronavirus 229E,HKU1,NL63,OC4 Not Detected (NOT DETECT); Human Metapneumovirus Not Detected (NOT DETECT); Human Rhinovirus/Enterovirus Not Detected (NOT DETECT); Influenza A Not Detected (NOT DETECT); Influenza A H1 Not Detected (NOT DETECT); Influenza A H1-2009 Not Detected (NOT DETECT); Influenza A H3 Not Detected (NOT DETECT); Influenza B Not Detected (NOT DETECT); Mycoplasma Pneumoniae Not Detected (NOT DETECT); Parainfluenza Virus Type 1 Not Detected (NOT DETECT); Parainfluenza Virus Type 2 Not Detected (NOT DETECT); Parainfluenza Virus Type 3 Not Detected (NOT DETECT); Parainfluenza Virus Type 4 Not Detected (NOT DETECT); Respiratory Syncytial Virus A Not Detected (NOT DETECT); Respiratory Syncytial Virus B Not Detected (NOT DETECT); SARS-COV-2 Not Detected (NOT DETECT)
[2022-07-21 15:00] VITALS: BP 124/82; PULSE 101; RESP 16; O2SAT 94
== END 2022-07-21 15:00 | disposition home or self-care (01) ==
PROVIDERS: Emergency Medicine; Emergency Provider Family Medicine; PCP Family Medicine
DX: J44.0 Chronic obstructive pulmonary disease with (acute) lower respiratory infection (principal); J18.9 Pneumonia, unspecified organism; Z20.822 Contact with and (suspected) exposure to COVID-19; Z87.891 Personal history of nicotine dependence
CPT/HCPCS: 71045; 80053; 81001; 83605; 85025; 87040; 87635; 87804; 93005; 99285

== ENCOUNTER 2022-09-27 09:10 | Emergency (ER) | payer MEDICARE, OTHER, SELFPAY ==
[2022-09-27] VITALS (7 sets, daily range): BP systolic 112–142; BP diastolic 64–78; PULSE 63–80; RESP 13–22; TEMP 36.4; O2SAT 92–99
--- NOTE | 2022-09-27 09:32 | XR_ITS ---
WS: [id number] XR chest 1V portable [id number] REASON FOR EXAM: dyspnea/cough FINDINGS: Postoperative left hemithorax with decreased volume of the left hemithorax and multiple surgical clip s. Complex some diaphragmatic calcification. Elevation of the left hemidiaphragm. Lung opacities in the left lung seen on 07/21/2022 have completely resolved. No active pulmonary parenc hymal or pleural disease is identified at this time. The heart and mediastinum are within normal limits. XR/XR chest 1V portable [id number] IMPRESSION: Postoperative left chest. No acute chest abnormality.
--- NOTE | 2022-09-27 09:36 | ECG_ITS ---
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
--- NOTE | 2022-09-27 09:40 | ED_ITS ---
HPI - SOB/Dyspnea General: Chief Complaint: Shortness of Breath/Dyspnea Stated Complaint: Irregular labs/vitals Time Seen by Provider: 09/27/22 09:17 Source: patient Mode of arrival: ambulatory History of Present Illness: HPI Narrative: 71-year-old female presents to the emergency room with shortness of breath the last 2 weeks. Patient is chronically on oxygen at 2 L/min. She went to an office visit today was to have blood drawn. At the office they reported she was hypotensive and hypoxic on arrival here she is normotensive and has a sat in the upper 90s with 2 L by nasal cannula which is her normal oxygen supplementation. She denies any chest pain or abdominal pain no active bleeding no bright red blood per rectum no hematemesis or coffee-ground emesis. She has a history of COPD and is on oxygen for her COPD. She also has a history of previous known iron deficiency anemia although her most recent hemoglobin in the chart is 11 6 with an MCV of 92.9 MD elicited complaint: shortness of breath Pertinent past history: COPD Onset (ago): week(s) (2) Timing: now resolved Severity: mild Exacerbating factors: exertion Relieving factors: nothing Known history of: COPD Associated symptoms: Deny abdominal pain, chest congestion, chest pain, cough, diaphoresis, dizziness, extremity pain, fever(s), hemoptysis, lightheadedness, myalgias, nausea, orthopnea, palpitations, paresthesias, polydipsia, polyuria, rash, sense of impending doom, syncope or vomiting Review of Systems Const: Denies: fever(s), chills, fatigue, malaise or diaphoresis ENMT: Denies: throat pain, ear or mastoid pain, nasal discharge or nasal congestion Card: Denies: chest pain, palpitations, lightheadedness, syncope or orthopnea Resp: Reports: dyspnea and non-productive cough; Denies: wheezing, hemoptysis or chest congestion GI: Denies: abdominal pain, nausea or vomiting : Denies: flank pain, difficulty voiding, dysuria, urinary frequency or urinary urgency Musc: Denies: extremity pain Skin/Breast: Denies: rash or pruritus Neuro: Denies: dizziness Endo: Denies: polyuria or polydipsia PFS ED PFSH: Medical History Chronic insomnia Chronic migraine without aura, intractable, with status migrainosus COPD (chronic obstructive pulmonary disease) Depression with anxiety GERD (gastroesophageal reflux disease) Hemorrhagic gastritis Iron deficiency anemia Nontuberculous mycobacterial disease of lung Spondylolisthesis at L4-L5 level Surgical History H/O hysterectomy with unilateral oophorectomy (1988) H/O shoulder surgery History of back surgery (12/29/21) Bilateral L4/5 laminectomy with partial facetectomies History of cataract surgery (12/2021) Bilateral cataract excisions History of cholecystectomy (1982) History of esophagogastroduodenoscopy (10/10/20) History of lobectomy of lung (2003) Left upper lobectomy for MAC History of pyloric stenosis as a child Surgery at age 3 months Hx of colonoscopy (10/10/20) S/P arthroscopic surgery of right knee (2014) Family History Mother Stroke Dementia Father CAD (coronary artery disease) Hypertension Denies family history of Diabetes Clotting disorder Hyperlipidemia Psychiatric illness Chronic kidney disease (CKD) Suicide Anesthesia complication Bleeding disorder Lung disease Cancer Social History Smoking and tobacco status: former smoker Quit status (tobacco): has quit using tobacco Year quit tobacco: 2002 - >0.5 ppd x 15 Year Alcohol intake: never Lives independently: Yes Household members: spouse Marital status: Current occupational status: retired Female Reproductive History: Spontaneous abortions: No Physical Exam Const: GENERAL APPEARANCE: cooperative and comfortable ORIENTATION/CONSCIOU SNESS: Yes awake, Yes oriented to person, Yes oriented to place and Yes oriented to time HENMT: COMMON NORMALS: normocephalic, atraumatic and hearing grossly normal bilaterally HEAD & SCALP: normocephalic and atraumatic Resp: COMMON NORMALS: normal respiratory effort, No retractions, No use of accessory muscles and clear to auscultation bilaterally AUSCULTATION: clear to auscultation bilaterally Cardio: COMMON NORMALS: regular rate, regular rhythm and No murmurs present (Cardio) RATE: regular rate RHYTHM: regular rhythm GI: COMMON NORMALS: Soft to palpation and No hepatosplenomegaly present AUSCULTATION: Yes normoactive bowel sounds PALPATION: Yes Soft to palpation, No Tenderness to palpation present (GI), No Guarding due to palpation present (GI) and Yes No hepatosplenomegaly present Extremity: COMMON NORMALS: normal to inspection, capillary refill normal, no clubbing, cyanosis or edema, no calf tenderness and no pedal edema Neuro: SENSORIUM/ORIENTATION: Yes oriented to person, Yes oriented to place and Yes oriented to time Skin: COMMON NORMALS: no rashes or lesions noted GENERAL SKIN EXAM: no rashes or lesions noted Course Vital Signs: Vital signs: Vital Signs Temperature 97.5 F L 09/27/22 09:20 Pulse Rate 63 09/27/22 11:55 Respiratory Rate 13 09/27/22 11:55 Blood Pressure 118/78 09/27/22 11:55 Pulse Oximetry 96 09/27/22 11:55 Oxygen Delivery Me thod 09/27/22 09:20 Oxygen Flow Rate 2 09/27/22 09:20 MDM - SOB/Dyspnea Medical Decision Making Labs imaging and EKG reviewed as found in the chart. No acute ST changes no acute changes on EKG. Her hemoglobin is lower but not at the point of which she would require transfusion she has no active bleeding her vital signs have been normal and stable the entire time she is here on her normal oxygen supplementation discharge her home on her usual oxygen at 2 L/min have her follow-up with her primary care doctor. Medical Records I reviewed the patient's medical records. Lab Data I reviewed the patient's lab results. 09/27/22 10:00 09/27/22 10:00 Labs/Radiology: Radiology Impressions Chest X-Ray 09/27/22 09:32 IMPRESSION: Postoperative left chest. No acute chest abnormality. Laboratory Results WBC 5.2 10^3/uL (4.0-10.0) 09/27/22 10:00 RBC 4.21 10^6/uL (4.1-5.3) 09/27/22 10:00 Hgb 10.8 g/dL (11.5-15.3) L 09/27/22 10:00 Hct 36.4 % (37.0-47.0) L 09/27/22 10:00 MCV 86.5 fl (81-99) 09/27/22 10:00 MCH 25.7 pg (28.0-34.0) L 09/27/22 10:00 MCHC 29.7 g/dL (30.0-36.0) L 09/27/22 10:00 RDW 14.6 % (12.1-15.1) 09/27/22 10:00 Plt Count 400 10^3/cmm (130-400) 09/27/22 10:00 MPV 8.6 fL (7.4-10.4) 09/27/22 10:00 Neut % (Auto) 71.1 % 09/27/22 10:00 Lymph % (Auto) 16.0 % 09/27/22 10:00 [place] % (Auto) 10.0 % 09/27/22 10:00 Eos % (Auto) 2.3 % 09/27/22 10:00 Baso % (Auto) 0.4 % 09/27/22 10:00 Neut # (Auto) 3.68 10^3/uL (1.8-7.7) 09/27/22 10:00 Lymph # (Auto) 0.8 10^3/uL (0.8-4.8) 09/27/22 10:00 [place] # (Auto) 0.5 10^3/uL (0.2-0.9) 09/27/22 10:00 Eos # (Auto) 0.1 10^3/uL (0.0-0.8) 09/27/22 10:00 Baso # (Auto) 0.0 10^3/uL (0.0-0.1) 09/27/22 10:00 Nucleated RBC % (auto) 0 % 09/27/22 10:00 Nucleated RBCs # 0.0 /100WBC 09/27/22 10:00 Sodium 142 mmol/L (136-145) 09/27/22 10:00 Potassium 4.5 mmol/L (3.5-5.1) 09/27/22 10:00 Chloride 105 mmol/L (98-107) 09/27/22 10:00 Carbon Dioxide 29 mmol/L (22-29) 09/27/22 10:00 Anion Gap 12.5 (5-19) 09/27/22 10:00 BUN 15 mg/dL (8-23) 09/27/22 10:00 Creatinine 1.0 mg/dL (0.5-0.9) H 09/27/22 10:00 GFR Calculation 55.0 mL/min (90-130) L 09/27/22 10:00 Glucose 104 mg/dL (65-115) 09/27/22 10:00 Calculated Osmolality 295 mOsm/kg (285-295) 09/27/22 10:00 Calcium 9.6 mg/dL (8.5-10.5) 09/27/22 10:00 Total Bilirubin 0.2 mg/dL (0.15-1.2) 09/27/22 10:00 AST 16 U/L (0-32) 09/27/22 10:00 ALT 8 U/L (0-33) 09/27/22 10:00 Alkaline Phosphatase 94 U/L (35-105) 09/27/22 10:00 Total Protein 6.6 g/dL (6.6-8.7) 09/27/22 10:00 Albumin 4.2 g/dL (3.5-5.2) 09/27/22 10:00 Globulin 2.4 g/dL (1.3-4.6) 09/27/22 10:00 Urine Color Yellow (Yellow) 09/27/22 10:02 Urine Appearance Clear (CLEAR) 09/27/22 10:02 Urine pH 6 (5-7) 09/27/22 10:02 Ur Specific [place] 1.010 (1.005-1.030) 09/27/22 10:02 Urine Protein Neg (Negative) 09/27/22 10:02 Urine Glucose (UA) Norm (Normal) 09/27/22 10:02 Urine Ketones Negative (Negative) 09/27/22 10:02 Urine Blood Neg (Negative) 09/27/22 10:02 Urine Nitrate Negative (Negative) 09/27/22 10:02 Urine Bilirubin Neg (Negative) 09/27/22 10:02 Urine Urobilinogen Neg mg/dL (Negative) 09/27/22 10:02 Ur Leukocyte Esterase Negative (Negative) 09/27/22 10:02 Discharge Plan Discharge Patient Disposition: Home Clinical Impression: COPD (chronic obstructive pulmonary disease), Anemia Condition: Stable Prescriptions: No Action (DME) oxygen-air delivery systems Device See Rx Instructions .ROUTE .MEDSUPPLY Qty: 1 Rx Instructions: As directed ascorbic acid (vitamin C) 1,000 mg tablet 1 g PO QAM cholecalciferol (vitamin D3) [Vitamin D3] 25 mcg (1,000 unit) tablet,chewable 25 mcg PO QAM magnesium 200 mg tablet 400 mg PO QAM clonazepam 1 mg tablet 1 mg PO DAILY Qty: 30 5RF albuterol sulfate 90 mcg/actuation HFA aerosol inhaler 1 inh inhalation Q6H PRN (Reason: shortness of breath or wheezing) Qty: 8.5 0RF Anoro Ellipta 62.5-25 mcg/actuation blister with device 1 inh inhalation DAILY Qty: 60 3RF ketoconazole 2 % cream See Rx Instructions .ROUTE .COMPLEX Qty: 30 0RF Dose Instruction: apply topically EVERY DAY Rx Instructions: apply topically EVERY DAY diltiazem HCl [Cardizem] 60 mg tablet 60 mg PO BID Qty: 180 2RF hydrocodone-acetaminophen 5-325 mg tablet 1 tab PO Q6H PRN (Reason: Pain) 30 Days Qty: 90 0RF Rx Instructions: refill on or after 30 days, Covering for Dr. Rodriguez trazodone 150 mg tablet 150 mg PO BEDTIME venlafaxine 150 mg capsule,extended release 24hr 150 mg PO DAILY Abhinav Probiotic 1 tab PO DAILY Discharge Orders: Discharge ED (Routine); Ordered 09/27/22 Ordered By: Gordo Gaitan Referrals: Escobar Rodriguez DO [Primary Care Provider] - Discharge Diet: Usual diet Discharge Activity: Increase activity as tolerated Patient Instructions: Opioid Safety, Pain Management Activity Restrictions/Additional Instructions: Surgery today for concerns of hypoxia. While you were monitored here in the [facility] room your oxygen was normal on 2 L by nasal cannula recommend you can continue the 2 L by nasal cannula continuously your chest x-ray was normal your labs showed a mild anemia but did not require transfusion. Coding Level of Care Code ED Charter Coach Driver for Martha Dickerson
[2022-09-27 10:25] LABS: Basophils % 0.4 %; Eosinophils # 0.1 10^3/uL (0.0-0.8); Eosinophils % 2.3 %; Hematocrit 36.4 % (37.0-47.0); Hemoglobin 10.8 g/dL (11.5-15.3); Lymphocytes # 0.8 10^3/uL (0.8-4.8); Mean Corpuscular HGB Conc 29.7 g/dL (30.0-36.0); Mean Corpuscular Hemoglobin 25.7 pg (28.0-34.0); Mean Corpuscular Volume 86.5 fl (81-99); Mean Platelet Volume 8.6 fL (7.4-10.4); Monocytes # 0.5 10^3/uL (0.2-0.9); Neutrophils # 3.68 10^3/uL (1.8-7.7); Neutrophils % 71.1 %; Nucleated Red Blood Cells % 0 %; Platelet Count 400 10^3/cmm (130-400); Red Blood Count 4.21 10^6/uL (4.1-5.3); Red Cell Distribution Width 14.6 % (12.1-15.1); White Blood Count 5.2 10^3/uL (4.0-10.0)
[2022-09-27 10:26] LABS: Add Urine Microscopic? NO; Charge for UA Resulting for Rev
[2022-09-27 10:40] LABS: Bilirubin Urine Neg (Negative); Blood Urine Neg (Negative); Glucose Urine UA Norm (Normal); Ketones Urine Negative (Negative); Leukocyte Esterase Urine Negative (Negative); Nitrate Urine Negative (Negative); Protein Urine Neg (Negative); Urine Appearance Clear (CLEAR); Urine Color Yellow (Yellow); Urobilinogen Urine Neg (Negative); pH Urine 6 (5-7)
[2022-09-27 10:48] LABS: Alanine Aminotransferase 8 U/L (0-33); Albumin Level 4.2 g/dL (3.5-5.2); Alkaline Phosphatase 94 U/L (35-105); Anion Gap 12.5 (5-19); Aspartate Amino Transferase 16 U/L (0-32); Blood Urea Nitrogen 15 mg/dL (8-23); Calcium 9.6 mg/dL (8.5-10.5); Carbon Dioxide 29 mmol/L (22-29); Chloride 105 mmol/L (98-107); Globulin 2.4 g/dL (1.3-4.6); Glucose 104 mg/dL (65-115); Osmolality Calculated 295 mOsm/kg (285-295); Potassium 4.5 mmol/L (3.5-5.1); Sodium 142 mmol/L (136-145); Total Bilirubin 0.2 mg/dL (0.15-1.2); Total Protein 6.6 g/dL (6.6-8.7)
== END 2022-09-27 12:07 | disposition home or self-care (01) ==
PROVIDERS: Emergency Provider Family Medicine; PCP Family Medicine
DX: J44.9 Chronic obstructive pulmonary disease, unspecified (principal); D64.9 Anemia, unspecified; Z87.891 Personal history of nicotine dependence; Z99.81 Dependence on supplemental oxygen
CPT/HCPCS: 71045; 80053; 81003; 85025; 93005; 99285

== ENCOUNTER 2022-11-02 08:26 | Outpatient (CLI) | payer MEDICARE, OTHER, SELFPAY ==
--- NOTE | 2022-11-02 08:37 | MM_ITS ---
WS: [id number] BILATERAL SCREENING DIGITAL TOMOSYNTHESIS MAMMOGRAM WITH CAD HISTORY: SCREEN COMPARISON: 10/12/2021 1 09/15/2020 Bilateral CC and MLO views with tomosynthesis and synthetic mammography submitted. Computer aided det ection analyzed. Breast composition: There are scattered areas of fibroglandular density. No suspicious masses, microc alcifications or architectural distortion. Benign calcifications in each breast. MM/[place] [id number] IMPRESSION: BI-RADS: 2-Benign FOLLOW UP: 1 Year Follow-up
== END 2022-11-02 08:27 | disposition home or self-care (01) ==
LOC: RAD 08:30
PROVIDERS: PCP Family Medicine; Visit Provider Family Medicine
DX: Z12.31 Encounter for screening mammogram for malignant neoplasm of breast (principal)
CPT/HCPCS: 77063; 77067

== ENCOUNTER → 2022-11-26 10:21 | Outpatient (BNVA) | payer MEDICARE, OTHER, SELFPAY | PROVIDERS: PCP Family Medicine; Visit Provider Internal Medicine Pulmonary Disease | DX: J44.9 Chronic obstructive pulmonary disease, unspecified (principal); J96.11 Chronic respiratory failure with hypoxia; R91.1 Solitary pulmonary nodule; A31.0 Pulmonary mycobacterial infection; Z87.891 Personal history of nicotine dependence; Z99.81 Dependence on supplemental oxygen | CPT/HCPCS: 99214 ==

== ENCOUNTER 2023-01-12 06:00 | Outpatient (RCR) | payer MEDICARE, OTHER, SELFPAY | END 2023-02-11 23:59 | disposition home or self-care (01) | LOC: PULRHB 06:00 | PROVIDERS: PCP Family Medicine; Visit Provider Internal Medicine Pulmonary Disease | DX: J96.11 Chronic respiratory failure with hypoxia (principal) | CPT/HCPCS: G0237; G0238; G0239 ==

== ENCOUNTER → 2023-01-28 09:54 | Outpatient (BNVA) | payer MEDICARE, OTHER, SELFPAY | PROVIDERS: PCP Family Medicine; Visit Provider Family Medicine | DX: F41.1 Generalized anxiety disorder (principal); G47.00 Insomnia, unspecified; J44.9 Chronic obstructive pulmonary disease, unspecified; D64.9 Anemia, unspecified; E83.52 Hypercalcemia; Z79.899 Other long term (current) drug therapy | CPT/HCPCS: 80053; 80061; 82306; 83036; 84443; 85025 ==

== ENCOUNTER 2023-02-06 07:20 | Outpatient (RCR) | payer MEDICARE, OTHER, SELFPAY | END 2023-02-11 23:59 | disposition home or self-care (01) | LOC: SOT 07:20 | PROVIDERS: PCP Family Medicine; Visit Provider Family Medicine | DX: M79.642 Pain in left hand (principal); M79.641 Pain in right hand; G56.21 Lesion of ulnar nerve, right upper limb | CPT/HCPCS: 97110; 97166; 97530 ==

== ENCOUNTER 2023-02-12 06:00 | Outpatient (RCR) | payer MEDICARE, OTHER, SELFPAY | END 2023-03-14 23:59 | disposition home or self-care (01) | LOC: SOT 06:00 | PROVIDERS: PCP Family Medicine; Visit Provider Family Medicine | DX: M79.641 Pain in right hand (principal); M79.642 Pain in left hand; G56.21 Lesion of ulnar nerve, right upper limb | CPT/HCPCS: 97022; 97110; 97140; G0283 ==

== ENCOUNTER 2023-02-12 06:00 | Outpatient (RCR) | payer MEDICARE, OTHER, SELFPAY | END 2023-03-14 23:59 | disposition home or self-care (01) | LOC: PULRHB 06:00 | PROVIDERS: PCP Family Medicine; Visit Provider Internal Medicine Pulmonary Disease | DX: J96.11 Chronic respiratory failure with hypoxia (principal) | CPT/HCPCS: 94625; G0239 ==

== ENCOUNTER 2023-02-26 14:13 | Outpatient (CLI) | payer MEDICARE, OTHER, SELFPAY ==
--- NOTE | 2023-02-26 14:20 | XR_ITS ---
WS: [id number] RIGHT HAND: 2 VIEW(S) TECHNIQUE: PA and lateral. HISTORY: Hand pain COMPARISON: None available. Mild diffuse interphalangeal joint space narrowing. Mild diffuse osteopenia. No erosions. Mild degene rative changes at the first CMC joint and the first metacarpal phalangeal joint. No soft tissue edema. IMPRESSION: Mild diffuse osteoarthritis.
--- NOTE | 2023-02-26 14:20 | XR_ITS ---
WS: [id number] LEFT HAND: 2 VIEW(S) TECHNIQUE: PA and lateral. HISTORY: Hand pain COMPARISON: None available. Mild diffuse interphalangeal joint space narrowing. Mild narrowing of the first CMC joint. Bones are diffusely osteopenic. No erosions at the metacarpal heads. Mild narrowing at the first metacarpal pha langeal joint. Normal soft tissues. IMPRESSION: Mild osteoarthritis. Mild osteopenia.
== END 2023-02-26 14:14 | disposition home or self-care (01) ==
PROVIDERS: PCP Family Medicine; Visit Provider Family Medicine
DX: M79.641 Pain in right hand (principal); M79.642 Pain in left hand; R20.0 Anesthesia of skin; M19.042 Primary osteoarthritis, left hand; M85.80 Other specified disorders of bone density and structure, unspecified site; M19.041 Primary osteoarthritis, right hand
CPT/HCPCS: 73120

== ENCOUNTER → 2023-02-27 09:25 | Outpatient (BNVA) | payer MEDICARE, OTHER, SELFPAY | PROVIDERS: PCP Family Medicine; Visit Provider Family Medicine | DX: D50.8 Other iron deficiency anemias (principal); K90.9 Intestinal malabsorption, unspecified; M79.641 Pain in right hand; M79.642 Pain in left hand; R20.0 Anesthesia of skin; E83.42 Hypomagnesemia; E83.52 Hypercalcemia; F41.1 Generalized anxiety disorder; M47.816 Spondylosis without myelopathy or radiculopathy, lumbar region; M43.16 Spondylolisthesis, lumbar region | CPT/HCPCS: 80053; 82306; 82607; 82728; 82746; 83550; 83735; 84443; 84466; 85025; 86038; 86200; 86431 ==

== ENCOUNTER 2023-03-14 13:33 | Oncology outpatient (recurring) (ONCR) | payer MEDICARE, OTHER, SELFPAY | END 2023-03-14 23:59 | disposition home or self-care (01) | PROVIDERS: PCP Family Medicine; Visit Provider Family Medicine | DX: Z53.9 Procedure and treatment not carried out, unspecified reason (principal) ==

== ENCOUNTER 2023-03-15 06:00 | Outpatient (RCR) | payer MEDICARE, OTHER, SELFPAY | END 2023-04-13 23:59 | disposition home or self-care (01) | LOC: PULRHB 06:00 | PROVIDERS: PCP Family Medicine; Visit Provider Internal Medicine Pulmonary Disease | DX: J96.11 Chronic respiratory failure with hypoxia (principal) | CPT/HCPCS: G0239 ==

== ENCOUNTER 2023-03-15 07:36 | Outpatient (RCR) | payer MEDICARE, OTHER, SELFPAY | END 2023-04-13 23:59 | disposition home or self-care (01) | LOC: SOT 07:36 | PROVIDERS: PCP Family Medicine; Visit Provider Family Medicine | DX: G56.21 Lesion of ulnar nerve, right upper limb (principal); M79.642 Pain in left hand | CPT/HCPCS: 97022; 97110; G0283 ==

== ENCOUNTER 2023-03-21 14:37 | Outpatient (CLI) | payer MEDICARE, OTHER, SELFPAY ==
--- NOTE | 2023-03-21 | XR_ITS ---
WS: [id number] SCREENING DEXA SCAN [facility] CLINICAL INFORMATION: Z78.0 COMPARISON: None. FINDINGS: The L1-L4 bone mineral density measures 1.28. This corresponds to a T score score of 0.7 and Z score of 2.0. Left femoral neck bone mineral density measures 0.945 g/cm2. This corresponds to a T score of -0.5 an d Z score of 0.7. Right femoral neck bone mineral density measures 0.930 g/cm2. This corresponds to a T score -0.6of an d Z score of 0.6. Mean femoral neck bone mineral density measures 0.937 g/cm2. This corresponds to a T score of -0.6 an d Z score of 0.7. IMPRESSION: Normal bone mineralization lumbar spine. Normal bone mineralization femoral necks. Patient's FRAX calculated 10 year probability for major osteoporotic fracture is 9.6% and osteoporoti c hip fracture is 1.2%. Bone marrow density lumbar spine decrease -2.7% since 2018 Femoral neck bone mineral density decrease -6.0% since 2018
== END 2023-03-21 14:38 | disposition home or self-care (01) ==
PROVIDERS: PCP Family Medicine; Visit Provider Nurse Practitioner Women's Health
DX: Z13.820 Encounter for screening for osteoporosis (principal); Z78.0 Asymptomatic menopausal state
CPT/HCPCS: 77080

== ENCOUNTER 2023-03-22 08:00 | Oncology outpatient (recurring) (ONCR) | payer MEDICARE, OTHER, SELFPAY ==
[2023-03-15 08:00] VITALS: BP 110/69; PULSE 86; RESP 18; TEMP 36.7; O2SAT 92
[2023-03-15] MEDS: sodium chloride 0.9% 250 ML 75 ML IV (08:07)
[2023-03-15] MEDS: ferric carboxy (IVPB) 750 MG in sodium chloride 0.9% (100 ml) 100 ML 345 MG IV (08:15)
[2023-03-15 09:10] VITALS: BP 109/70; PULSE 81; RESP 18; TEMP 36.4; O2SAT 92
[2023-03-22 08:00] VITALS: BP 165/98; PULSE 74; RESP 16; TEMP 36.3; O2SAT 99
[2023-03-22 08:15] VITALS: BP 126/67; PULSE 94; RESP 18; TEMP 36.4; O2SAT 99
[2023-03-22] MEDS: ferric carboxy (IVPB) 750 MG in sodium chloride 0.9% (100 ml) 100 ML 345 MG IV (08:48)
[2023-03-22 09:15] VITALS: BP 108/68; PULSE 81; RESP 17; TEMP 36.6; O2SAT 93
== END 2023-04-13 23:59 | disposition home or self-care (01) ==
PROVIDERS: PCP Family Medicine; Visit Provider Family Medicine
DX: D50.8 Other iron deficiency anemias (principal)
CPT/HCPCS: 36415; 96365; J1439; J7050

== ENCOUNTER → 2023-03-27 09:57 | Outpatient (BNVA) | payer MEDICARE, OTHER, SELFPAY | PROVIDERS: PCP Family Medicine; Visit Provider Family Medicine | DX: K29.71 Gastritis, unspecified, with bleeding (principal); D64.9 Anemia, unspecified; R20.0 Anesthesia of skin; M79.641 Pain in right hand; M79.642 Pain in left hand | CPT/HCPCS: 82728; 83540; 85027 ==

== ENCOUNTER → 2023-04-19 09:11 | Outpatient (BNVA) | payer MEDICARE, OTHER, SELFPAY | PROVIDERS: PCP Family Medicine; Visit Provider Nurse Practitioner Family | DX: R39.9 Unspecified symptoms and signs involving the genitourinary system (principal); N30.01 Acute cystitis with hematuria | CPT/HCPCS: 81000 ==

== ENCOUNTER 2023-04-30 09:01 | Oncology outpatient (recurring) (ONCR) | payer MEDICARE, OTHER, SELFPAY ==
[2023-04-23 09:21] VITALS: BP 100/66; PULSE 74; RESP 18; TEMP 36.5; O2SAT 97
[2023-04-23] MEDS: ferric carboxy (IVPB) 750 MG in sodium chloride 0.9% (100 ml) 100 ML 345 MG IV (09:44)
[2023-04-23 10:20] VITALS: BP 108/68; PULSE 76; RESP 18; O2SAT 95
[2023-04-30 09:21] VITALS: BP 143/78; PULSE 84; RESP 18; TEMP 36.5; O2SAT 99
[2023-04-30] MEDS: ferric carboxy (IVPB) 750 MG in sodium chloride 0.9% (100 ml) 100 ML 345 MG IV (09:36)
[2023-04-30 10:25] VITALS: BP 113/55; PULSE 74; TEMP 36.4; O2SAT 98
== END 2023-05-14 23:59 | disposition home or self-care (01) ==
PROVIDERS: PCP Family Medicine; Visit Provider Family Medicine
DX: D50.8 Other iron deficiency anemias (principal)
CPT/HCPCS: 96365; J1439

== ENCOUNTER → 2023-05-02 13:14 | Outpatient (BNVA) | payer MEDICARE, OTHER, SELFPAY | PROVIDERS: PCP Family Medicine; Visit Provider Student in an Organized Health Care Education/Training Program | DX: M18.0 Bilateral primary osteoarthritis of first carpometacarpal joints | CPT/HCPCS: 99213 ==

== ENCOUNTER 2023-05-09 13:45 | Emergency (ER) | payer MEDICARE, OTHER, SELFPAY ==
[2023-05-09 14:14] VITALS: BP 102/70; PULSE 107; RESP 16; TEMP 36.6; O2SAT 94; BMI 24.0
--- NOTE | 2023-05-09 14:20 | XR_ITS ---
WS: [id number] Exam: XR chest 2V* [id number] Date/Time of Exam: 05/09/2023 2:20 PM Reason For Exam: 3 weeks post covid, doesn't feel getting better, cough, dysp Comparison 09/27/2022. There is diffuse interstitial and groundglass infiltrate in the mid and lower LEFT lung. Blunted LEFT costophrenic angle may indicate small volume pleural effusion. The RIGHT lung is clear. Normal cardi omediastinal silhouette. Surgical clips seen at the LEFT pulmonary hilum as well as the LEFT pleural apex. Regional bony elements are intact. Surgical clips also seen in the upper abdomen. IMPRESSION: 1. Interstitial and groundglass infiltrate in the mid and lower LEFT lung. This probably represents p neumonia. Blunted LEFT costophrenic angle suggesting small pleural effusion.
--- NOTE | 2023-05-09 14:31 | ED_ITS ---
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 she reports she got COVID infection approximately 3 weeks ago. She started to get better at the middle of last week and thought she was on the other side of it. However she started throwing up on Saturday and then over the last couple days has developed left posterior sharp lung pain and mucus production that is green and reeves. She has had some sweats but no chills or fever. She feels like she probably has developed pneumonia. She says her normal heart rate is around 90. She has been getting lightheaded with standing. She has to stand up much slower than usual. She does endorse decreased oral intake due to lack of appetite. No following, altered mental status, hypoxia ( Uses 3 L/mi), hemoptysis, extremity swelling or pain COVID 19 common symptoms: negative fever(s), chills, body aches, throat pain or diarrhea COVID 19 other sytmptoms: negative chest pain COVID Results: SARS-CoV-2 Antigen (Rapid) Negative (Negative) 11/26/21 09:30 Nasal/Oral Coronavirus 2019 PCR Not detected 10/05/20 15:47 SARS-CoV-2 (PCR) Not detected (NOT DETECT) 07/21/22 12:00 Coronavirus Type 229E (PCR) Not detected (NOT DETECT) 07/21/22 12:00 Review of Systems General: Reports: 10 or more systems reviewed and unremarkable except in HPI and below Const: Denies: fever(s), chills or body aches Eyes: Denies: change in vision ENMT: Denies: throat pain Card: Denies: chest pain, edema or syncope GI: Denies: abdominal pain or diarrhea : Denies: flank pain, dysuria or urinary frequency Musc: Denies: neck pain, extremity pain or extremity swelling Skin/Breast: Denies: rash or erythema Neuro: Denies: numbness in extremities, lack of coordination or difficulty walking [facility] ED PFSH: Medical History Chronic insomnia Chronic migraine without aura, intractable, with status migrainosus COPD (chronic obstructive pulmonary disease) Depression with anxiety GERD (gastroesophageal reflux disease) Hemorrhagic gastritis Iron deficiency anemia No pertinent past medical history neghx: htn,dm,thyroid,dvt/pe PCP: Dr. Rodriguez Nontuberculous mycobacterial disease of lung Spondylolisthesis at L4-L5 level Surgical History H/O hysterectomy with unilateral oophorectomy (1988) TVH with one ovary spared. Performed due to bleeding and concern of cancer; was benign. Performed in [facility]. H/O shoulder surgery History of back surgery (12/29/21) Bilateral L4/5 laminectomy with partial facetectomies History of cataract surgery (12/2021) Bilateral cataract excisions History of cholecystectomy (1982) History of esophagogastroduodenoscopy (10/10/20) History of lobectomy of lung (2003) Left upper lobectomy for MAC History of pyloric stenosis as a child Surgery at age 3 months Hx of colonoscopy (10/10/20) S/P arthroscopic surgery of right knee (2014) Family History Mother Stroke Dementia Heart disease Father CAD (coronary artery disease) Hypertension Heart disease Denies family history of Colon cancer Ovarian cancer Prostate cancer Diabetes Clotting disorder Hyperlipidemia Psychiatric illness Chronic kidney disease (CKD) Breast cancer Suicide Anesthesia complication Bleeding disorder Lung disease Cancer Uterine cancer Thyroid disease Social History (Updated 05/02/23 @ 13:31 by Georgie Morales LPN) Smoking and tobacco/nicotine status: former use of tobacco/nicotine Alcohol intake: never Female Reproductive History: Spontaneous abortions: No Physical Exam Narrative: EXAM NARRATIVE: notable findings include nontoxic appearing female who looks her stated age. She is sitting upright conversing with no respiratory distress. She does have fine crackles in the bases of her lungs bilaterally. No wheezing or other adventitious breath sounds. No prolonged expiratory phase. She has slightly decreased turgor but her radial pulses easily palpable. She has a slight pallor. Her heart rate is around 101 bpm although by the end of the conversation it has slowed down. Patient had just gotten into the room from triage and it was around 108 so some of this might of been exertional tachycardia. She is not coughing during exam. Const: COMMON NORMALS: no limitations, alert and well nourished EXAM LIMITATIONS: no altered mental status HENMT: COMMON NORMALS: normocephalic, atraumatic and external ears normal HEAD & SCALP: normocephalic and atraumatic EXTERNAL EAR: Yes external ears normal MOUTH: no muffled voice Eye: COMMON NORMALS: EOMs intact bilaterally, conjunctivae normal and no scleral icterus CONJUNCTIVA: Yes conjunctivae normal Neck/C-Spine: COMMON NORMALS: no JVD GENERAL: Yes normal visual inspection and Yes trachea midline Resp: COMMON NORMALS: normal respiratory effort and No use of accessory muscles Cardio: COMMON NORMALS: no JVD and regular rhythm RHYTHM: regular rhythm GI: COMMON NORMALS: Soft to palpation and non-tender PALPATION: Yes Soft to palpation and No Guarding due to palpation present (GI) Extremity: COMMON NORMALS: normal to inspection Neuro: COMMON NORMALS: moves all extremities, no focal motor deficits and no sensory deficits noted SENSORIUM/ORIENTATION: Yes alert SPEECH: speech normal Psych: COMMON NORMALS: mental status grossly normal, Normal thought process present, cooperative, normal affect and speech normal SPEECH: Yes normal speech THOUGHT PROCESS: Normal thought process present Skin: COMMON NORMALS: no rashes or lesions noted and no jaundice GENERAL SKIN EXAM: no rashes or lesions noted Course Vital Signs: Vital signs: Vital Signs Temperature 97.8 F 05/09/23 14:14 Pulse Rate 98 05/09/23 15:19 Respiratory Rate 16 05/09/23 14:14 Blood Pressure 132/78 05/09/23 15:19 Pulse Oximetry 99 05/09/23 15:19 Oxygen Delivery Me thod Room Air 05/09/23 15:19 Oxygen Flow Rate 3 05/09/23 14:14 MDM - COVID Medical Decision Making Patient is approximately 3 and half weeks post contraction of the COVID virus. She did take Paxlovid, steroids. She also took a round of Bactrim which she finished last week. The Bactrim was for a UTI that she happened to have concurrently. She presents with a sort of biphasic presentation where she improved and then got worse. She is having increased discolored sputum, weakness, lightheadedness, poor appetite. She has not had a fever. She is not hypoxic on her baseline oxygen supplementation. She does have crackles in the left lung base. I think that pulmonary embolism is less likely although with COVID infection we must at least consider this. I talked to her a little bit about this because we were on the fence about getting a D-dimer. Ultimately we decided to proceed. I am also going to do a 2 view chest x-ray as I think community-acquired bacterial pneumonia is more likely update Chest x-ray shows some groundglass opacity in the left mid and lower lung sections. No consolidative pneumonia. White blood cell count is normal. D- dimer was a risk and age-adjusted and result is a low suspicion for PE. Discussed with patient and and we are going to forego CTA today. I Britta put the patient on doxycycline given her chronic lung disease and hypoxia with biphasic presentation where she got better and then got worse. I explained that it could still be viral or even fungal but that we will get a treat with doxycycline and she will need to follow her clinical course. I will also add some guaifenesin as an expectorant. Follow-up PCP. Patient appropriate for discharge. Lab Data 05/09/23 14:47 05/09/23 14:47 Laboratory Results WBC 9.76 10^3/uL (3.29-11.43) 05/09/23 14:47 RBC 4.05 10^6/uL (3.85-5.65) 05/09/23 14:47 Hgb 12.10 g/dL (11.27-16.99) 05/09/23 14:47 Hct 38.6 % (36-47) 05/09/23 14:47 MCV 95.3 fl (85-98) 05/09/23 14:47 MCH 29.9 pg (27-33) 05/09/23 14:47 MCHC 31.3 g/dL (30-55) 05/09/23 14:47 RDW 22.5 % (12.1-15.1) H 05/09/23 14:47 Plt Count 265 10^3/cmm (157-399) 05/09/23 14:47 MPV 9.1 fL (7.4-10.4) 05/09/23 14:47 Neut % (Auto) 72.3 % 05/09/23 14:47 Lymph % (Auto) 14.0 % 05/09/23 14:47 Taylor % (Auto) 11.8 % 05/09/23 14:47 Eos % (Auto) 1.5 % 05/09/23 14:47 Baso % (Auto) 0.1 % 05/09/23 14:47 Neut # (Auto) 7.05 10^3/uL (1.8-7.7) 05/09/23 14:47 Lymph # (Auto) 1.4 10^3/uL (0.8-4.8) 05/09/23 14:47 Taylor # (Auto) 1.2 10^3/uL (0.2-0.9) H 05/09/23 14:47 Eos # (Auto) 0.2 10^3/uL (0.0-0.8) 05/09/23 14:47 Baso # (Auto) 0.0 10^3/uL (0.0-0.1) 05/09/23 14:47 Nucleated RBC % (auto) 0 % 05/09/23 14:47 Nucleated RBCs # 0.0 /100WBC 05/09/23 14:47 D-Dimer 0.78 ug/mLFEU (0-0.59) H 05/09/23 14:47 Sodium 137 mmol/L (136-145) 05/09/23 14:47 Potassium 3.9 mmol/L (3.5-5.1) 05/09/23 14:47 Chloride 103 mmol/L (98-107) 05/09/23 14:47 Carbon Dioxide 26 mmol/L (22-29) 05/09/23 14:47 Anion Gap 11.9 (5-19) 05/09/23 14:47 BUN 8 mg/dL (8-23) 05/09/23 14:47 Creatinine 1.0 mg/dL (0.5-0.9) H 05/09/23 14:47 GFR Calculation 54.8 mL/min (90-130) L 05/09/23 14:47 Glucose 91 mg/dL (65-115) 05/09/23 14:47 Calculated Osmolality 282 mOsm/kg (285-295) L 05/09/23 14:47 Calcium 8.5 mg/dL (8.5-10.5) 05/09/23 14:47 Total Bilirubin 0.3 mg/dL (0.15-1.2) 05/09/23 14:47 AST 35 U/L (0-32) H 05/09/23 14:47 ALT 41 U/L (0-33) H 05/09/23 14:47 Alkaline Phosphatase 177 U/L (35-105) H 05/09/23 14:47 Total Protein 6.5 g/dL (6.6-8.7) L 05/09/23 14:47 Albumin 3.9 g/dL (3.5-5.2) 05/09/23 14:47 Globulin 2.6 g/dL (1.3-4.6) 05/09/23 14:47 SARS-CoV-2 Antigen (Rapid) Negative (Negative) 11/26/21 09:30 Nasal/Oral Coronavirus 2019 PCR Not detected 10/05/20 15:47 SARS-CoV-2 (PCR) Not detected (NOT DETECT) 07/21/22 12:00 Coronavirus Type 229E (PCR) Not detected (NOT DETECT) 07/21/22 12:00 All radiology interpretation(s) finalized by discharge ED provider radiology interpretation(s): groundglass opacity in the left lower and left mid portions of the lung Discharge Plan Discharge Patient Disposition: Home Clinical Impression: Pneumonia Qualifiers: Pneumonia type: due to unspecified organism Laterality: left Condition: Stable Prescriptions: New doxycycline hyclate 100 mg capsule 100 mg PO BID 10 Days Qty: 20 0RF Mucinex 600 mg tablet extended release 12hr 600 mg PO BID PRN (Reason: chest congestion) Qty: 14 0RF No Action (DME) oxygen-air delivery systems Device See Rx Instructions .ROUTE .MEDSUPPLY Qty: 1 Rx Instructions: As directed ascorbic acid (vitamin C) 1,000 mg tablet 1 g PO QAM cholecalciferol (vitamin D3) [Vitamin D3] 25 mcg (1,000 unit) tablet,chewable 25 mcg PO QAM magnesium 200 mg tablet 400 mg PO QAM clonazepam 1 mg tablet 1 mg PO DAILY Qty: 30 5RF pregabalin [Lyrica] 25 mg capsule 25 mg PO BID Qty: 60 2RF guaifenesin [Mucinex] 600 mg tablet extended release 12hr 600 mg PO BID PRN (Reason: cough) Qty: 20 0RF albuterol sulfate 90 mcg/actuation HFA aerosol inhaler 1 inh inhalation Q6H PRN (Reason: shortness of breath or wheezing) Qty: 8.5 0RF trazodone 150 mg tablet 150 mg PO BEDTIME Qty: 90 3RF Trelegy Ellipta 100-62.5-25 mcg blister with device 1 inh inhalation DAILY Qty: 60 6RF diltiazem HCl 60 mg tablet See Rx Instructions .ROUTE .COMPLEX Qty: 180 3RF Dose Instruction: TAKE 1 TABLET TWICE A DAY Rx Instructions: TAKE 1 TABLET TWICE A DAY benzonatate 200 mg capsule 200 mg PO TID PRN (Reason: cough) Qty: 90 2RF hydrocodone-acetaminophen 5-325 mg tablet 1 tab PO Q6H PRN (Reason: Pain) 30 Days Qty: 90 0RF venlafaxine 150 mg capsule,extended release 24hr 150 mg PO DAILY Discharge Orders: Discharge ED (Routine); Ordered 05/09/23 Ordered By: Julito Gómez Referrals: Escobar Rodriguez DO [Primary Care Provider] - 4-7 days (Left lower pneumonia--rx'd doxycycline) Discharge Diet: Usual diet Discharge Activity: Resume usual activity Patient Instructions: Pneumonia (ED) Coding Level of Care Code ED Slubber Hand for Martha Dickerson
[2023-05-09 14:55] LABS: Basophils % 0.1 %; Eosinophils # 0.2 10^3/uL (0.0-0.8); Eosinophils % 1.5 %; Hematocrit 38.6 % (36-47); Lymphocytes # 1.4 10^3/uL (0.8-4.8); Mean Corpuscular HGB Conc 31.3 g/dL (30-55); Mean Corpuscular Hemoglobin 29.9 pg (27-33); Mean Corpuscular Volume 95.3 fl (85-98); Mean Platelet Volume 9.1 fL (7.4-10.4); Monocytes # 1.2 10^3/uL (0.2-0.9); Monocytes % 11.8 %; Neutrophils # 7.05 10^3/uL (1.8-7.7); Neutrophils % 72.3 %; Nucleated Red Blood Cells % 0 %; Platelet Count 265 10^3/cmm (157-399); Red Blood Count 4.05 10^6/uL (3.85-5.65); Red Cell Distribution Width 22.5 % (12.1-15.1); White Blood Count 9.76 10^3/uL (3.29-11.43)
[2023-05-09 15:09] LABS: D Dimer 0.78 ug/mLFEU (0-0.59)
[2023-05-09] MEDS: sodium chloride 0.9% 1,000 ML 999 ML IV (15:10)
[2023-05-09 15:11] LABS: Albumin Level 3.9 g/dL (3.5-5.2); Carbon Dioxide 26 mmol/L (22-29); Total Bilirubin 0.3 mg/dL (0.15-1.2)
[2023-05-09 15:17] LABS: Alanine Aminotransferase 41 U/L (0-33); Alkaline Phosphatase 177 U/L (35-105); Aspartate Amino Transferase 35 U/L (0-32); Calcium 8.5 mg/dL (8.5-10.5); Glomerular Filtration Rate 54.8 mL/min (90-130); Glucose 91 mg/dL (65-115)
[2023-05-09 15:19] VITALS: BP 132/78; PULSE 98; O2SAT 99
[2023-05-09 15:19] LABS: Anion Gap 11.9 (5-19); Blood Urea Nitrogen 8 mg/dL (8-23); Chloride 103 mmol/L (98-107); Globulin 2.6 g/dL (1.3-4.6); Osmolality Calculated 282 mOsm/kg (285-295); Potassium 3.9 mmol/L (3.5-5.1); Sodium 137 mmol/L (136-145); Total Protein 6.5 g/dL (6.6-8.7)
[2023-05-09] MEDS: doxycycline 100 mg Tablet PO (15:42)
[2023-05-09 15:45] VITALS: O2SAT 98
== END 2023-05-09 16:15 | disposition home or self-care (01) ==
PROVIDERS: Emergency Provider Emergency Medicine; PCP Family Medicine
DX: J44.0 Chronic obstructive pulmonary disease with (acute) lower respiratory infection (principal); J18.9 Pneumonia, unspecified organism; Z87.891 Personal history of nicotine dependence
CPT/HCPCS: 36415; 71046; 80053; 85025; 85378; 96360; 99284; J7030

== ENCOUNTER → 2023-05-30 08:11 | Outpatient (BNVA) | payer MEDICARE, OTHER, SELFPAY | PROVIDERS: PCP Family Medicine; Visit Provider Internal Medicine Pulmonary Disease | DX: J44.9 Chronic obstructive pulmonary disease, unspecified (principal); J96.11 Chronic respiratory failure with hypoxia; R91.1 Solitary pulmonary nodule; Z99.81 Dependence on supplemental oxygen; Z90.2 Acquired absence of lung [part of]; Z87.891 Personal history of nicotine dependence | CPT/HCPCS: 99214 ==

== ENCOUNTER → 2023-06-13 09:51 | Outpatient (BNVA) | payer MEDICARE, OTHER, SELFPAY | PROVIDERS: PCP Family Medicine; Visit Provider Nurse Practitioner Family | DX: R39.9 Unspecified symptoms and signs involving the genitourinary system (principal); R82.90 Unspecified abnormal findings in urine | CPT/HCPCS: 81000 ==

== ENCOUNTER → 2023-06-28 10:17 | Outpatient (BNVA) | payer MEDICARE, OTHER, SELFPAY | PROVIDERS: PCP Family Medicine; Visit Provider Student in an Organized Health Care Education/Training Program | DX: M18.0 Bilateral primary osteoarthritis of first carpometacarpal joints (principal); R20.0 Anesthesia of skin | CPT/HCPCS: 20600; 73130; 99214; J3301; J3490 ==

== ENCOUNTER → 2023-07-02 15:23 | Outpatient (BNVA) | payer MEDICARE, OTHER, SELFPAY | PROVIDERS: PCP Family Medicine; Visit Provider Orthopaedic Surgery | DX: M54.50 Low back pain, unspecified (principal) | CPT/HCPCS: 72100; 99214 ==

== ENCOUNTER 2023-07-16 11:30 | Outpatient (CLI) | payer MEDICARE, OTHER, SELFPAY | END 2023-07-16 11:31 | disposition home or self-care (01) | LOC: SLEEP 07-17 11:27 | PROVIDERS: PCP Family Medicine; Visit Provider Family Medicine | DX: J96.11 Chronic respiratory failure with hypoxia (principal); J44.9 Chronic obstructive pulmonary disease, unspecified | CPT/HCPCS: G0399 ==

== ENCOUNTER 2023-07-24 13:00 | Outpatient (CLI) | payer MEDICARE, OTHER, SELFPAY ==
--- NOTE | 2023-07-24 13:00 | IR_ITS ---
WS: [id number] LUMBAR MYELOGRAM HISTORY: lumbar pain, back pain for 2 years. COMPARISON: 07/02/2023 FLUOROSCOPY TIME: 1min [id number] # of spot films: 8 Procedure, risks and complications were explained to the patient. Risks including bleeding, infection , headaches, allergic reaction and seizures. Consent has been obtained. With the patient in prone position the skin over the lumbar region is cleansed with ChloraPrep and an esthetized with lidocaine. 22-gauge spinal needle is inserted into the thecal sac at the appropriate level determined by fluoroscopy. Omnipaque 240; 12 ml is injected slowly under fluoroscopy with no co mplications. Needle bevel is perpendicular to the longitudinal fibers of the dura. Stylet is reinsert ed prior to removal of the needle. Patient tolerated the procedure well. Patient will proceed to CT f or further evaluation. Good injection of the thecal sac. Mild loss of height at L3. Good distention of the subarachnoid spac e with contrast. L4 anterolisthesis by 3 mm. Calcification in the aorta. Prior cholecystectomy. IMPRESSION: 1. Mild loss of height at L3. 2. L4 anterolisthesis by [address] lumbar myelogram to follow.
--- NOTE | 2023-07-24 13:06 | CT_ITS ---
WS: [id number] CT MYELOGRAM LUMBAR SPINE HISTORY: lumbar pain TECHNIQUE: Contiguous 2.0 mm axial imaging performed from T12 through the mid sacral level. Bone and soft tissue windows reviewed. Sagittal and coronal reformats are submitted and reviewed. DLP: 349.[address] scans at [facility] use at least one of these dose optimization techniques: automated e xposure control; mA and/or kV adjustment per patient size (includes targeted exams where dose is matc hed to clinical indication); or iterative reconstruction. COMPARISON: None available. Very slight increase in the lumbar lordosis. 15% loss of height involving L2 with sclerosis along the superior endplate. Otherwise vertebral body height is normal. Facet joints are narrowed. L1-L2: Very shallow LEFT foraminal disc protrusion no stenosis. L2-L3: Moderate annular disc bulging, ligamentum flavum and facet arthritis. Mild central stenosis an d encroachment upon the subarticular recesses. L3-L4: Mild annular disc bulging, ligamentum flavum and facet arthritis. Mild central and bilateral s ubarticular recess encroachment. L4-L5: Broad-based disc bulging centrally encroaching upon the ventral thecal sac. LEFT hemilaminecto my defect. There is disc contacting the traversing L5 nerve roots. Ligamentum flavum hypertrophy. The re is mild encroachment upon the subarticular recesses and mild narrowing of the LEFT foramen. L5-S1: Central broad-based disc bulging contacting but not displacing the S1 nerve roots. Mild forami nal narrowing. Infrarenal abdominal aortic aneurysm 3.4 cm. Prior cholecystectomy. IMPRESSION: 1. Remote appearing 50% compression fracture at L3 without retropulsion. 2. L1-2: Shallow LEFT foraminal disc protrusion with no stenosis. 3. L2-3 and L3-4: Very mild central and subarticular recess encroachment by disc disease. 4. L4-5: Broad-based disc bulging centrally encroaching upon the ventral thecal sac. Mild encroachme nt upon the subarticular recesses and mild LEFT foraminal narrowing. 5. L4-5 LEFT hemilaminectomy defect. 6. L5-S1: Central broad-based disc bulging contacting but not displacing the S1 nerve roots. Mild fo raminal narrowing. 7. Abdominal aortic aneurysm 3.4 cm.
== END 2023-07-24 13:01 | disposition home or self-care (01) ==
LOC: RAD 13:00
PROVIDERS: PCP Family Medicine; Visit Provider Orthopaedic Surgery
DX: M51.26 Other intervertebral disc displacement, lumbar region (principal); M51.37 Other intervertebral disc degeneration, lumbosacral region; I71.40 Abdominal aortic aneurysm, without rupture, unspecified
CPT/HCPCS: 62304; 72132; Q9966

== ENCOUNTER → 2023-08-13 14:48 | Outpatient (BNVA) | payer MEDICARE, OTHER, SELFPAY | PROVIDERS: PCP Family Medicine; Visit Provider Orthopaedic Surgery | DX: M48.062 Spinal stenosis, lumbar region with neurogenic claudication (principal); Z01.812 Encounter for preprocedural laboratory examination; Z79.899 Other long term (current) drug therapy | CPT/HCPCS: 36415; 80053; 81001; 85025; 87077; 87086; 87186; 99214 ==

== ENCOUNTER 2023-08-28 12:31 | Day surgery (SDC) | payer MEDICARE, OTHER, SELFPAY ==
[2023-08-28] VITALS (10 sets, daily range): BP systolic 110–144; BP diastolic 67–84; PULSE 91–109; RESP 18–26; TEMP 36.2–36.3; O2SAT 90–100; BMI 25.8
--- NOTE | 2023-08-28 | XR_ITS ---
WS: [id number] Lumbar spine, C ARM fluoroscopy views, 08/28/2023 Clinical Data: JINA PICS Comparison: Lumbar spine, 07/02/2023 Findings: Dr. Tello performed a lumbar decompression. Impression: Lumbar decompression.
[2023-08-28] MEDS: sodium chloride 0.9% 1,000 ML 30 ML IV (13:07)
--- NOTE | 2023-08-28 14:43 | P.ANESASSM_ITS ---
Pre-Anesthetic Assessment Height/Weight: Height 1.75 m Weight 79.379 kg Temp Pulse Resp BP Pulse Ox O2 Del Method 97.3 F L 92 18 116/75 90 Room Air 08/28/23 12:52 08/28/23 12:52 08/28/23 12:52 08/28/23 12:52 08/28/23 12:52 08/28/23 12:55 Preop Diagnosis: Lumbar stenosis neurogenic claudication Operation Date: 08/28/23 14:15 Proposed Procedures p Lumbar Spine Decompression Lumbar Decompression/ L-4-5(Not Applicable) - Vicente Tello, DO Familial anesthetic complications: none Was Beta Jaylen taken within 24 hours: N/A Was Clonidine taken within 24 hours: N/A Last intake: Intake Last Liquid Date 08/27/23 Last Liquid Time 16:00 Last Solid Date 08/27/23 Last Solid Time 12:00 Social No alcohol and No tobacco Exam alert, oriented x 3 and regular rate & rhythm Airway Submandibular: within normal limits Cervical ROM: within normal limits Mallampati: Class II Pulmonary Chronic Obstructive Pulmonary Disease CV/HEM Anemia, Arrythmia and Hypertension Musc/skel Lower Back Pain and Osteoarthritis/DJD chronic pain Neuropsych Anxiety, Depression and Headache Anesthetic Plan ASA status: 3 Anesthesia: General Medications/Allergies Home Medications Medication Instructions Recorded Confirmed Last Taken Type oxygen-air delivery systems ##1 08/13/19 08/27/23 08/27/23 History ascorbic acid (vitamin C) 1,000 mg 1 g PO QAM 01/16/22 08/27/23 08/27/23 History tablet cholecalciferol (vitamin D3) 25 25 mcg PO QAM 01/16/22 08/27/23 08/27/23 History mcg (1,000 unit) chewable tablet (Vitamin D3) magnesium 200 mg tablet 400 mg PO QAM 01/16/22 08/27/23 08/27/23 History albuterol sulfate 90 mcg/actuation 1 inh inhalation Q6H PRN shortness 05/28/22 08/27/23 08/27/23 Rx aerosol inhaler of breath or wheezing #8.5 grams fluticasone fur. 100 mcg-umeclid 1 inh inhalation DAILY #60 ea 01/24/23 08/27/23 08/27/23 Rx 62.5 mcg-vilant 25 mcg inhalat.powder (Trelegy Ellipta) trazodone 150 mg tablet 150 mg PO BEDTIME #90 tabs 01/28/23 08/27/23 08/27/23 Rx clonazepam 1 mg tablet 1 mg PO DAILY #30 tabs 02/27/23 08/27/23 08/27/23 Rx diltiazem HCl 60 mg tablet 60 mg PO BID #180 tabs 05/24/23 08/27/23 08/28/23 08:00 Rx hydrocodone 5 mg-acetaminophen 325 1 tab PO Q6H PRN Pain 30 days #90 08/01/23 08/27/23 08/27/23 Rx mg tablet tabs pregabalin 25 mg capsule (Lyrica) 25 mg PO BID #60 caps 08/26/23 08/27/23 08/27/23 Rx sulfamethoxazole 800 1 tab PO BID 7 days #14 tabs 08/27/23 08/28/23 08/28/23 08:00 Rx mg-trimethoprim 160 mg tablet (Bactrim DS) venlafaxine 150 mg 150 mg PO DAILY 08/27/23 08/27/23 08/27/23 History capsule,extended release 24 hr Allergies Allergy/AdvReac Type Severity Reaction Status Date / Time Penicillins Allergy Severe ALGY-Hives Verified 08/28/23 12:48 iron [From Venofer] Allergy ADR-Hyperte Verified 08/28/23 12:48 nsion milk Allergy ADR-Vomitin Verified 08/28/23 12:48 g meperidine [From Demerol] AdvReac Severe ADR-Vomitin Verified 08/28/23 12:48 g Current Medications Generic Name Dose Route Start Last Admin Trade Name Freq PRN Reason Stop Dose Admin Sodium Chloride 1,000 mls @ 30 mls/hr 08/28/23 12:45 08/28/23 13:07 Sodium Chloride 0.9% IV 08/29/23 12:44 30 mls/hr .Q24H MESSI Administration PFSH Anesthesia Medical History No pertinent past medical history neghx: htn,dm,thyroid,dvt/pe PCP: Dr. Rodriguez Chronic insomnia Iron deficiency anemia GERD (gastroesophageal reflux disease) Spondylolisthesis at L4-L5 level Hemorrhagic gastritis Nontuberculous mycobacterial disease of lung COPD (chronic obstructive pulmonary disease) Depression with anxiety Chronic migraine without aura, intractable, with status migrainosus Surgical History S/P arthroscopic surgery of right knee (2014) History of pyloric stenosis as a child Surgery at age 3 months History of esophagogastroduodenoscopy (10/10/20) Hx of colonoscopy (10/10/20) History of back surgery (12/29/21) Bilateral L4/5 laminectomy with partial facetectomies History of cataract surgery (12/2021) Bilateral cataract excisions H/O hysterectomy with unilateral oophorectomy (1988) TVH with one ovary spared. Performed due to bleeding and concern of cancer; was benign. Performed in [facility]. History of cholecystectomy (1982) H/O shoulder surgery History of lobectomy of lung (2003) Left upper lobectomy for MAC Family History Mother Stroke Dementia Heart disease Father CAD (coronary artery disease) Hypertension Heart disease Denies family history of Colon cancer Ovarian cancer Prostate cancer Diabetes Clotting disorder Hyperlipidemia Psychiatric illness Chronic kidney disease (CKD) Breast cancer Suicide Anesthesia complication Bleeding disorder Lung disease Cancer Uterine cancer Thyroid disease Social History Smoking and tobacco/nicotine status: former use of tobacco/nicotine Quit status (tobacco/nicotine): has quit using Year quit tobacco: 2003 - >0.5 ppd x 15 Year Alcohol intake: never Lives independently: Yes Marital status: Female Reproductive History Spontaneous abortions: No Data Anesthesia Cardiac Studies: Echocardiogram 11/27/21 Echocardiogram Ultrasound 01/06/20
--- NOTE | 2023-08-28 14:56 | W.PM.OPSUD ---
Surgery/Procedure H&P Update DATE OF PROCEDURE: August 28, 2023 DATE H&P PERFORMED: 08/13/23 H&P UPDATE INFORMATION: I have reviewed H&P completed within last 30 days, I have examined patient prior to procedure and No changes to prior documentation PREOP DIAGNOSIS: Lumbar stenosis neurogenic claudication PLANNED PROCEDURE: Operation Date: 08/28/23 14:15 Proposed Procedures p Lumbar Spine Decompression Lumbar Decompression/ L-4-5(Not Applicable) - Vicente Tello DO
[2023-08-28] MEDS: ceFAZolin 2,000 MG in sodium chloride 0.9% (plus) 50 ML 100 MG IV (15:31)
[2023-08-28] MEDS: lidocaine-epi 1% 20 mL INJ INJECTION (16:12)
--- NOTE | 2023-08-28 16:41 | PM.OP ---
Operative Report Date of procedure: August 28, 2023 Pre-op diagnosis: Lumbar stenosis with neurogenic claudication Post-op diagnosis: same Procedure done: 1. L4-5 right side laminectomy with partial facetectomy Surgeon: Vicente Tello DO Estimated blood loss (mL): 5 Procedure: 1. L4-5 right side laminectomy with partial facetectomy Patient is brought to the operative suite. After undergoing anesthesia they are placed in the prone position. All areas of impingement are well padded. Patient is then prepped and draped in the normal sterile fashion. A skin incision is made over the L4-5 level. This is confirmed under c-arm guidance. A series of dilators are passed and the tubular retractor is docked on the L4 lamina. A bovie is used to clear the soft tissue off the lamina and the L 4/5 facet joint. A high speed valdemar is then used to perform the laminectomy and take down the medial aspect of the L 4/5 facet joint. A kerrison rongeure was then used to take down the remaining lamina and smooth the edge of the laminectomy up to the point where the ligamentum flavum attaches. Attention was then brought to the medial aspect of the facet joint. The remaining medial aspect of the superior and inferior aspect of the facet joint were taken down with the kerrison from the pedicle of L4 to L 5. The facet joint had significant hypertrophy. Attention was then brought to the Ligamentum Flavum. The ligament was taken down from the lamina of L4 to L5 and out medially to the remaining facet joint. The ligament was scarred down to the dura. The dura was then exposed. The dura was in good repair. The L for nerve was then traced with a curette out the L4/5 foramen and found to be adequately decompressed. The L 5 nerve was traced with a curette around the L5 pedicle. The lateral recess was opened with a kerrison helping to further decompress the L5 nerve. Wound is then irrigated copiously with saline and surgiflo is used to stop any bleeding. The tubular retractor is removed and the wound is closed with vicryl and monocryl suture. Glue is then used to protect the wound. A sterile dressing is then placed. Patient was then placed in the supine position and transferred to the PACU in stable condition.
--- NOTE | 2023-08-28 16:58 | ANE.PACU2 ---
Inpatient post-anesthesia follow up: Airway intact: Yes Vital signs: Temperature 97.2 F Pulse Rate 105 Respiratory Rate 24 Blood Pressure 126/84 Pulse Oximetry 93 Oxygen Delivery Me thod Room Air Oxygen Flow Rate Fraction of Inspir ed Oxygen Hydration adequate: Yes Nausea and vomiting: No Pain level: 2 Mental status: Baseline
[2023-08-28] MEDS: HYDROcodone-acetaminophen 5-325 mg Tablet 1 TAB PO (17:30)
== END 2023-08-28 17:40 | disposition home or self-care (01) ==
PROVIDERS: PCP Family Medicine; Visit Provider Orthopaedic Surgery
PROC: (CPT 63005; principal; 2023-08-28 14:05)
DX: M48.062 Spinal stenosis, lumbar region with neurogenic claudication (principal); J44.9 Chronic obstructive pulmonary disease, unspecified; I10 Essential (primary) hypertension; G89.29 Other chronic pain; K21.9 Gastro-esophageal reflux disease without esophagitis; Z87.891 Personal history of nicotine dependence
CPT/HCPCS: 63047; 72020; 76000; J0690; J2250; J2704; J3010; J3490; J7030

== ENCOUNTER → 2023-09-10 09:46 | Outpatient (BNVA) | payer MEDICARE, OTHER, SELFPAY | PROVIDERS: PCP Family Medicine; Visit Provider Specialist | DX: G56.03 Carpal tunnel syndrome, bilateral upper limbs (principal); M18.0 Bilateral primary osteoarthritis of first carpometacarpal joints | CPT/HCPCS: 95911 ==

== ENCOUNTER → 2023-09-17 13:19 | Outpatient (BNVA) | payer MEDICARE, OTHER, SELFPAY | PROVIDERS: PCP Family Medicine; Visit Provider Orthopaedic Surgery | DX: Z98.890 Other specified postprocedural states (principal); G56.23 Lesion of ulnar nerve, bilateral upper limbs; G56.01 Carpal tunnel syndrome, right upper limb | CPT/HCPCS: 99024; 99214 ==

== ENCOUNTER → 2023-10-15 08:12 | Outpatient (BNVA) | payer MEDICARE, OTHER, SELFPAY | PROVIDERS: PCP Family Medicine; Referring Provider Nurse Practitioner Family; Visit Provider Student in an Organized Health Care Education/Training Program | DX: S43.401A Unspecified sprain of right shoulder joint, initial encounter; X58.XXXA Exposure to other specified factors, initial encounter | CPT/HCPCS: 73030; 99213 ==

== ENCOUNTER 2023-10-24 06:54 | Day surgery (SDC) | payer MEDICARE, OTHER, SELFPAY ==
[2023-10-24] VITALS (10 sets, daily range): BP systolic 113–138; BP diastolic 62–88; PULSE 58–81; RESP 14–19; TEMP 36.1–36.6; O2SAT 90–98
[2023-10-24] MEDS: sodium chloride 0.9% 1,000 ML 30 ML IV (07:29)
[2023-10-24] MEDS: scopolamine 1.5 Patch 1 PATCH TRANSDERMA (07:30)
[2023-10-24] MEDS: acetaminophen 1,000 MG/100 ML PIGGYBACK 400 MG IV (07:30)
[2023-10-24] MEDS: ketorolac 30 mg/mL INJ IVP (07:30)
--- NOTE | 2023-10-24 08:43 | P.ANESASSM_ITS ---
Pre-Anesthetic Assessment Height/Weight: Height 1.75 m Temp Pulse Resp BP Pulse Ox O2 Del Method 97.8 F 81 17 113/62 93 Room Air 10/24/23 07:25 10/24/23 07:25 10/24/23 07:25 10/24/23 07:25 10/24/23 07:25 10/24/23 07:25 Operation Date: 10/24/23 08:35 Proposed Procedures p Carpal Tunnel Release(Right) - Chance Ibrahim DO s Guyon Canal Release(Right) - Chance Ibrahim DO Familial anesthetic complications: none Was Beta Jaylen taken within 24 hours: N/A Was Clonidine taken within 24 hours: N/A Last intake: Intake Last Liquid Date 10/23/23 Last Liquid Time 17:30 Last Solid Date 10/23/23 Last Solid Time 17:30 Social No alcohol and No tobacco Exam alert, oriented x 3, clear to auscultation bilaterally and regular rate & rhythm Airway Submandibular: within normal limits Cervical ROM: within normal limits Mallampati: Class II Dentition: false Pulmonary Chronic Obstructive Pulmonary Disease CV/HEM Arrythmia Musc/skel Lower Back Pain and Osteoarthritis/DJD Neuropsych Anxiety, Depression and Neuropathy Anesthetic Plan ASA status: 3 Anesthesia: General Medications/Allergies Home Medications Medication Instructions Recorded Confirmed Last Taken Type oxygen-air delivery systems ##1 08/13/19 10/15/23 08/27/23 History ascorbic acid (vitamin C) 1,000 mg 1 g PO QAM 01/16/22 10/23/23 10/23/23 History tablet cholecalciferol (vitamin D3) 25 25 mcg PO QAM 01/16/22 10/23/23 10/23/23 History mcg (1,000 unit) chewable tablet (Vitamin D3) magnesium 200 mg tablet 400 mg PO QAM 01/16/22 10/23/23 10/23/23 History albuterol sulfate 90 mcg/actuation 1 inh inhalation Q6H PRN shortness 05/28/22 10/24/23 10/22/23 Rx aerosol inhaler of breath or wheezing #8.5 grams trazodone 150 mg tablet 150 mg PO BEDTIME #90 tabs 01/28/23 10/23/23 10/23/23 Rx diltiazem HCl 60 mg tablet 60 mg PO BID #180 tabs 05/24/23 10/23/23 10/23/23 Rx pregabalin 25 mg capsule (Lyrica) 25 mg PO BID #60 caps 08/26/23 10/23/23 10/23/23 Rx venlafaxine 150 mg 150 mg PO DAILY 08/27/23 10/23/23 10/23/23 History capsule,extended release 24 hr clonazepam 1 mg tablet 1 mg PO DAILY #90 tabs 09/03/23 10/23/23 10/23/23 Rx hydrocodone 10 mg-acetaminophen 1 tab PO Q6H PRN pain 30 days #120 10/07/23 10/23/23 10/22/23 Rx 325 mg tablet tabs fluticasone fur. 100 mcg-umeclid 1 inh inhalation DAILY PRN 10/23/23 10/23/23 10/22/23 History 62.5 mcg-vilant 25 mcg Shortness Of Breath inhalat.powder (Trelegy Ellipta) Allergies Allergy/AdvReac Type Severity Reaction Status Date / Time Penicillins Allergy Severe ALGY-Hives Verified 10/24/23 07:10 iron [From Venofer] Allergy ADR-Hyperte Verified 10/24/23 07:10 nsion meperidine [From Demerol] AdvReac Severe ADR-Vomitin Verified 10/24/23 07:10 g Current Medications Generic Name Dose Route Start Last Admin Trade Name Freq PRN Reason Stop Dose Admin Sodium Chloride 1,000 mls @ 30 mls/hr 10/24/23 07:30 10/24/23 07:29 Sodium Chloride 0.9% IV 10/25/23 07:29 30 mls/hr .Q24H MESSI Administration PFSH Anesthesia Medical History No pertinent past medical history neghx: htn,dm,thyroid,dvt/pe PCP: Dr. Rodriguez Chronic insomnia Iron deficiency anemia GERD (gastroesophageal reflux disease) Spondylolisthesis at L4-L5 level Hemorrhagic gastritis Nontuberculous mycobacterial disease of lung COPD (chronic obstructive pulmonary disease) Depression with anxiety Chronic migraine without aura, intractable, with status migrainosus Surgical History S/P arthroscopic surgery of right knee (2014) History of pyloric stenosis as a child Surgery at age 3 months History of esophagogastroduodenoscopy (10/10/20) Hx of colonoscopy (10/10/20) History of back surgery (12/29/21) Bilateral L4/5 laminectomy with partial facetectomies History of cataract surgery (12/2021) Bilateral cataract excisions H/O hysterectomy with unilateral oophorectomy (1988) TVH with one ovary spared. Performed due to bleeding and concern of cancer; was benign. Performed in [facility]. History of cholecystectomy (1982) H/O shoulder surgery History of lobectomy of lung (2003) Left upper lobectomy for MAC Family History Mother Stroke Dementia Heart disease Father CAD (coronary artery disease) Hypertension Heart disease Denies family history of Colon cancer Ovarian cancer Prostate cancer Diabetes Clotting disorder Hyperlipidemia Psychiatric illness Chronic kidney disease (CKD) Breast cancer Suicide Anesthesia complication Bleeding disorder Lung disease Cancer Uterine cancer Thyroid disease Social History Smoking and tobacco/nicotine status: former use of tobacco/nicotine Quit status (tobacco/nicotine): has quit using Year quit tobacco: 2003 - >0.5 ppd x 15 Year Alcohol intake: never Lives independently: Yes Marital status: Female Reproductive History Spontaneous abortions: No Data Anesthesia Cardiac Studies: Echocardiogram 11/27/21 Echocardiogram Ultrasound 01/06/20
--- NOTE | 2023-10-24 09:01 | P.HPUD_ITS ---
Surgery/Procedure H&P Update DATE OF PROCEDURE: October 24, 2023 DATE H&P PERFORMED: 10/15/23 H&P UPDATE INFORMATION: I have reviewed H&P completed within last 30 days, I have examined patient prior to procedure and No changes to prior documentation CHANGES TO PREVIOUS DOCUMENTATION: Patient was initially seen in surgery booked on 09/17/2023 for right carpal tunnel release and right wrist Guyon canals release. No change in HPI since this v isit. I did see her for a shoulder injury on 10/15/2023 and at that point in time updated H&P prior to surgery with no change. Plans to proceed with surgical intervention today she understands the ins and outs procedure the risk benefits complication alternatives surgery and through shared decision make elects proceed with surgical intervention today all questions answered. 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
[2023-10-24] MEDS: ceFAZolin 2,000 MG in sodium chloride 0.9% (plus) 50 ML 100 MG IV (09:07)
[2023-10-24] MEDS: ROPivacaine 0.5% SDV 30 mL 25 MG INJECTION (09:37)
[2023-10-24] MEDS: lidocaine-epi 1% 20 mL INJ 5 ML INJECTION (09:37)
--- NOTE | 2023-10-24 10:20 | P.BOP_ITS ---
Date of Procedure: 10/24/2023 Surgeon: Chance Ibrahim DO Manager Performance Improvement(s): None Procedure(s) performed: Right carpal tunnel release Right ulnar nerve release at the wrist at Guyon's canal Findings of the procedure(s): Patient found to have right carpal tunnel syndrome and right ulnar nerve entrapment at the wrist at Guyon's canal underwent procedure as planned with issues or complications placed in a volar splint and will follow-up in 2 weeks. 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
--- NOTE | 2023-10-24 10:21 | P.OP_ITS ---
Operative Report Date of procedure: October 24, 2023 Surgeon: Chance Ibrahim DO Procedure: Preoperative diagnosis Right carpal tunnel syndrome Right ulnar nerve entrapment at the wrist Postop Diagnosis: same Procedure done: Right carpal tunnel release Right ulnar nerve release at Guyon's canal (wrist) Surgeon: Chance Ibrahim DO Estimated blood loss: 5mL Tourniquet? 26 minutes IV fluids: 900mL Complications: None Findings: See operative report narrative Condition: stable Disposition: same day Brief History: Patient's been seen and worked up in the outpatient setting and findings consistent with preoperative diagnosis.? Patient has Right Carpal Tunnel Syndrome,Right ulnar entrapment at guyons canal which has been worked up in the outpatient setting has physical exam findings consistent with this. Patient's nerve study consistent with this. Exam findings consistent with preoperative diagnosis. Patient's failed conservative treatment.? As result through shared decision making agreed to proceed with right carpal tunnel release ,?right ulnar nerve release at the wrist. We talked about tx options as nonoperative and operative intervention.? Understands risk benefits complication alternatives surgical nonsurgical treatment options.? Understanding risks pt agrees to proceed with surgical intervention. Understanding these risks pt agrees to proceed with surgery.? Consent obtained in office. Procedure: Patient seen evaluate in the preoperative holding area.? Consent was reviewed and signed with patient.? Correct extremity marked.? Patient seen evaluated by anesthesia department once cleared for surgery was then taken back to the operative suite placed in supine position all bony prominences well-padded patient properly secured to bed.? Right upper extremity placed onto armboard.? Nonsterile tourniquet applied Right upper arm.? Patient then underwent anesthesia per the anesthesia department.? Patient's Right upper extremity was then prepped and draped in standard orthopedic fashion.? Final timeout performed.? Patient received appropriate preoperative antibiotics. Esmarch was used exsanguinate the Right upper extremity.? Tourniquet was insufflated to 250 mmHg. I started with my release of the ulnar nerve at the wrist. An extensive laterally based palmar incision that extended proximal past the wrist crease with a Elena incision was made directly over Guyon's canal. At this point in time incision was made between the Pisa form and hamate to follow neurovascular bundle of Guyon's canal. sharp scalpel incision was subsequently made through skin and then I switched to Littler dissection scissors. At this point in time I dissected down over top guyons canal release the brevis muscle belly along the hypothenar region to obtain access into Guyon's canal. Thick band of fascia was noted proximally just proximal to the wrist crease this was released and made sure there was complete decompression of the ulnar nerve proximally just prior to Guyon's canal subsequently released guyon canal and direct visualization with sharp scalpel excision as well as Littler dissection scissors with care utilizing my call center assistant to protect the neurovascular bundle. At this point in time I continued to perform release of the fascia/the roof of Guyon's canal all the way to its most distal extent and the nerve was found to be completely free and untethered. I then in order to perform release of the deep motor branch I then mobilized my dissection around the ulnar nerve and identified the deep motor branch as it courses towards the under knee fascia connected with the hamate. I then utilized dissection scissors and under direct visualization completed my release carefully of the fascial bands tethering over top of the deep motor branch. At this point in time the ulnar nerve was completely decompressed through Guyon's canal and ulnar nerve had complete laxity with no areas of entrapment or tethering. No masses were noted within the contents of the guyons canal.? This completed the ulnar nerve release at the wrist. Next I then subsequently visualized from the ulnar aspect of the carpal tunnel. Identified the distal extent as well as proximal extent into the antebrachial fascia. As result approaching the carpal tunnel from the ulnar position just above the hook of the hamate made an incision through thickened Transverse carpal ligament. It was noted there was significant entrapment of the median nerve. I then switched to Littler dissection scissors to complete my dissection and release distally with care to protect neurovascular structures distally. The tendons were healthy within the carpal tunnel. No masses were noted. I then carried my dissection proximally utilizing retraction by my call center assistant as well as direct visualization with loupe magnification identify the proximal extent of the carpal tunnel and release this to its entirety as well as identified the median nerve and released the tethering of the antebrachial fascia proximally past the wrist crease into the distal aspect of the forearm with no further evidence of median nerve entrapment. The median nerve overall showed signs of compression and inflammation irritation but overall appeared healthy. ? ?Next the wound bed was thoroughly irrigated.? Tourniquet was deflated.? Hemostasis was satisfactory.? The incision was then closed in standard interrupted mattress fashion.? Dressing was Xeroform 4 x 4's ABD Curlex soft roll and an Jamey wrap has a bulky soft dressing and volar splint. Patient was then awakened from anesthesia and taken to PACU in stable condition. Disposition: Patient taken to PACU in stable condition recovering well.? Patient will receive appropriate discharge instructions as well as pain medication postoperatively.? We will follow-up with me in the office in 2 weeks.? Patient understands agrees with current plan.? All questions answered.? pt understands if any questions or concerns and contact the office for follow-up appointment..
--- NOTE | 2023-10-24 15:04 | ANE.PACU2 ---
Inpatient post-anesthesia follow up: Airway intact: Yes Vital signs: Temperature 97.2 F Pulse Rate 58 Respiratory Rate 18 Blood Pressure 135/68 Pulse Oximetry 96 Oxygen Delivery Me thod Room Air Oxygen Flow Rate 1 Fraction of Inspir ed Oxygen Hydration adequate: Yes Nausea and vomiting: No Pain level: 2 Mental status: Baseline
== END 2023-10-24 11:28 | disposition home or self-care (01) ==
PROVIDERS: PCP Family Medicine; Visit Provider Student in an Organized Health Care Education/Training Program
PROC: (CPT 64721; principal; 2023-10-24 08:25)
PROC: (CPT 64719; 2023-10-24 08:25)
DX: G56.01 Carpal tunnel syndrome, right upper limb (principal); G56.21 Lesion of ulnar nerve, right upper limb; J44.9 Chronic obstructive pulmonary disease, unspecified; K21.9 Gastro-esophageal reflux disease without esophagitis; Z87.891 Personal history of nicotine dependence
CPT/HCPCS: 64718; 64721; J0131; J0690; J1100; J1885; J2405; J2704; J2795; J3010; J7030

== ENCOUNTER → 2023-10-29 08:09 | Outpatient (BNVA) | payer MEDICARE, OTHER, SELFPAY | PROVIDERS: PCP Family Medicine; Visit Provider Orthopaedic Surgery | DX: Z98.890 Other specified postprocedural states (principal) | CPT/HCPCS: 99024 ==

== ENCOUNTER → 2023-11-14 08:01 | Outpatient (BNVA) | payer MEDICARE, OTHER, SELFPAY | PROVIDERS: PCP Family Medicine; Visit Provider Physician Assistant | DX: Z98.890 Other specified postprocedural states (principal) | CPT/HCPCS: 99024 ==

== ENCOUNTER → 2023-11-28 09:25 | Outpatient (BNVA) | payer MEDICARE, OTHER, SELFPAY | PROVIDERS: PCP Family Medicine; Visit Provider Internal Medicine Pulmonary Disease | DX: J22 Unspecified acute lower respiratory infection (principal); J44.9 Chronic obstructive pulmonary disease, unspecified; D64.9 Anemia, unspecified; K29.71 Gastritis, unspecified, with bleeding; J96.11 Chronic respiratory failure with hypoxia; R91.1 Solitary pulmonary nodule; A31.0 Pulmonary mycobacterial infection | CPT/HCPCS: 36415; 71046; 82728; 83540; 83550; 84466; 85025; 99214 ==

== ENCOUNTER → 2023-12-10 08:15 | Outpatient (BNVA) | payer MEDICARE, OTHER, SELFPAY | PROVIDERS: PCP Family Medicine; Visit Provider Orthopaedic Surgery | DX: Z09 Encounter for follow-up examination after completed treatment for conditions other than malignant neoplasm (principal); Z98.890 Other specified postprocedural states | CPT/HCPCS: 99024 ==

== ENCOUNTER 2023-12-27 08:30 | Oncology outpatient (recurring) (ONCR) | payer MEDICARE, OTHER, SELFPAY ==
[2023-12-20 08:58] VITALS: BP 104/62; PULSE 64; RESP 16; TEMP 36.5; O2SAT 97
[2023-12-20] MEDS: sodium chloride 0.9% 250 ML 75 ML IV (09:14)
[2023-12-20] MEDS: ferric carboxy (IVPB) 750 MG in sodium chloride 0.9% (100 ml) 100 ML 345 MG IV (09:16)
[2023-12-20 10:05] VITALS: BP 107/62; PULSE 59; RESP 17; TEMP 35.7; O2SAT 96
[2023-12-27 08:59] VITALS: BP 103/68; PULSE 75; RESP 16; TEMP 36.8; O2SAT 90
[2023-12-27] MEDS: ferric carboxy (IVPB) 750 MG in sodium chloride 0.9% (100 ml) 100 ML 345 MG IV (09:13)
[2023-12-27 09:47] VITALS: BP 101/68; PULSE 73; RESP 16; TEMP 36.2; O2SAT 91
== END 2024-01-12 23:59 | disposition home or self-care (01) ==
PROVIDERS: PCP Family Medicine; Visit Provider Family Medicine
DX: D50.9 Iron deficiency anemia, unspecified (principal)
CPT/HCPCS: 96365; J1439; J7050

== ENCOUNTER → 2023-12-31 10:30 | Outpatient (BNVA) | payer MEDICARE, OTHER, SELFPAY | PROVIDERS: PCP Family Medicine; Visit Provider Physician Assistant | DX: Z98.890 Other specified postprocedural states (principal) | CPT/HCPCS: 99024 ==

== ENCOUNTER 2024-01-07 07:55 | Outpatient (RCR) | payer MEDICARE, OTHER, SELFPAY | END 2024-01-12 23:59 | disposition home or self-care (01) | LOC: SOT 07:55 | PROVIDERS: Visit Provider Physician Assistant | DX: Z47.89 Encounter for other orthopedic aftercare (principal) | CPT/HCPCS: 97022; 97110; 97140; 97165; 97530 ==

== ENCOUNTER 2024-01-13 06:00 | Outpatient (RCR) | payer MEDICARE, OTHER, SELFPAY | END 2024-02-12 23:59 | disposition home or self-care (01) | LOC: SOT 06:00 | PROVIDERS: PCP Family Medicine; Visit Provider Physician Assistant | DX: Z47.89 Encounter for other orthopedic aftercare (principal) | CPT/HCPCS: 97022; 97110; 97140 ==

== ENCOUNTER 2024-01-29 10:46 | Outpatient (CLI) | payer MEDICARE, OTHER, SELFPAY ==
--- NOTE | 2024-01-29 10:55 | XRR_ITS ---
PROCEDURE INFORMATION: Exam: XR Right Hip Exam date and time: 01/29/2024 11:49 AM Age: 73 years old Clinical indication: Hip pain; Right hip; Prior surgery; Surgery date: 6+ months; Surgery type: Spinal fusion; Patient HX: Pain while walking, on the lateral aspect of the hip, x 3 months. ; Additional info: Right hip pain, worsening. TECHNIQUE: Imaging protocol: Radiologic exam of the right hip. Views: 1 view hip with pelvis when performed. COMPARISON: CR XR lumbar spine 2-3V* [id number] 07/02/2023 3:39 PM FINDINGS: Bones/joints: Unremarkable. No acute fracture. Soft tissues: Unremarkable. XR/XR hip RT 2-3V wo/w pel* [id number] IMPRESSION: No acute findings.
== END 2024-01-29 10:47 | disposition home or self-care (01) ==
PROVIDERS: PCP Family Medicine; Visit Provider Family Medicine
DX: M25.551 Pain in right hip (principal); M43.26 Fusion of spine, lumbar region
CPT/HCPCS: 73502

== ENCOUNTER 2024-02-13 06:00 | Outpatient (RCR) | payer MEDICARE, OTHER, SELFPAY | END 2024-03-14 18:00 | disposition home or self-care (01) | LOC: SOT 06:00 | PROVIDERS: PCP Family Medicine; Visit Provider Physician Assistant | DX: Z47.89 Encounter for other orthopedic aftercare (principal) | CPT/HCPCS: 97022; 97110 ==

== ENCOUNTER 2024-02-13 12:58 | Outpatient (CLI) | payer MEDICARE, OTHER, SELFPAY ==
--- NOTE | 2024-02-13 13:04 | MM_ITS ---
WS: [id number] BILATERAL SCREENING DIGITAL TOMOSYNTHESIS MAMMOGRAM WITH CAD HISTORY: SCREENING COMPARISON: 11/02/2022, 04/02/2018 Bilateral CC and MLO views with tomosynthesis and synthetic mammography submitted. Computer aided det ection analyzed. Breast composition: There are scattered areas of fibroglandular density. No suspicious masses, microc alcifications or architectural distortion. Stable benign calcifications and nodules within each breas t. MM/[place] [id number] IMPRESSION: BI-RADS: 2-Benign FOLLOW UP: 1 Year Follow-up
== END 2024-02-13 12:59 | disposition home or self-care (01) ==
PROVIDERS: PCP Family Medicine; Visit Provider Family Medicine
DX: Z12.31 Encounter for screening mammogram for malignant neoplasm of breast (principal)
CPT/HCPCS: 77063; 77067

== ENCOUNTER 2024-03-23 09:40 | Outpatient (CLI) | payer MEDICARE, OTHER, SELFPAY ==
--- NOTE | 2024-03-23 10:00 | MR_ITS ---
WS: [id number] MRA ANGIOGRAPHY [place] HISTORY: Middle cerebral artery aneurysm COMPARISON: 05/29/2019 TECHNIQUE: 3-D MR angiography is performed of the [place]. All images are reviewed including source images. Dominant RIGHT vertebral artery. Basilar artery is patent. Normal PATIENT PORTAL CONCIERGE. Small caliber posterior cerebr al arteries but they are patent. 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 Aneurysm proje cts laterally from the trifurcation. No increase in size. No additional aneurysms are identified. LEF T MCA is normal Anterior cerebral arteries are normal. Visualized internal carotid arteries are patent without signif icant stenosis. MR/MR angio head wo con [id number] IMPRESSION: 1. 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 2. No additional aneurysms. 3. No stenosis within the [place].
== END 2024-03-23 09:41 | disposition home or self-care (01) ==
LOC: RAD 09:41
PROVIDERS: PCP Family Medicine; Visit Provider Family Medicine
DX: I67.1 Cerebral aneurysm, nonruptured (principal)
CPT/HCPCS: 70544

== ENCOUNTER 2024-04-17 08:27 | Outpatient (CLI) | payer MEDICARE, OTHER, SELFPAY ==
[2024-04-17 08:51] LABS: Hematocrit 42.6 % (36-47); Mean Corpuscular HGB Conc 31.5 g/dL (30-55); Mean Corpuscular Hemoglobin 30.7 pg (27-33); Mean Corpuscular Volume 97.5 fl (85-98); Mean Platelet Volume 9.2 fL (7.4-10.4); Platelet Count 330 10^3/cmm (157-399); Red Blood Count 4.37 10^6/uL (3.85-5.65); Red Cell Distribution Width 12.5 % (12.1-15.1); White Blood Count 6.07 10^3/uL (3.29-11.43)
[2024-04-17 09:35] LABS: Ferritin 278 ng/mL (15-150); Iron 70 ug/dL (37-145)
== END 2024-04-17 08:28 | disposition home or self-care (01) ==
LOC: LAB 08:29
PROVIDERS: PCP Family Medicine; Visit Provider Family Medicine
DX: K90.9 Intestinal malabsorption, unspecified (principal); D50.8 Other iron deficiency anemias; D64.9 Anemia, unspecified
CPT/HCPCS: 36415; 82728; 83540; 85027

== ENCOUNTER → 2024-05-01 10:15 | Outpatient (BNVA) | payer MEDICARE, OTHER, SELFPAY | PROVIDERS: PCP Family Medicine; Visit Provider Student in an Organized Health Care Education/Training Program | DX: M65.351 Trigger finger, right little finger (principal); M65.311 Trigger thumb, right thumb; Z98.890 Other specified postprocedural states | CPT/HCPCS: 20600; 99214; J3301; J3490 ==

== ENCOUNTER → 2024-08-04 09:19 | Outpatient (BNVA) | payer MEDICARE, OTHER, SELFPAY | PROVIDERS: PCP Family Medicine; Visit Provider Student in an Organized Health Care Education/Training Program | DX: M65.311 Trigger thumb, right thumb (principal); M65.351 Trigger finger, right little finger; Z98.890 Other specified postprocedural states | CPT/HCPCS: 99213 ==

== ENCOUNTER → 2024-08-18 09:10 | Outpatient (BNVA) | payer MEDICARE, OTHER, SELFPAY | PROVIDERS: PCP Family Medicine; Visit Provider Orthopaedic Surgery | DX: M54.9 Dorsalgia, unspecified (principal); M48.062 Spinal stenosis, lumbar region with neurogenic claudication | CPT/HCPCS: 72100; 99214 ==

== ENCOUNTER 2024-08-27 13:43 | Outpatient (CLI) | payer MEDICARE, OTHER, SELFPAY ==
[2024-08-27 14:33] LABS: Hematocrit 38.3 % (36-47); Mean Corpuscular HGB Conc 29.5 g/dL (30-55); Mean Corpuscular Hemoglobin 26.7 pg (27-33); Mean Corpuscular Volume 90.3 fl (85-98); Mean Platelet Volume 9.2 fL (7.4-10.4); Platelet Count 414 10^3/cmm (157-399); Red Blood Count 4.24 10^6/uL (3.85-5.65); Red Cell Distribution Width 14.4 % (12.1-15.1); White Blood Count 6.91 10^3/uL (3.29-11.43)
[2024-08-27 15:10] LABS: 25 Hydroxy Vitamin D 34 ng/mL (30-100); Alanine Aminotransferase 12 U/L (0-33); Albumin Level 4.4 g/dL (3.5-5.2); Alkaline Phosphatase 123 U/L (35-105); Aspartate Amino Transferase 18 U/L (0-32); Blood Urea Nitrogen 11 mg/dL (8-23); Calcium 9.5 mg/dL (8.5-10.5); Carbon Dioxide 29 mmol/L (22-29); Chloride 103 mmol/L (98-107); Chol HDL Ratio 2.68 mg/dL (0.0-4.40); Cholesterol 252 mg/dL (0-200); Ferritin 22 ng/mL (15-150); Globulin 2.7 g/dL (1.3-4.6); Glucose 98 mg/dL (65-115); HDL Cholesterol 94 mg/dL (60-100); Iron 24 ug/dL (37-145); LDL Cholesterol Calculated 137 mg/dL (50-129); LDL HDL Ratio 1.46 RATIO (0.00-3.22); Osmolality Calculated 293 mOsm/kg (285-295); Sodium 142 mmol/L (136-145); Thyroid Stimulating Hormone 0.49 uIU/mL (0.27-4.20); Total Bilirubin 0.2 mg/dL (0.15-1.2); Total Protein 7.1 g/dL (6.6-8.7); Triglycerides 103 mg/dL (0-150); Vitamin B12 487 pg/mL (232-1245)
[2024-08-27 15:15] LABS: Folate Level 15.7 ng/mL (4.8-37.3)
== END 2024-08-27 13:44 | disposition home or self-care (01) ==
PROVIDERS: PCP Family Medicine; Visit Provider Family Medicine
DX: E55.9 Vitamin D deficiency, unspecified (principal); D64.9 Anemia, unspecified; J44.9 Chronic obstructive pulmonary disease, unspecified; R20.0 Anesthesia of skin; R79.89 Other specified abnormal findings of blood chemistry; K29.71 Gastritis, unspecified, with bleeding; F41.1 Generalized anxiety disorder
CPT/HCPCS: 36415; 80053; 80061; 82306; 82607; 82728; 82746; 83540; 84443; 85027

== ENCOUNTER 2024-09-04 11:32 | Outpatient (CLI) | payer MEDICARE, OTHER, SELFPAY ==
--- NOTE | 2024-09-04 11:42 | MR_ITS ---
WS: [id number] MRI LUMBAR SPINE NONCONTRAST TECHNIQUE: Sagittal T1, T2 and STIR imaging. Axial T1 and T2 imaging. CLINICAL INFORMATION: BACK PAIN COMPARISON: CT 07/24/2023 and MRI 2020 FINDINGS: Mild lumbar curve. Mild compression of the superior endplate L3 with fatty marrow endplate type changes. No significant edema. Endplate Schmorl's node. Slight anterolisthesis L4 on L5 appears progressed compared to the prior studies. Hemilaminectomies L4-5. L1-L2: Mild annular bulging. Mild facet arthropathy. Foramen are patent. L2-L3: Mild annular bulging. Slight retrolisthesis. Slight narrowing of the subarticular recess bilaterally. Mild facet arthropathy. Foramen are patent. L3-L4: Mild annular bulging. Narrowing of the RIGHT greater than LEFT subarticular recess with progressed mild central canal stenosis. Moderate facet arthropathy. Mild RIGHT and no significant LEFT foraminal narrowing. L4-L5: Slight anterolisthesis. Prior hemilaminectomies. Mild disc bulging with impingement on the LEFT greater than RIGHT subarticular recess and traversing L5 nerve roots. Foramen are patent. Moderate facet arthropathy. L5-S1: Mild disc osteophyte complex. Slight effacement of the ventral thecal sac. Slight contact of the S1 nerve roots. Spinal canal and foramen are patent. Moderate facet arthropathy. Visualized pelvic bony structures: Normal. Paravertebral soft tissues: Normal. MR/MR lumbar spine wo con* [id number] IMPRESSION: 1. Mild lumbar curve. No acute compression. Chronic compression of the L3 supe rior endplate. 2. Slightly progressed grade 1 anterolisthesis L4 on L5 with prior hemilaminec madeline defects at this level. Disc bulging with slight impingement on traversing LEFT greater than RIGHT L5 nerve roots in the subarticular recess. 3. Progressed mild central canal stenosis L3-4 with impingement on the shayna ing RIGHT greater than LEFT L4 nerve roots with mild RIGHT foraminal narrowing. 4. Narrowing of the L2-3 subarticular recess. 5. Moderate facet arthropathy L4-L5 and L5-S1.
== END 2024-09-04 11:33 | disposition home or self-care (01) ==
LOC: RAD 11:35
PROVIDERS: PCP Family Medicine; Visit Provider Orthopaedic Surgery
DX: M51.369 Other intervertebral disc degeneration, lumbar region without mention of lumbar back pain or lower extremity pain (principal); M43.8X6 Other specified deforming dorsopathies, lumbar region; R93.7 Abnormal findings on diagnostic imaging of other parts of musculoskeletal system; M96.89 Other intraoperative and postprocedural complications and disorders of the musculoskeletal system; M48.061 Spinal stenosis, lumbar region without neurogenic claudication; M47.896 Other spondylosis, lumbar region; M47.897 Other spondylosis, lumbosacral region; M51.46 Schmorl's nodes, lumbar region; Z98.890 Other specified postprocedural states; M25.78 Osteophyte, vertebrae
CPT/HCPCS: 72148

== ENCOUNTER → 2024-09-15 15:19 | Outpatient (BNVA) | payer MEDICARE, OTHER, SELFPAY | PROVIDERS: PCP Family Medicine; Visit Provider Orthopaedic Surgery | DX: Z98.890 Other specified postprocedural states (principal); M48.062 Spinal stenosis, lumbar region with neurogenic claudication | CPT/HCPCS: 99214 ==

== ENCOUNTER 2024-10-12 09:30 | Oncology outpatient (recurring) (ONCR) | payer MEDICARE, OTHER, SELFPAY ==
[2024-09-29] MEDS: ferric carboxy (PYXIS) 750 MG in sodium chloride 0.9% (100 ml) 100 ML 345 MG IV (14:20)
[2024-09-29 14:32] VITALS: BP 114/66; PULSE 75; RESP 18; TEMP 37.4
[2024-09-29 14:54] VITALS: BP 110/69; PULSE 60; RESP 17; O2SAT 93
[2024-10-06] MEDS: ferric carboxy (PYXIS) 750 MG in sodium chloride 0.9% (100 ml) 100 ML 345 MG IV (13:42)
[2024-10-06 14:17] VITALS: BP 125/80; PULSE 71; TEMP 36.3; O2SAT 89
--- NOTE | 2024-10-12 09:30 | CT_ITS ---
WS: [id number] CT chest wo con [id number] HISTORY: R91.1 - Solitary pulmonary nodule TECHNIQUE: Axial imaging performed through the thorax. Coronal and sagittal reformats are submitted. All CT scans at [facility] [place] use at least one of these dose optimization techniques: automated exposure control; mA and/or kV adjustment per patient size (includes targeted exams where dose is matched to clinical indication); or iterative reconstruction. CONTRAST: None DLP: 364.21 mGy.cm COMPARISON: 03/17/2020, 11/26/2021, 05/13/2019 Lungs and central airway: LEFT upper lobectomy. Volume loss in the LEFT thorax. Postsurgical clips are noted at the apex and at the LEFT hilum. 4 mm nodule periphery LEFT lower lobe has not significantly changed since 2019. Pleura: No effusion. Heart and pericardium: Normal size heart. Small pericardial effusion was also present on the prior exam. Mediastinum and andrea: No mediastinum or hilar adenopathy. Vessels: Mild atherosclerosis aorta. No aneurysm. Normal size pulmonary artery. Chest wall and lower neck: No soft tissue masses. Upper abdomen: Small hiatal hernia. No adrenal mass. Prior cholecystectomy. Cystic mass just beyond the pancreatic neck measures 10 x 10 mm. This mass was not present on 12/14/2021. No distal pancreatic atrophy. No duct dilatation. Osseous structures: Mild increased thoracic kyphosis. T4, T5, T7 anterior wedging. CT/CT chest wo con [id number] IMPRESSION: 1. LEFT upper lobectomy. Stable postsurgical changes. 2. Long-term stability 4 mm LEFT lower lobe pulmonary nodule. 3. New cystic pancreatic mass measuring 10 x 10 mm involving the body of the p ancreas. Differential includes cystic neoplasm/IPMN. Recommend additional imagi ng evaluation. MR or CT with and without contrast protocol for pancreatic mass recommended. 4. No mediastinal or hilar adenopathy. 5. Prior cholecystectomy.
== END 2024-10-12 23:59 | disposition home or self-care (01) ==
LOC: RAD 10-13 00:01 → ONCMED 10-13 10:43
PROVIDERS: PCP Family Medicine; Visit Provider Family Medicine
DX: Z53.9 Procedure and treatment not carried out, unspecified reason; R91.1 Solitary pulmonary nodule; J96.11 Chronic respiratory failure with hypoxia; A31.0 Pulmonary mycobacterial infection; Z90.49 Acquired absence of other specified parts of digestive tract; K86.89 Other specified diseases of pancreas
CPT/HCPCS: 20553; 71250; 96365; 99214; J1010; J1439; J3490

== ENCOUNTER 2024-10-16 11:54 | Oncology outpatient (recurring) (ONCR) | payer MEDICARE, OTHER, SELFPAY ==
--- NOTE | 2024-10-16 12:00 | CT_ITS ---
WS: [id number] CT ABDOMEN AND PELVIS WITH AND WITHOUT CONTRAST HISTORY: K86.89 -pancreatic cystic mass. TECHNIQUE: Unenhanced 2 mm axial imaging first performed through the abdomen. Post contrast imaging through the abdomen and pelvis. Oral contrast has not been provided. Sagittal and coronal reformats are submitted. All CT scans at [facility] use at least one of these dose optimization techniques: automated exposure control; mA and/or kV adjustment per patient size (includes targeted exams where dose is matched to clinical indication); or iterative reconstruction. CONTRAST: Omnipaque 350; 95 mL IV. DLP: 1168.03 mGy.cm COMPARISON: 10/12/2024, 12/14/2021 Small circumferential pericardial effusion was previously described. Emphysematous changes at the lung bases. Pancreas: Reidentified is a cystic mass associated with the proximal body of the pancreas. Cyst measures 1.3 x 1.0 cm and does appear to connect to the main pancreatic duct. There is no enhancement. This is a single unilocular cyst. There are few additional calcifications noted in the pancreatic head. The pancreatic duct is minimally prominent but not considered dilated at this time. No evidence for pancreatitis. No solid enhancing mass. Common bile duct is normal. Prior cholecystectomy. Normal liver and portal vein. Slightly lobulated spleen with calcification along the superior splenic margin. Probably from prior injury or hematoma which is calcified. No acute injury. No adrenal mass. Mild cortical thinning and scarring of each kidney and a few scattered areas which are too small to characterize but probably representing cysts. No renal obstruction. Moderate atherosclerosis aorta. Infrarenal abdominal aortic aneurysm at 3.2 cm. Mixture of calcified and noncalcified plaque. Aneurysm tapers to the bifurcation. No adenopathy or ascites. No GI tract obstruction. Mild distal colonic diverticulosis without acute diverticulitis. Increased soft tissue near the rectum. There may be a small rectocele present. Concave deformity superior endplate of L3. CT/CT abdomen pelvis wo/w [id number] IMPRESSION: 1. New cystic mass in the proximal pancreatic body appears to connect to the m ain pancreatic duct. Mass measures 1.3 x 1.0 cm. This is consistent with a side branch IPMN. There is an increased risk for malignancy associated with main emanuel t IPMN. This side branch cystic lesion has very few concerning features. Imagin g follow-up recommended for an IPMN of 1-2 cm is 6-month follow-up by CT for 1 year, yearly for 2 years and then every 2 years. 2. Prior cholecystectomy. 3. Infrarenal abdominal aortic aneurysm 3.2 cm. 4. No ascites or adenopathy. 5. Small circumferential pericardial effusion.
[2024-10-16] MEDS: iohexol 350 mg/mL 500 mL Btl (per mL) IV (12:18)
== END 2024-11-11 23:59 | disposition home or self-care (01) ==
LOC: RAD 11:56 → ONCMED 10-19 09:49
PROVIDERS: PCP Family Medicine; Visit Provider Family Medicine
DX: D50.8 Other iron deficiency anemias (principal); Z79.899 Other long term (current) drug therapy; K86.89 Other specified diseases of pancreas
CPT/HCPCS: 74178

== ENCOUNTER → 2024-10-20 09:36 | Outpatient (BNVA) | payer MEDICARE, OTHER, SELFPAY | PROVIDERS: PCP Family Medicine; Visit Provider Nurse Practitioner Family | DX: M48.062 Spinal stenosis, lumbar region with neurogenic claudication (principal); F17.210 Nicotine dependence, cigarettes, uncomplicated | CPT/HCPCS: 99213 ==

== ENCOUNTER 2024-10-21 08:42 | Outpatient (RCR) | payer MEDICARE, OTHER, SELFPAY | END 2024-11-11 23:59 | disposition home or self-care (01) | LOC: SPT 08:42 | PROVIDERS: Visit Provider Orthopaedic Surgery | DX: M48.061 Spinal stenosis, lumbar region without neurogenic claudication (principal) | CPT/HCPCS: 97110; 97161; G0283 ==

== ENCOUNTER 2024-11-12 06:30 | Outpatient (RCR) | payer MEDICARE, OTHER, SELFPAY | END 2024-11-19 11:09 | disposition home or self-care (01) | LOC: SPT 06:30 | PROVIDERS: PCP Family Medicine; Visit Provider Orthopaedic Surgery | DX: M48.061 Spinal stenosis, lumbar region without neurogenic claudication (principal) | CPT/HCPCS: 97110; 97530 ==

== ENCOUNTER → 2024-12-02 12:12 | Outpatient (BNVA) | payer MEDICARE, OTHER, SELFPAY | PROVIDERS: PCP Family Medicine; Visit Provider Nurse Practitioner Family | DX: M25.531 Pain in right wrist (principal) | CPT/HCPCS: 73110; 99214 ==

== ENCOUNTER → 2024-12-08 13:44 | Outpatient (BNVA) | payer MEDICARE, OTHER, SELFPAY | PROVIDERS: PCP Family Medicine; Visit Provider Family Medicine | DX: R51.9 Headache, unspecified (principal) | CPT/HCPCS: 85027; 85651; 86140 ==

== ENCOUNTER → 2024-12-23 09:11 | Outpatient (BNVA) | payer MEDICARE, OTHER, SELFPAY | PROVIDERS: PCP Family Medicine; Visit Provider Anesthesiology Pain Medicine | DX: M47.816 Spondylosis without myelopathy or radiculopathy, lumbar region (principal); M54.50 Low back pain, unspecified; G89.29 Other chronic pain | CPT/HCPCS: 64493; 64494; 64495; J3490; J9999 ==

== ENCOUNTER → 2024-12-24 07:59 | Outpatient (BNVA) | payer MEDICARE, OTHER, SELFPAY | PROVIDERS: PCP Family Medicine; Visit Provider Orthopaedic Surgery | DX: M43.16 Spondylolisthesis, lumbar region (principal) | CPT/HCPCS: 99213 ==

== ENCOUNTER → 2024-12-29 09:20 | Outpatient (BNVA) | payer MEDICARE, OTHER, SELFPAY | PROVIDERS: PCP Family Medicine; Visit Provider Nurse Practitioner Family | DX: M54.50 Low back pain, unspecified (principal); G89.29 Other chronic pain; M25.531 Pain in right wrist; M47.816 Spondylosis without myelopathy or radiculopathy, lumbar region | CPT/HCPCS: 99214 ==

== ENCOUNTER → 2025-01-12 14:28 | Outpatient (BNVA) | payer MEDICARE, OTHER, SELFPAY | PROVIDERS: PCP Family Medicine; Visit Provider Anesthesiology Pain Medicine | DX: M47.816 Spondylosis without myelopathy or radiculopathy, lumbar region (principal); M54.9 Dorsalgia, unspecified; M54.50 Low back pain, unspecified; G89.29 Other chronic pain | CPT/HCPCS: 64493; 64494; 64495; J3490; J9999 ==

== ENCOUNTER → 2025-01-26 09:44 | Outpatient (BNVA) | payer MEDICARE, OTHER, SELFPAY | PROVIDERS: PCP Family Medicine; Visit Provider Nurse Practitioner Family | DX: M54.50 Low back pain, unspecified (principal); G89.29 Other chronic pain; M25.531 Pain in right wrist; M47.816 Spondylosis without myelopathy or radiculopathy, lumbar region | CPT/HCPCS: 99214 ==

== ENCOUNTER 2025-02-25 08:40 | Outpatient (CLI) | payer MEDICARE, OTHER, SELFPAY ==
--- NOTE | 2025-02-25 | MM_ITS ---
WS: [id number] BILATERAL SCREENING DIGITAL TOMOSYNTHESIS MAMMOGRAM WITH CAD HISTORY: ANNUAL SCREENING COMPARISON: 02/13/2024, 11/02/2022 Bilateral CC and MLO views with tomosynthesis and synthetic mammography submitted. Computer aided detection analyzed. Breast composition: There are scattered areas of fibroglandular density. No suspicious masses, microcalcifications or architectural distortion. Benign calcifications LEFT breast. MM/MM scr BI tomosynthesis [id number] IMPRESSION: BI-RADS: 2 - Benign. FOLLOW UP: 1 Year Follow-up
== END 2025-02-25 08:41 | disposition home or self-care (01) ==
LOC: RAD 08:41
PROVIDERS: PCP Family Medicine; Visit Provider Family Medicine
DX: Z12.31 Encounter for screening mammogram for malignant neoplasm of breast (principal); R92.323 Mammographic fibroglandular density, bilateral breasts; R92.1 Mammographic calcification found on diagnostic imaging of breast
CPT/HCPCS: 77063; 77067

== ENCOUNTER → 2025-03-09 13:15 | Outpatient (BNVA) | payer MEDICARE, OTHER, SELFPAY | PROVIDERS: PCP Family Medicine; Visit Provider Family Medicine | DX: Z98.890 Other specified postprocedural states (principal); K90.9 Intestinal malabsorption, unspecified; D64.9 Anemia, unspecified; E61.1 Iron deficiency; F41.1 Generalized anxiety disorder; K29.71 Gastritis, unspecified, with bleeding | CPT/HCPCS: 80053; 82306; 82607; 82728; 82746; 83550; 83735; 84439; 84443; 85025 ==

== ENCOUNTER → 2025-03-22 08:34 | Outpatient (BNVA) | payer MEDICARE, OTHER, SELFPAY | PROVIDERS: PCP Family Medicine; Visit Provider Internal Medicine | DX: J96.11 Chronic respiratory failure with hypoxia (principal); R91.1 Solitary pulmonary nodule; J44.9 Chronic obstructive pulmonary disease, unspecified; Z90.2 Acquired absence of lung [part of]; Z86.19 Personal history of other infectious and parasitic diseases; Z87.891 Personal history of nicotine dependence | CPT/HCPCS: 99214 ==

== ENCOUNTER → 2025-03-31 10:33 | Outpatient (BNVA) | payer MEDICARE, OTHER, SELFPAY | PROVIDERS: PCP Family Medicine; Visit Provider Anesthesiology Pain Medicine | DX: M47.816 Spondylosis without myelopathy or radiculopathy, lumbar region (principal) | CPT/HCPCS: 64635; 64636; J1100; J9999 ==

== ENCOUNTER 2025-04-01 07:30 | Oncology outpatient (recurring) (ONCR) | payer MEDICARE, OTHER, SELFPAY ==
--- NOTE | 2025-04-01 07:33 | CTR_ITS ---
PROCEDURE INFORMATION: Exam: CT Chest With Contrast; Diagnostic Exam date and time: 04/01/2025 8:02 AM Age: 74 years old Clinical indication: Condition or disease; Lung condition and disease; Copd; Prior surgery; Surgery date: 1-6 months; Surgery type: Left upper lobe due to mac TECHNIQUE: Imaging protocol: Diagnostic computed tomography of the chest with contrast. Radiation optimization: All CT scans at this facility use at least one of these dose optimization techniques: automated exposure control; mA and/or kV adjustment per patient size (includes targeted exams where dose is matched to clinical indication); or iterative reconstruction. Contrast material: OMNI 350; Contrast volume: 100 ml; Contrast route: INTRAVENOUS (IV); COMPARISON: CT chest wo con [id number] 10/12/2024 9:34 AM RADIATION DOSE METRICS: Total DLP (mGy-cm): 338.29 FINDINGS: Thyroid: Subcentimeter thyroid nodules. Lungs: Moderate centrilobular emphysematous changes are present. Similar postsurgical changes from left upper lobectomy. 4 mm noncalcified right lower lobe pulmonary nodule which was not seen on the prior exam. Stable 4 mm left lower lobe pulmonary nodule. Mild atelectasis without consolidation. Pleural spaces: No pneumothorax or pleural effusion. Heart: Heart size is within normal limits. Similar small amount of pericardial fluid. Coronary arteries: Mild atherosclerotic calcification of the coronary arteries. Lymph nodes: No pathologically enlarged lymph nodes demonstrated. Vasculature: Similar enlargement of the main pulmonary artery, suspicious for pulmonary artery hypertension. No central pulmonary emboli seen. No aneurysm or dissection in the visualized aorta. The visualized aorta and vasculature demonstrates mild to moderate atherosclerotic calcification. Gallbladder and biliary ducts: Prior cholecystectomy. Pancreas: 11 mm cystic lesion again seen in the pancreatic body. Spleen: Similar coarse calcification along the splenic dome. Kidneys: Small fluid attenuating left renal cyst. Bones/joints: The thoracic spine demonstrates mild degenerative changes at multiple levels. Similar mild anterior wedging deformities in the couple of midthoracic vertebral bodies Soft tissues: Unremarkable. CT/CT chest w con* [id number]: 1[address] No CT evidence of acute cardiopulmonary abnormality. 2. Emphysema with postsurgical changes from left upper lobectomy. 3. 4 mm noncalcified right lower lobe pulmonary nodule which was not seen on the prior exam. Stable 4 mm left lower lobe nodule. For patients at low risk (minimal or absent history of smoking and of other known risk factors), no routine follow-up is indicated. For patients at high risk (history of smoking or of other known risk factors), consider optional CT Chest at 12 months. (Reference: Barbara) 4. Similar enlargement of the main pulmonary artery, suspicious for pulmonary artery hypertension. 5. 11 mm cystic lesion again seen in the pancreatic body. Recommend additional imaging evaluation with pancreatic protocol MRI or CT as previously stated. COMMENTS: 1. Consistent with the [employer]'s Incidental Findings Committee white paper (J Am Roz Radiol 2018): Any incidental renal lesion less than 1 cm or classified as too small to characterize, or any incidental cystic renal lesion characterized as simple-appearing, is likely benign. No follow-up imaging is recommended for these lesions per consensus recommendations based on imaging criteria. 2. Consistent with the [employer]'s Incidental Findings Committee white paper (J Am Roz Radiol 2015): In patients aged 35 years and older with an incidental thyroid nodule equal to or greater than 1.[address], MRI or extrathyroidal US, further evaluation with dedicated thyroid US is recommended for patients with normal life expectancy and without comorbidities. For smaller nodules without suspicious features, no further evaluation or follow up is recommended. 3. The presence of pulmonary emphysema on CT is an independent risk factor for lung cancer. In the absence of a history or active diagnosis of lung cancer, it is recommended that this patient with emphysema be evaluated for enrollment in a low dose CT lung cancer screening program. REFERENCES: Barbara Velazco, et al. Guidelines for Management of Incidental Pulmonary Nodules Detected on CT Images: From the [employer] 2017. Radiology. 2017;284(1):228-243.
[2025-04-01] MEDS: iohexol 350 mg/mL 500 mL Btl (per mL) IV (08:13)
== END 2025-04-13 23:59 | disposition home or self-care (01) ==
LOC: RAD 07:58 → ONCMED 09:18
PROVIDERS: PCP Family Medicine; Visit Provider Family Medicine
DX: J44.9 Chronic obstructive pulmonary disease, unspecified; J43.9 Emphysema, unspecified; Z98.890 Other specified postprocedural states; R91.8 Other nonspecific abnormal finding of lung field; I77.89 Other specified disorders of arteries and arterioles; K86.89 Other specified diseases of pancreas; E04.2 Nontoxic multinodular goiter; J98.11 Atelectasis; I25.10 Atherosclerotic heart disease of native coronary artery without angina pectoris; I70.0 Atherosclerosis of aorta; Z90.49 Acquired absence of other specified parts of digestive tract; D73.89 Other diseases of spleen; N28.1 Cyst of kidney, acquired; M47.894 Other spondylosis, thoracic region; M48.54XA Collapsed vertebra, not elsewhere classified, thoracic region, initial encounter for fracture; Z53.9 Procedure and treatment not carried out, unspecified reason
CPT/HCPCS: 64636; 71260

== ENCOUNTER 2025-04-13 07:16 | Outpatient (CLI) | payer MEDICARE, OTHER, SELFPAY ==
[2025-04-13 07:40] VITALS: PULSE 78; RESP 18; O2SAT 95
== END 2025-04-13 07:17 | disposition home or self-care (01) ==
LOC: RT 07:17
PROVIDERS: PCP Family Medicine; Visit Provider Internal Medicine
DX: J44.9 Chronic obstructive pulmonary disease, unspecified (principal); J98.8 Other specified respiratory disorders; R94.2 Abnormal results of pulmonary function studies
CPT/HCPCS: 94060; 94726; 94729

== ENCOUNTER 2025-04-15 08:49 | Oncology outpatient (recurring) (ONCR) | payer MEDICARE, OTHER, SELFPAY | END 2025-05-14 23:59 | disposition home or self-care (01) | LOC: ONCMED 08:53 | PROVIDERS: PCP Family Medicine; Visit Provider Family Medicine | DX: M47.816 Spondylosis without myelopathy or radiculopathy, lumbar region (principal); G89.29 Other chronic pain | CPT/HCPCS: 64635; 64636 ==

== ENCOUNTER → 2025-04-29 09:13 | Outpatient (BNVA) | payer MEDICARE, OTHER, SELFPAY | PROVIDERS: PCP Family Medicine; Visit Provider Nurse Practitioner Family | DX: M47.816 Spondylosis without myelopathy or radiculopathy, lumbar region (principal); G89.29 Other chronic pain; M25.531 Pain in right wrist | CPT/HCPCS: 99214 ==

== ENCOUNTER 2025-05-04 14:36 | Outpatient (CLI) | payer MEDICARE, OTHER, SELFPAY ==
--- NOTE | 2025-05-04 15:00 | XR_ITS ---
WS: [id number] SCREENING DEXA SCAN [employer] CLINICAL INFORMATION: Z78.0 - Asymptomatic menopausal state COMPARISON: 2022 FINDINGS: The L1-L4 bone mineral density measures 1.194 g/cm2. This corresponds to a T score score of 0.1 and Z score of 1.3. Left femoral neck bone mineral density measures 0.936 g/cm2. This corresponds to a T score of -0.6 and Z score of 0.7. Right femoral neck bone mineral density measures 0.885 g/cm2. This corresponds to a T score -1.0of and Z score of 0.3. Mean femoral neck bone mineral density measures 0.911 g/cm2. This corresponds to a T score of -0.8 and Z score of 0.5. XR/XR DEXA axial skeleton* [id number] IMPRESSION: Normal bone mineralization lumbar spine. Osteopenia RIGHT femoral neck. Patient's FRAX calculated 10 year probability for major osteoporotic fracture i s 10.2% and osteoporotic hip fracture is 1.5%. Bone density lumbar spine decreased -4.3% Bone density femoral necks decreased -2.8%
== END 2025-05-04 14:37 | disposition home or self-care (01) ==
LOC: RAD 14:38
PROVIDERS: PCP Family Medicine; Visit Provider Nurse Practitioner Women's Health
DX: Z78.0 Asymptomatic menopausal state (principal); Z13.820 Encounter for screening for osteoporosis; M85.88 Other specified disorders of bone density and structure, other site
CPT/HCPCS: 77080

== ENCOUNTER 2025-05-21 09:10 | Outpatient (CLI) | payer MEDICARE, OTHER, SELFPAY | END 2025-05-21 09:11 | disposition home or self-care (01) | LOC: RT 09:15 | PROVIDERS: PCP Family Medicine; Visit Provider Internal Medicine | DX: J96.11 Chronic respiratory failure with hypoxia (principal); Z99.81 Dependence on supplemental oxygen; R91.1 Solitary pulmonary nodule; A31.0 Pulmonary mycobacterial infection; K86.2 Cyst of pancreas; J44.89 Other specified chronic obstructive pulmonary disease; Z87.891 Personal history of nicotine dependence | CPT/HCPCS: 94618; 99214; Q3014 ==

== ENCOUNTER 2025-06-07 10:52 | Outpatient (CLI) | payer MEDICARE, OTHER, SELFPAY ==
[2025-06-07 11:40] LABS: Hematocrit 32.5 % (36-47); Hemoglobin 9.90 g/dL (11.27-16.99); Mean Corpuscular HGB Conc 30.5 g/dL (30-55); Mean Corpuscular Hemoglobin 27.2 pg (27-33); Mean Corpuscular Volume 89.3 fl (85-98); Nucleated Red Blood Cells % 0 %; Platelet Count 322 10^3/cmm (157-399); Red Blood Count 3.64 10^6/uL (3.85-5.65); White Blood Count 5.70 10^3/uL (3.29-11.43)
[2025-06-07 12:07] LABS: Alanine Aminotransferase 13 U/L (0-33); Albumin Level 4.0 g/dL (3.5-5.2); Alkaline Phosphatase 129 U/L (35-105); Anion Gap 10.4 (5-19); Aspartate Amino Transferase 18 U/L (0-32); Blood Urea Nitrogen 19 mg/dL (8-23); Calcium 8.6 mg/dL (8.5-10.5); Carbon Dioxide 29 mmol/L (22-29); Chloride 106 mmol/L (98-107); Globulin 2.8 g/dL (1.3-4.6); Glucose 103 mg/dL (65-115); Osmolality Calculated 295 mOsm/kg (285-295); Potassium 4.4 mmol/L (3.5-5.1); Sodium 141 mmol/L (136-145); Total Protein 6.8 g/dL (6.6-8.7)
== END 2025-06-07 10:53 | disposition home or self-care (01) ==
LOC: LAB 10:54
PROVIDERS: PCP Family Medicine; Visit Provider Family Medicine
DX: Z01.812 Encounter for preprocedural laboratory examination (principal)
CPT/HCPCS: 36415; 80053; 85025

== ENCOUNTER → 2025-06-08 08:37 | Outpatient (BNVA) | payer MEDICARE, OTHER, SELFPAY | PROVIDERS: PCP Family Medicine; Visit Provider Nurse Practitioner Family | DX: M47.816 Spondylosis without myelopathy or radiculopathy, lumbar region (principal); G89.29 Other chronic pain; Z87.891 Personal history of nicotine dependence | CPT/HCPCS: 99214 ==

== ENCOUNTER 2025-06-16 09:12 | Outpatient (CLI) | payer MEDICARE, OTHER, SELFPAY ==
[2025-06-16 09:38] LABS: Hematocrit 33.6 % (36-47); Hemoglobin 10.20 g/dL (11.27-16.99); Mean Corpuscular HGB Conc 30.4 g/dL (30-55); Mean Corpuscular Hemoglobin 25.8 pg (27-33); Mean Corpuscular Volume 85.1 fl (85-98); Nucleated Red Blood Cells % 0 %; Platelet Count 349 10^3/cmm (157-399); Red Blood Count 3.95 10^6/uL (3.85-5.65); White Blood Count 6.04 10^3/uL (3.29-11.43)
[2025-06-16 10:03] LABS: Alanine Aminotransferase 12 U/L (0-33); Albumin Level 4.2 g/dL (3.5-5.2); Alkaline Phosphatase 129 U/L (35-105); Anion Gap 16.7 (5-19); Aspartate Amino Transferase 22 U/L (0-32); Blood Urea Nitrogen 18 mg/dL (8-23); Calcium 9.3 mg/dL (8.5-10.5); Carbon Dioxide 28 mmol/L (22-29); Chloride 101 mmol/L (98-107); Ferritin 22 ng/mL (15-150); Globulin 2.7 g/dL (1.3-4.6); Glucose 91 mg/dL (65-115); Iron 19 ug/dL (37-145); Osmolality Calculated 295 mOsm/kg (285-295); Potassium 3.7 mmol/L (3.5-5.1); Sodium 142 mmol/L (136-145); Total Iron Binding Capacity 421 mcg/dl; Total Protein 6.9 g/dL (6.6-8.7); Unsaturated Iron Binding 402 ug/dL (112-347)
[2025-06-16 10:17] LABS: Vitamin B12 541 pg/mL (232-1245)
== END 2025-06-16 09:13 | disposition home or self-care (01) ==
LOC: LAB 09:15
PROVIDERS: PCP Family Medicine; Visit Provider Family Medicine
DX: K29.71 Gastritis, unspecified, with bleeding (principal); D64.9 Anemia, unspecified; R00.0 Tachycardia, unspecified; K90.9 Intestinal malabsorption, unspecified; E61.1 Iron deficiency; R79.89 Other specified abnormal findings of blood chemistry
CPT/HCPCS: 36415; 80053; 82607; 82728; 82746; 83540; 83550; 85025

== ENCOUNTER 2025-07-14 08:30 | Oncology outpatient (recurring) (ONCR) | payer MEDICARE, OTHER, SELFPAY ==
[2025-07-07] MEDS: ferric carboxy (PYXIS) 750 MG in sodium chloride 0.9% (100 ml) 100 ML 345 MG IV (10:56)
[2025-07-07 11:40] VITALS: BP 109/69; PULSE 74; RESP 17; TEMP 36.6; O2SAT 97
[2025-07-14 08:40] VITALS: BP 119/71; PULSE 86; RESP 17; TEMP 36.4; O2SAT 98
[2025-07-14] MEDS: ferric carboxy (PYXIS) 750 MG in sodium chloride 0.9% (100 ml) 100 ML 345 MG IV (08:50)
[2025-07-14 09:20] VITALS: BP 116/76; PULSE 88; RESP 17; TEMP 36.4; O2SAT 98
== END 2025-07-14 23:59 | disposition home or self-care (01) ==
PROVIDERS: PCP Family Medicine; Visit Provider Family Medicine
DX: D50.8 Other iron deficiency anemias; Z79.899 Other long term (current) drug therapy; Z53.9 Procedure and treatment not carried out, unspecified reason
CPT/HCPCS: 96365; J1439